=== PATIENT | male | born 1995 | race Caucasian/White ===

== ENCOUNTER 2016-06-28 18:50 | Inpatient (IN) | payer MEDICAID, OTHER ==
[~2016-06-28] VITALS: Ht 175.3 cm; Wt 127.9 kg
[~2016-06-28 18:50] MED LIST: GABA-531 PO; QUET300T2 PO; VENL-68 PO
[2016-06-28 19:35] LABS: BASOPHILS % (AUTO) 0.6 % (0.0-2.0); EOSINOPHILS % (AUTO) 0.8 % (1.0-6.0); HEMATOCRIT 42.2 % (41-53); HEMOGLOBIN 13.8 g/dL (13.5-17.5); LYMPHOCYTES # (AUTO) 1.9 K/uL (1.0-4.8); LYMPHOCYTES % (AUTO) 16.5 % (22.0-44.0); MEAN CORPUSCULAR HEMOGLOBIN 28.5 pg (26.0-34.0); MEAN CORPUSCULAR HGB CONC 32.7 G/dL (31.0-37.0); MEAN CORPUSCULAR VOLUME 87 fL (80-100); MONOCYTES # (AUTO) 0.9 K/uL (0.1-1.0); MONOCYTES % (AUTO) 7.3 % (2.0-9.0); NEUTROPHILS # (AUTO) 8.7 K/uL (1.8-7.7); NEUTROPHILS % (AUTO) 74.8 % (40.0-70.0); PLATELET COUNT (AUTO) 327 K/uL (150-450); RED BLOOD CELL COUNT(AUTO) 4.85 MIL/uL (4.50-5.90); RED CELL DISTRIBUTION WIDTH 14.4 % (11.5-14.5); WHITE BLOOD COUNT (AUTO) 11.7 K/uL (4.5-11.0)
[2016-06-28] MEDS ORDERED: QUEtiapine FUMARATE 100 MG TABLET PO PRN (20:00)
[2016-06-28] MEDS ORDERED: ZOLPIDEM TARTRATE 10 MG TABLET PO PRN (20:00)
[2016-06-28] MEDS: LORazepam 2 MG TABLET PO PRN (20:51)
[2016-06-28 21:17] LABS: ANION GAP 12 mmol/L (8-16); CALCIUM, TOTAL 9.1 mg/dL (8.8-10.5); CARBON DIOXIDE 25 mmol/L (22-29); CHLORIDE 104 mmol/L (98-107); CREATININE 0.79 mg/dL (0.60-1.30); GLOMERULAR FILTR. RATE CALC > 60 mL/min (>60); POTASSIUM 3.8 mmol/L (3.5-5.1); SODIUM SERUM 141 mmol/L (136-145); UREA NITROGEN, BLOOD 13 mg/dL (7-18)
[2016-06-28 21:23] LABS: ALANINE AMINOTRANSFERASE 49 U/L (12-78); ALBUMIN 3.8 g/dL (3.4-5.0); ASPARTATE AMINOTRANSFERASE 19 U/L (15-37); BILIRUBIN,TOTAL 0.1 mg/dL (0.1-1.0)
[2016-06-28] MEDS: GABAPENTIN 300 MG CAPSULE PO SCH (21:26)
[2016-06-28] MEDS: QUEtiapine FUMARATE 300 MG TABLET PO SCH (21:26)
[2016-06-29 01:03] VITALS: BP 116/75
[2016-06-29] MEDS ORDERED: INFLUENZA VIRUS VACCINE QVS 2016-17 (3YR+)/PF 60 MCG/0.5 ML SYRINGE IM ONE (01:45)
[2016-06-29] MEDS: GABAPENTIN 300 MG CAPSULE PO SCH ×3 (09:50→16:03)
[2016-06-29] MEDS: VENLAFAXINE HCL 150 MG ER CAPSULE PO SCH (09:50)
[2016-06-29] MEDS: LORazepam 2 MG TABLET PO PRN ×3 (16:03→20:55)
[2016-06-29 16:15] VITALS: BP 119/87
[2016-06-29] MEDS: QUEtiapine FUMARATE 300 MG TABLET PO SCH (20:02)
[2016-06-30 06:26] VITALS: BP 104/52
[2016-06-30] MEDS ORDERED: ACETAMINOPHEN 325 MG TABLET PO PRN (08:15)
[2016-06-30] MEDS ORDERED: IBUPROFEN 400 MG TABLET PO PRN (08:15)
[2016-06-30 08:32] VITALS: BP 113/71
[2016-06-30] MEDS: VENLAFAXINE HCL 150 MG ER CAPSULE PO SCH (08:56)
[2016-06-30] MEDS: GABAPENTIN 300 MG CAPSULE PO SCH ×3 (08:56→16:25)
[2016-06-30] MEDS: LORazepam 2 MG TABLET PO PRN ×2 (09:31→16:25)
[2016-06-30 16:10] VITALS: BP 137/84
[2016-06-30] MEDS: QUEtiapine FUMARATE 300 MG TABLET PO SCH (20:58)
[2016-07-01 00:24] VITALS: BP 122/66
[2016-07-01 06:43] VITALS: BP 142/89
[2016-07-01] MEDS: LORazepam 2 MG TABLET PO PRN (06:47)
[2016-07-01 08:00] LABS: BASOPHILS # (AUTO) 0.05 K/uL (0.00-0.20); BASOPHILS % (AUTO) 0.5 % (0.0-2.0); EOSINOPHILS # (AUTO) 0.32 K/uL (0.00-0.70); EOSINOPHILS % (AUTO) 3.37 % (1.0-6.0); HEMATOCRIT 41.2 % (41-53); HEMOGLOBIN 13.4 g/dL (13.5-17.5); LYMPHOCYTES # (AUTO) 2.5 K/uL (1.0-4.8); LYMPHOCYTES % (AUTO) 26.2 % (22.0-44.0); MEAN CORPUSCULAR HEMOGLOBIN 28.4 pg (26.0-34.0); MEAN CORPUSCULAR HGB CONC 32.5 G/dL (31.0-37.0); MEAN CORPUSCULAR VOLUME 87 fL (80-100); MONOCYTES # (AUTO) 0.8 K/uL (0.1-1.0); MONOCYTES % (AUTO) 8.6 % (2.0-9.0); NEUTROPHILS # (AUTO) 5.8 K/uL (1.8-7.7); NEUTROPHILS % (AUTO) 61.3 % (40.0-70.0); PLATELET COUNT (AUTO) 276 K/uL (150-450); RED BLOOD CELL COUNT(AUTO) 4.71 MIL/uL (4.50-5.90); RED CELL DISTRIBUTION WIDTH 14.3 % (11.5-14.5); WHITE BLOOD COUNT (AUTO) 9.4 K/uL (4.5-11.0)
[2016-07-01 08:06] VITALS: BP 116/88
[2016-07-01 08:21] LABS: HEMOGLOBIN A1C 5.7 % (4.5-6.2)
[2016-07-01 08:41] LABS: THYROID STIMULATING HORMONE 0.93 uIU/mL (0.36-3.74)
[2016-07-01] MEDS: GABAPENTIN 300 MG CAPSULE PO SCH ×2 (10:03→12:56)
[2016-07-01] MEDS: VENLAFAXINE HCL 150 MG ER CAPSULE PO SCH (10:03)
== END 2016-07-01 14:00 | disposition home or self-care (01) | DRG 750 ==
LOC: EMS 18:54 → B2S 20:30
PROC: 3E0234Z Introduction of Serum, Toxoid and Vaccine into Muscle, Percutaneous Approach (ICD-10-PCS; principal; 2016-06-29)
DX: F25.1 Schizoaffective disorder, depressive type (principal); R45.851 Suicidal ideations; Z68.41 Body mass index [BMI] 40.0-44.9, adult; F41.9 Anxiety disorder, unspecified; F17.210 Nicotine dependence, cigarettes, uncomplicated; F11.10 Opioid abuse, uncomplicated; D72.829 Elevated white blood cell count, unspecified; Z23 Encounter for immunization; Z79.899 Other long term (current) drug therapy; Z71.51 Drug abuse counseling and surveillance of drug abuser; Z91.5 Personal history of self-harm; E66.9 Obesity, unspecified
CPT/HCPCS: 83036; 84443; 90471; 99285; G0480

== ENCOUNTER 2016-07-10 19:10 | Emergency (ER) | payer MEDICAID ==
[~2016-07-10] VITALS: Ht 175.3 cm; Wt 100.0 kg
[2016-07-10 19:34] VITALS: BP 111/60
[2016-07-10 20:23] LABS: BASOPHILS % (AUTO) 0.5 % (0.0-2.0); EOSINOPHILS % (AUTO) 1.9 % (1.0-6.0); HEMOGLOBIN 12.8 g/dL (13.5-17.5); LYMPHOCYTES # (AUTO) 1.6 K/uL (1.0-4.8); LYMPHOCYTES % (AUTO) 11.9 % (22.0-44.0); MEAN CORPUSCULAR HEMOGLOBIN 28.6 pg (26.0-34.0); MEAN CORPUSCULAR HGB CONC 32.8 G/dL (31.0-37.0); MEAN CORPUSCULAR VOLUME 87 fL (80-100); MONOCYTES # (AUTO) 0.9 K/uL (0.1-1.0); MONOCYTES % (AUTO) 6.8 % (2.0-9.0); NEUTROPHILS # (AUTO) 10.4 K/uL (1.8-7.7); NEUTROPHILS % (AUTO) 78.9 % (40.0-70.0); PLATELET COUNT (AUTO) 295 K/uL (150-450); RED BLOOD CELL COUNT(AUTO) 4.47 MIL/uL (4.50-5.90); RED CELL DISTRIBUTION WIDTH 13.9 % (11.5-14.5); WHITE BLOOD COUNT (AUTO) 13.2 K/uL (4.5-11.0)
[2016-07-10 20:37] LABS: ANION GAP 9 mmol/L (8-16); CALCIUM, TOTAL 8.6 mg/dL (8.8-10.5); CARBON DIOXIDE 30 mmol/L (22-29); CHLORIDE 101 mmol/L (98-107); CREATININE 0.93 mg/dL (0.60-1.30); GLOMERULAR FILTR. RATE CALC > 60 mL/min (>60); POTASSIUM 3.8 mmol/L (3.5-5.1); SODIUM SERUM 140 mmol/L (136-145); UREA NITROGEN, BLOOD 10 mg/dL (7-18)
[2016-07-10 20:42] LABS: ALANINE AMINOTRANSFERASE 46 U/L (12-78); ALBUMIN 3.5 g/dL (3.4-5.0); ASPARTATE AMINOTRANSFERASE 23 U/L (15-37); BILIRUBIN,TOTAL 0.2 mg/dL (0.1-1.0); TOTAL PROTEIN, SERUM 7.6 g/dL (6.4-8.2)
== END 2016-07-11 00:48 | disposition left against medical advice (07) ==
LOC: EMS 19:12
DX: F41.9 Anxiety disorder, unspecified (principal); F32.9 Major depressive disorder, single episode, unspecified; F20.9 Schizophrenia, unspecified; F17.210 Nicotine dependence, cigarettes, uncomplicated; F12.90 Cannabis use, unspecified, uncomplicated; F11.90 Opioid use, unspecified, uncomplicated; Z76.0 Encounter for issue of repeat prescription; Z53.21 Procedure and treatment not carried out due to patient leaving prior to being seen by health care provider
CPT/HCPCS: 36415; 80053; 80307; 85025; G0480

== ENCOUNTER 2016-07-21 03:31 | Inpatient (IN) | payer MEDICAID ==
[~2016-07-21] VITALS: Ht 175.3 cm; Wt 126.6 kg
[2016-07-21 04:24] LABS: BASOPHILS # (AUTO) 0.14 K/uL (0.00-0.20); BASOPHILS % (AUTO) 1.1 % (0.0-2.0); EOSINOPHILS # (AUTO) 0.13 K/uL (0.00-0.70); EOSINOPHILS % (AUTO) 1.03 % (1.0-6.0); HEMATOCRIT 41.9 % (41-53); HEMOGLOBIN 13.9 g/dL (13.5-17.5); LYMPHOCYTES # (AUTO) 2.1 K/uL (1.0-4.8); MEAN CORPUSCULAR HEMOGLOBIN 28.5 pg (26.0-34.0); MEAN CORPUSCULAR HGB CONC 33.1 G/dL (31.0-37.0); MEAN CORPUSCULAR VOLUME 86 fL (80-100); MONOCYTES # (AUTO) 0.7 K/uL (0.1-1.0); MONOCYTES % (AUTO) 5.4 % (2.0-9.0); NEUTROPHILS # (AUTO) 9.8 K/uL (1.8-7.7); NEUTROPHILS % (AUTO) 76.5 % (40.0-70.0); PLATELET COUNT (AUTO) 327 K/uL (150-450); RED BLOOD CELL COUNT(AUTO) 4.87 MIL/uL (4.50-5.90); RED CELL DISTRIBUTION WIDTH 13.9 % (11.5-14.5); WHITE BLOOD COUNT (AUTO) 12.8 K/uL (4.5-11.0)
[2016-07-21 04:29] LABS: ANION GAP 7 mmol/L (8-16); CALCIUM, TOTAL 9.5 mg/dL (8.8-10.5); CARBON DIOXIDE 32 mmol/L (22-29); CHLORIDE 102 mmol/L (98-107); CREATININE 0.97 mg/dL (0.60-1.30); GLOMERULAR FILTR. RATE CALC > 60 mL/min (>60); POTASSIUM 4.4 mmol/L (3.5-5.1); SODIUM SERUM 141 mmol/L (136-145); UREA NITROGEN, BLOOD 12 mg/dL (7-18)
[2016-07-21 04:34] LABS: ALANINE AMINOTRANSFERASE 46 U/L (12-78); ALBUMIN 3.9 g/dL (3.4-5.0); ASPARTATE AMINOTRANSFERASE 18 U/L (15-37); BILIRUBIN,TOTAL 0.3 mg/dL (0.1-1.0); TOTAL PROTEIN, SERUM 8.3 g/dL (6.4-8.2)
[2016-07-21] MEDS ORDERED: ZOLPIDEM TARTRATE 10 MG TABLET PO PRN (05:15)
[2016-07-21] MEDS ORDERED: LORazepam 2 MG TABLET PO ONE (06:15)
[2016-07-21 09:00] VITALS: BP 120/70
[2016-07-21] MEDS: LORazepam 2 MG TABLET PO PRN (16:05)
[2016-07-21] MEDS: BACITRACIN 28.4 GM OINTMENT TP SCH (16:06)
[2016-07-21 17:04] VITALS: BP 116/59
[2016-07-21] MEDS: QUEtiapine FUMARATE 300 MG TABLET PO SCH (21:17)
[2016-07-21] MEDS ORDERED: IBUPROFEN 400 MG TABLET PO PRN (22:45)
[2016-07-21] MEDS ORDERED: ACETAMINOPHEN 325 MG TABLET PO PRN (22:45)
[2016-07-22 07:02] VITALS: BP 120/68
[2016-07-22 07:05] LABS: BASOPHILS % (AUTO) 0.2 % (0.0-2.0); HEMATOCRIT 41.7 % (41-53); HEMOGLOBIN 13.7 g/dL (13.5-17.5); LYMPHOCYTES % (AUTO) 21.4 % (22.0-44.0); MEAN CORPUSCULAR HEMOGLOBIN 28.6 pg (26.0-34.0); MEAN CORPUSCULAR HGB CONC 32.9 G/dL (31.0-37.0); MEAN CORPUSCULAR VOLUME 87 fL (80-100); MONOCYTES # (AUTO) 0.6 K/uL (0.1-1.0); MONOCYTES % (AUTO) 6.7 % (2.0-9.0); NEUTROPHILS # (AUTO) 6.5 K/uL (1.8-7.7); NEUTROPHILS % (AUTO) 68.7 % (40.0-70.0); PLATELET COUNT (AUTO) 304 K/uL (150-450); RED CELL DISTRIBUTION WIDTH 13.9 % (11.5-14.5); WHITE BLOOD COUNT (AUTO) 9.5 K/uL (4.5-11.0)
[2016-07-22 07:39] LABS: THYROID STIMULATING HORMONE 1.05 uIU/mL (0.36-3.74)
[2016-07-22 07:56] LABS: HEMOGLOBIN A1C 5.6 % (4.5-6.2)
[2016-07-22 08:30] VITALS: BP 131/91
[2016-07-22] MEDS: VENLAFAXINE HCL 150 MG ER CAPSULE PO SCH (08:53)
[2016-07-22] MEDS: LORazepam 2 MG TABLET PO PRN ×2 (08:54→16:19)
[2016-07-22] MEDS: HALOPERIDOL 5 MG TABLET PO PRN ×2 (08:54→16:19)
[2016-07-22] MEDS ORDERED: VENLAFAXINE HCL 150 MG ER CAPSULE PO SCH (09:00)
[2016-07-22] MEDS: BACITRACIN 28.4 GM OINTMENT TP SCH ×2 (10:23→16:20)
[2016-07-22] MEDS: QUEtiapine FUMARATE 300 MG TABLET PO SCH (20:29)
[2016-07-22 20:37] VITALS: BP 128/71
[2016-07-23 08:07] VITALS: BP 144/86
[2016-07-23] MEDS: HALOPERIDOL 5 MG TABLET PO PRN ×2 (08:53→16:18)
[2016-07-23] MEDS: VENLAFAXINE HCL 150 MG ER CAPSULE PO SCH (08:53)
[2016-07-23] MEDS: LORazepam 2 MG TABLET PO PRN ×2 (08:53→16:18)
[2016-07-23] MEDS: BACITRACIN 28.4 GM OINTMENT TP SCH ×2 (08:58→16:27)
[2016-07-23 16:00] VITALS: BP 132/79
[2016-07-23] MEDS: QUEtiapine FUMARATE 300 MG TABLET PO SCH (21:20)
[2016-07-24] MEDS: LORazepam 2 MG TABLET PO PRN ×2 (08:06→12:06)
[2016-07-24] MEDS: VENLAFAXINE HCL 150 MG ER CAPSULE PO SCH (08:06)
[2016-07-24 09:53] VITALS: BP 119/84
[2016-07-24] MEDS: BACITRACIN 28.4 GM OINTMENT TP SCH (11:55)
[2016-07-24] MEDS ORDERED: BACI120O TP (15:00)
== END 2016-07-24 16:30 | disposition home or self-care (01) | DRG 750 ==
LOC: EMS 03:32 → 3EI 07:50
DX: F25.1 Schizoaffective disorder, depressive type (principal); R45.851 Suicidal ideations; F41.9 Anxiety disorder, unspecified; D72.829 Elevated white blood cell count, unspecified; F17.210 Nicotine dependence, cigarettes, uncomplicated; F11.10 Opioid abuse, uncomplicated; F10.10 Alcohol abuse, uncomplicated; F12.10 Cannabis abuse, uncomplicated; F15.10 Other stimulant abuse, uncomplicated; Z79.899 Other long term (current) drug therapy; Z71.51 Drug abuse counseling and surveillance of drug abuser; Z71.41 Alcohol abuse counseling and surveillance of alcoholic
CPT/HCPCS: 83036; 84443; 87081; 99285; G0480

== ENCOUNTER 2016-07-26 01:41 | Inpatient (IN) | payer MEDICAID ==
[~2016-07-26] VITALS: Ht 175.3 cm; Wt 128.7 kg
[~2016-07-26 01:41] MED LIST changes: +BACI120O TP; -GABA-531 PO
[2016-07-26 02:13] LABS: BASOPHILS # (AUTO) 0.09 K/uL (0.00-0.20); BASOPHILS % (AUTO) 0.7 % (0.0-2.0); EOSINOPHILS # (AUTO) 0.37 K/uL (0.00-0.70); EOSINOPHILS % (AUTO) 2.94 % (1.0-6.0); HEMATOCRIT 43.9 % (41-53); HEMOGLOBIN 14.7 g/dL (13.5-17.5); LYMPHOCYTES # (AUTO) 2.5 K/uL (1.0-4.8); LYMPHOCYTES % (AUTO) 20.3 % (22.0-44.0); MEAN CORPUSCULAR HEMOGLOBIN 28.5 pg (26.0-34.0); MEAN CORPUSCULAR HGB CONC 33.4 G/dL (31.0-37.0); MEAN CORPUSCULAR VOLUME 85 fL (80-100); MONOCYTES % (AUTO) 8.3 % (2.0-9.0); NEUTROPHILS # (AUTO) 8.4 K/uL (1.8-7.7); NEUTROPHILS % (AUTO) 67.7 % (40.0-70.0); PLATELET COUNT (AUTO) 381 K/uL (150-450); RED BLOOD CELL COUNT(AUTO) 5.14 MIL/uL (4.50-5.90); RED CELL DISTRIBUTION WIDTH 14.8 % (11.5-14.5); WHITE BLOOD COUNT (AUTO) 12.5 K/uL (4.5-11.0)
[2016-07-26 02:14] LABS: ANION GAP 8 mmol/L (8-16); CALCIUM, TOTAL 9.4 mg/dL (8.8-10.5); CARBON DIOXIDE 29 mmol/L (22-29); CHLORIDE 102 mmol/L (98-107); CREATININE 0.82 mg/dL (0.60-1.30); GLOMERULAR FILTR. RATE CALC > 60 mL/min (>60); POTASSIUM 4.1 mmol/L (3.5-5.1); SODIUM SERUM 139 mmol/L (136-145); UREA NITROGEN, BLOOD 14 mg/dL (7-18)
[2016-07-26 02:21] LABS: ALANINE AMINOTRANSFERASE 53 U/L (12-78); ALBUMIN 4.1 g/dL (3.4-5.0); ASPARTATE AMINOTRANSFERASE 23 U/L (15-37); BILIRUBIN,TOTAL 0.4 mg/dL (0.1-1.0); TOTAL PROTEIN, SERUM 8.5 g/dL (6.4-8.2)
[2016-07-26] MEDS ORDERED: LORazepam 2 MG TABLET PO ONE (03:45)
[2016-07-26] MEDS ORDERED: PNEUMOCOCCAL VACCINE POLYVALENT 0.5 ML VIAL [PPSV23] IM ONE (04:30)
[2016-07-26] MEDS ORDERED: -PHARMACY VACCINE NOTE- MISC ONE ×2 (04:30)
[2016-07-26 04:42] VITALS: BP 148/76
[2016-07-26] MEDS ORDERED: MAGNESIUM HYDROXIDE SUSPENSION 30 ML UDCUP PO PRN (06:45)
[2016-07-26] MEDS ORDERED: ACETAMINOPHEN 325 MG TABLET PO PRN ×2 (06:45→09:15)
[2016-07-26 08:30] VITALS: BP 118/62
[2016-07-26] MEDS ORDERED: IBUPROFEN 400 MG TABLET PO PRN (09:15)
[2016-07-26] MEDS: LORazepam 2 MG TABLET PO PRN ×2 (11:25→17:51)
[2016-07-26] MEDS: HALOPERIDOL 5 MG TABLET PO PRN ×2 (11:26→17:51)
[2016-07-26 19:34] VITALS: BP 130/74
[2016-07-27] MEDS: LORazepam 2 MG TABLET PO PRN ×2 (08:00→16:03)
[2016-07-27] MEDS: HALOPERIDOL 5 MG TABLET PO PRN ×2 (08:00→16:03)
[2016-07-27 08:43] VITALS: BP 144/62
[2016-07-27] MEDS: VENLAFAXINE HCL 75 MG ER CAPSULE PO SCH (09:01)
[2016-07-27] MEDS: GABAPENTIN 300 MG CAPSULE PO SCH ×3 (09:01→16:02)
[2016-07-27 09:32] LABS: APPEARANCE,URINE CLEAR (CLEAR); GLUCOSE, URINE (UA) NEGATIVE (NEGATIVE); KETONES,URINE NEGATIVE (NEGATIVE); LEUKOCYTE ESTERASE ,URINE NEGATIVE (NEGATIVE); OCCULT BLOOD,URINE NEGATIVE (NEGATIVE); PROTEIN,URINE NEGATIVE (NEGATIVE)
[2016-07-27 09:34] LABS: ADD UA MICROSCOPIC NO
[2016-07-27 16:19] VITALS: BP 109/54
[2016-07-27] MEDS: QUEtiapine FUMARATE 300 MG TABLET PO SCH (20:09)
[2016-07-28 08:00] VITALS: BP 128/78
[2016-07-28] MEDS: HALOPERIDOL 5 MG TABLET PO PRN (08:49)
[2016-07-28] MEDS: LORazepam 2 MG TABLET PO PRN ×3 (08:49→20:08)
[2016-07-28] MEDS: VENLAFAXINE HCL 75 MG ER CAPSULE PO SCH (08:49)
[2016-07-28] MEDS: GABAPENTIN 300 MG CAPSULE PO SCH ×3 (08:49→16:03)
[2016-07-28 17:39] VITALS: BP 134/93
[2016-07-28] MEDS: QUEtiapine FUMARATE 300 MG TABLET PO SCH (20:09)
[2016-07-28] MEDS ORDERED: VENL-67 PO (22:05)
[2016-07-28] MEDS ORDERED: GABA-531 PO (22:05)
[2016-07-29 06:46] VITALS: BP 125/85
== END 2016-07-29 07:30 | disposition home or self-care (01) | DRG 750 ==
LOC: EMS 01:42 → 3EI 02:00
DX: F25.1 Schizoaffective disorder, depressive type (principal); R45.851 Suicidal ideations; Z59.0 Homelessness; F25.0 Schizoaffective disorder, bipolar type; F60.3 Borderline personality disorder; R00.0 Tachycardia, unspecified; F41.9 Anxiety disorder, unspecified; F17.210 Nicotine dependence, cigarettes, uncomplicated; F12.90 Cannabis use, unspecified, uncomplicated; F11.90 Opioid use, unspecified, uncomplicated; Z71.51 Drug abuse counseling and surveillance of drug abuser; Z28.21 Immunization not carried out because of patient refusal; Z79.899 Other long term (current) drug therapy; Z62.819 Personal history of unspecified abuse in childhood; Z81.3 Family history of other psychoactive substance abuse and dependence
CPT/HCPCS: 87081; 99285; G0480

== ENCOUNTER 2016-08-04 21:46 | Inpatient (IN) | payer MEDICAID ==
[~2016-08-04] VITALS: Ht 175.3 cm; Wt 124.6 kg
[~2016-08-04 21:46] MED LIST changes: -BACI120O TP; +GABA-531 PO; +VENL-67 PO; -VENL-68 PO
[2016-08-04 22:34] LABS: BASOPHILS % (AUTO) 0.7 % (0.0-2.0); EOSINOPHILS % (AUTO) 1.3 % (1.0-6.0); HEMATOCRIT 39.8 % (41-53); HEMOGLOBIN 12.8 g/dL (13.5-17.5); LYMPHOCYTES # (AUTO) 2.3 K/uL (1.0-4.8); LYMPHOCYTES % (AUTO) 18.6 % (22.0-44.0); MEAN CORPUSCULAR HEMOGLOBIN 28.1 pg (26.0-34.0); MEAN CORPUSCULAR HGB CONC 32.2 G/dL (31.0-37.0); MEAN CORPUSCULAR VOLUME 87 fL (80-100); MONOCYTES # (AUTO) 0.8 K/uL (0.1-1.0); MONOCYTES % (AUTO) 6.7 % (2.0-9.0); NEUTROPHILS # (AUTO) 8.8 K/uL (1.8-7.7); NEUTROPHILS % (AUTO) 72.7 % (40.0-70.0); PLATELET COUNT (AUTO) 246 K/uL (150-450); RED BLOOD CELL COUNT(AUTO) 4.56 MIL/uL (4.50-5.90); RED CELL DISTRIBUTION WIDTH 14.5 % (11.5-14.5); WHITE BLOOD COUNT (AUTO) 12.1 K/uL (4.5-11.0)
[2016-08-04 22:54] LABS: ANION GAP 11 mmol/L (8-16); CALCIUM, TOTAL 8.3 mg/dL (8.8-10.5); CARBON DIOXIDE 25 mmol/L (22-29); CHLORIDE 105 mmol/L (98-107); GLOMERULAR FILTR. RATE CALC > 60 mL/min (>60); SODIUM SERUM 141 mmol/L (136-145); UREA NITROGEN, BLOOD 13 mg/dL (7-18)
[2016-08-04 22:57] LABS: ALANINE AMINOTRANSFERASE 51 U/L (12-78); ALBUMIN 3.6 g/dL (3.4-5.0); ASPARTATE AMINOTRANSFERASE 23 U/L (15-37); BILIRUBIN,TOTAL 0.5 mg/dL (0.1-1.0); TOTAL PROTEIN, SERUM 7.4 g/dL (6.4-8.2)
[2016-08-04] MEDS ORDERED: ZOLPIDEM TARTRATE 10 MG TABLET PO PRN (23:15)
[2016-08-04] MEDS ORDERED: DiphenhydrAMINE HCL 50 MG/ML VIAL IM ONE (23:30)
[2016-08-04] MEDS ORDERED: LORazepam 2 MG/ML VIAL IM ONE (23:30)
[2016-08-04] MEDS ORDERED: HALOPERIDOL LACTATE 5 MG/ML VIAL IM ONE (23:30)
[2016-08-04 23:38] VITALS: BP 148/72
[2016-08-05] MEDS ORDERED: POTASSIUM CHLORIDE 20 MEQ ER TABLET PO ONE (00:15)
[2016-08-05 01:36] VITALS: BP 120/74
[2016-08-05] MEDS ORDERED: PNEUMOCOCCAL VACCINE POLYVALENT 0.5 ML VIAL [PPSV23] IM ONE (03:15)
[2016-08-05 08:00] VITALS: BP 130/64
[2016-08-05] MEDS: VENLAFAXINE HCL 75 MG ER CAPSULE PO SCH (09:48)
[2016-08-05] MEDS: LORazepam 2 MG TABLET PO PRN ×2 (09:49→17:10)
[2016-08-05] MEDS: GABAPENTIN 300 MG CAPSULE PO SCH ×3 (09:49→17:10)
[2016-08-05 16:58] VITALS: BP 119/70
[2016-08-05] MEDS: QUEtiapine FUMARATE 300 MG TABLET PO SCH (21:23)
[2016-08-05] MEDS ORDERED: POTASSIUM CHLORIDE 10 MEQ ER TABLET PO ONE (23:00)
[2016-08-06 08:00] VITALS: BP 129/83
[2016-08-06] MEDS: GABAPENTIN 300 MG CAPSULE PO SCH ×3 (09:13→17:07)
[2016-08-06] MEDS: LORazepam 2 MG TABLET PO PRN ×2 (09:13→16:19)
[2016-08-06] MEDS: HALOPERIDOL 5 MG TABLET PO PRN ×2 (09:14→16:19)
[2016-08-06] MEDS: VENLAFAXINE HCL 75 MG ER CAPSULE PO SCH (09:14)
[2016-08-06 16:30] VITALS: BP 126/81
[2016-08-06] MEDS: QUEtiapine FUMARATE 300 MG TABLET PO SCH (21:23)
[2016-08-07] MEDS: VENLAFAXINE HCL 75 MG ER CAPSULE PO SCH (08:14)
[2016-08-07] MEDS: GABAPENTIN 300 MG CAPSULE PO SCH ×3 (08:15→16:13)
[2016-08-07] MEDS: LORazepam 2 MG TABLET PO PRN ×3 (08:16→20:21)
[2016-08-07 09:00] VITALS: BP 115/81
[2016-08-07 17:09] VITALS: BP 141/67
[2016-08-07] MEDS: QUEtiapine FUMARATE 300 MG TABLET PO SCH (20:07)
[2016-08-07] MEDS: HALOPERIDOL 5 MG TABLET PO PRN (20:21)
[2016-08-08] MEDS: VENLAFAXINE HCL 75 MG ER CAPSULE PO SCH (07:44)
[2016-08-08] MEDS: GABAPENTIN 300 MG CAPSULE PO SCH (07:45)
== END 2016-08-08 09:35 | disposition home or self-care (01) | DRG 750 ==
LOC: EMS 21:48 → 3EI 08-05 00:07
DX: F25.0 Schizoaffective disorder, bipolar type (principal); R45.851 Suicidal ideations; Z59.0 Homelessness; E87.6 Hypokalemia; F12.90 Cannabis use, unspecified, uncomplicated; F41.9 Anxiety disorder, unspecified; F17.210 Nicotine dependence, cigarettes, uncomplicated; F11.90 Opioid use, unspecified, uncomplicated; D72.829 Elevated white blood cell count, unspecified; Z79.899 Other long term (current) drug therapy; Z28.21 Immunization not carried out because of patient refusal
CPT/HCPCS: 84132; 87081; 96372; 99285; G0480; J1200; J1630; J2060

== ENCOUNTER 2016-08-18 18:02 | Emergency (ER) | payer MEDICAID ==
[~2016-08-18] VITALS: Ht 177.8 cm; Wt 100.0 kg
[2016-08-18 19:00] VITALS: BP 129/97
[2016-08-18 19:14] LABS: BASOPHILS % (AUTO) 0.2 % (0.0-2.0); EOSINOPHILS % (AUTO) 0.4 % (1.0-6.0); HEMATOCRIT 41.2 % (41-53); HEMOGLOBIN 13.3 g/dL (13.5-17.5); LYMPHOCYTES # (AUTO) 2.1 K/uL (1.0-4.8); LYMPHOCYTES % (AUTO) 16.5 % (22.0-44.0); MEAN CORPUSCULAR HEMOGLOBIN 28.3 pg (26.0-34.0); MEAN CORPUSCULAR HGB CONC 32.3 G/dL (31.0-37.0); MEAN CORPUSCULAR VOLUME 88 fL (80-100); MONOCYTES # (AUTO) 0.7 K/uL (0.1-1.0); MONOCYTES % (AUTO) 5.1 % (2.0-9.0); NEUTROPHILS % (AUTO) 77.8 % (40.0-70.0); PLATELET COUNT (AUTO) 353 K/uL (150-450); RED CELL DISTRIBUTION WIDTH 14.6 % (11.5-14.5); WHITE BLOOD COUNT (AUTO) 12.8 K/uL (4.5-11.0)
[2016-08-18 19:24] LABS: ANION GAP 10 mmol/L (8-16); CALCIUM, TOTAL 9.3 mg/dL (8.8-10.5); CARBON DIOXIDE 27 mmol/L (22-29); CHLORIDE 103 mmol/L (98-107); CREATININE 0.89 mg/dL (0.60-1.30); GLOMERULAR FILTR. RATE CALC > 60 mL/min (>60); POTASSIUM 3.8 mmol/L (3.5-5.1); SODIUM SERUM 140 mmol/L (136-145); UREA NITROGEN, BLOOD 8 mg/dL (7-18)
[2016-08-18 19:30] LABS: ALANINE AMINOTRANSFERASE 45 U/L (12-78); ALBUMIN 3.8 g/dL (3.4-5.0); ASPARTATE AMINOTRANSFERASE 20 U/L (15-37); BILIRUBIN,TOTAL 0.4 mg/dL (0.1-1.0); TOTAL PROTEIN, SERUM 7.9 g/dL (6.4-8.2)
== END 2016-08-18 20:02 | disposition left against medical advice (07) ==
LOC: EMS 18:12
DX: Z00.8 Encounter for other general examination (principal); Z53.21 Procedure and treatment not carried out due to patient leaving prior to being seen by health care provider
CPT/HCPCS: 80053; 85025; G0480

== ENCOUNTER 2016-08-24 21:57 | Emergency (ER) | payer MEDICAID, OTHER ==
[~2016-08-24] VITALS: Ht 175.3 cm; Wt 126.0 kg
[2016-08-25] MEDS ORDERED: QUEtiapine FUMARATE 300 MG TABLET PO ONE (00:45)
[2016-08-25] MEDS ORDERED: VENLAFAXINE HCL 75 MG ER CAPSULE PO ONE (00:45)
[2016-08-25] MEDS ORDERED: GABAPENTIN 300 MG CAPSULE PO ONE (00:45)
[2016-08-25 06:42] VITALS: BP 130/84
== END 2016-08-25 06:51 | disposition home or self-care (01) ==
LOC: EMS 21:59
DX: F25.9 Schizoaffective disorder, unspecified (principal); F41.9 Anxiety disorder, unspecified; F32.9 Major depressive disorder, single episode, unspecified; F11.90 Opioid use, unspecified, uncomplicated; F12.90 Cannabis use, unspecified, uncomplicated; F19.90 Other psychoactive substance use, unspecified, uncomplicated; Z91.19 Patient's noncompliance with other medical treatment and regimen
CPT/HCPCS: 99284

== ENCOUNTER 2016-09-12 20:08 | Inpatient (IN) | payer MEDICAID, OTHER ==
[~2016-09-12] VITALS: Ht 175.3 cm; Wt 135.0 kg
[2016-09-12 21:04] LABS: ANION GAP 11 mmol/L (8-16); CALCIUM, TOTAL 8.6 mg/dL (8.8-10.5); CARBON DIOXIDE 27 mmol/L (22-29); CHLORIDE 103 mmol/L (98-107); GLOMERULAR FILTR. RATE CALC > 60 mL/min (>60); POTASSIUM 3.8 mmol/L (3.5-5.1); SODIUM SERUM 141 mmol/L (136-145); UREA NITROGEN, BLOOD 13 mg/dL (7-18)
[2016-09-12 21:05] LABS: BASOPHILS % (AUTO) 0.3 % (0.0-2.0); EOSINOPHILS % (AUTO) 2.9 % (1.0-6.0); HEMATOCRIT 41.8 % (41-53); HEMOGLOBIN 13.6 g/dL (13.5-17.5); LYMPHOCYTES # (AUTO) 2.3 K/uL (1.0-4.8); LYMPHOCYTES % (AUTO) 27.2 % (22.0-44.0); MEAN CORPUSCULAR HEMOGLOBIN 28.1 pg (26.0-34.0); MEAN CORPUSCULAR HGB CONC 32.5 G/dL (31.0-37.0); MEAN CORPUSCULAR VOLUME 86 fL (80-100); MONOCYTES # (AUTO) 0.7 K/uL (0.1-1.0); MONOCYTES % (AUTO) 7.8 % (2.0-9.0); NEUTROPHILS # (AUTO) 5.2 K/uL (1.8-7.7); NEUTROPHILS % (AUTO) 61.8 % (40.0-70.0); PLATELET COUNT (AUTO) 274 K/uL (150-450); RED BLOOD CELL COUNT(AUTO) 4.84 MIL/uL (4.50-5.90); RED CELL DISTRIBUTION WIDTH 15.1 % (11.5-14.5); WHITE BLOOD COUNT (AUTO) 8.4 K/uL (4.5-11.0)
[2016-09-12 21:10] LABS: ALANINE AMINOTRANSFERASE 50 U/L (12-78); ALBUMIN 3.4 g/dL (3.4-5.0); ASPARTATE AMINOTRANSFERASE 21 U/L (15-37); BILIRUBIN,TOTAL 0.2 mg/dL (0.1-1.0); TOTAL PROTEIN, SERUM 7.1 g/dL (6.4-8.2)
[2016-09-12 21:21] LABS: ACETAMINOPHEN < 2 mcg/mL (10-30)
[2016-09-12 21:34] LABS: SALICYLATE < 2.8 mg/dL (2.8-20.0)
[2016-09-12] MEDS ORDERED: ZOLPIDEM TARTRATE 10 MG TABLET PO PRN (22:30)
[2016-09-12] MEDS ORDERED: LORazepam 2 MG TABLET PO PRN (22:30)
[2016-09-12] MEDS ORDERED: HALOPERIDOL 5 MG TABLET PO PRN (22:30)
[2016-09-12 23:07] VITALS: BP 103/57
[2016-09-13 03:30] VITALS: BP 101/64
[2016-09-13 03:40] VITALS: BP 107/65
[2016-09-13 03:55] VITALS: BP 107/54
[2016-09-13 04:05] VITALS: BP 93/58
[2016-09-13 04:27] LABS: GLUCOSE,POINT OF CARE 74 MG/DL (70-110)
[2016-09-13 05:23] LABS: APPEARANCE,URINE TURBID (CLEAR); GLUCOSE, URINE (UA) NEGATIVE (NEGATIVE); KETONES,URINE NEGATIVE (NEGATIVE); LEUKOCYTE ESTERASE ,URINE NEGATIVE (NEGATIVE); OCCULT BLOOD,URINE NEGATIVE (NEGATIVE); PH,URINE 5.5 (5.0-8.0); PROTEIN,URINE NEGATIVE (NEGATIVE)
[2016-09-13 05:25] LABS: ADD UA MICROSCOPIC YES
[2016-09-13 05:57] LABS: CALCIUM OXALATE CRYSTALS,UR Few /LPF (None Seen); RBC,URINE 0-2 /HPF (0-2); SQUAMOUS EPITHELIAL CELL,UR Few /LPF (None Seen); WBC,URINE 0-2 /HPF (0-5)
[2016-09-13] MEDS ORDERED: GABAPENTIN 300 MG CAPSULE PO SCH (09:00)
[2016-09-13] MEDS ORDERED: VENLAFAXINE HCL 75 MG ER CAPSULE PO SCH (09:00)
[2016-09-13] MEDS ORDERED: IBUP-1546 PO (13:33)
[2016-09-13] MEDS ORDERED: ACET-2247 PO (13:33)
[2016-09-13] MEDS ORDERED: QUEtiapine FUMARATE 300 MG TABLET PO SCH (21:00)
== END 2016-09-13 04:41 | disposition short-term general hospital (02) | DRG 750 ==
LOC: EMS 20:10 → 3EI 23:23
PROVIDERS: ADMIT Psychiatry & Neurology Psychiatry; ATTEND Psychiatry & Neurology Psychiatry
DX: F25.9 Schizoaffective disorder, unspecified (principal); R45.851 Suicidal ideations; Z59.0 Homelessness; F31.9 Bipolar disorder, unspecified; F41.9 Anxiety disorder, unspecified; T40.2X2A Poisoning by other opioids, intentional self-harm, initial encounter; T42.6X2A Poisoning by other antiepileptic and sedative-hypnotic drugs, intentional self-harm, initial encounter; T42.4X2A Poisoning by benzodiazepines, intentional self-harm, initial encounter; T43.592A Poisoning by other antipsychotics and neuroleptics, intentional self-harm, initial encounter; F17.210 Nicotine dependence, cigarettes, uncomplicated; F11.90 Opioid use, unspecified, uncomplicated; Z79.899 Other long term (current) drug therapy; Y93.89 Activity, other specified; Y92.89 Other specified places as the place of occurrence of the external cause; Y99.8 Other external cause status
CPT/HCPCS: 82962; 87086; 93005; 99285; G0480; G0481

== ENCOUNTER 2016-09-13 05:00 | Inpatient (IN) | payer OTHER ==
[2016-09-13 05:36] VITALS: BP 109/62
[2016-09-13] MEDS ORDERED: 0.9% SODIUM CHLORIDE 10 ML SYRINGE IVP PRN (06:30)
[2016-09-13] MEDS ORDERED: PANTOPRAZOLE SODIUM 40 MG/VIAL IVP SCH (09:45)
[2016-09-13] MEDS ORDERED: SODIUM CHLORIDE 0.9% 1,000 ML IV SCH (09:45)
[2016-09-13 10:30] VITALS: BP 108/64
[2016-09-13] MEDS ORDERED: SODIUM CHLORIDE 0.9% 500 ML IV ONE (13:30)
[2016-09-13] MEDS ORDERED: IBUP-1546 PO (13:33)
[2016-09-13] MEDS ORDERED: ACET-2247 PO (13:33)
[2016-09-13 14:15] LABS: BASOPHILS % (AUTO) 0.4 % (0.0-2.0); EOSINOPHILS % (AUTO) 1.7 % (1.0-6.0); HEMATOCRIT 41.1 % (41-53); HEMOGLOBIN 13.1 g/dL (13.5-17.5); LYMPHOCYTES # (AUTO) 1.7 K/uL (1.0-4.8); LYMPHOCYTES % (AUTO) 15.9 % (22.0-44.0); MEAN CORPUSCULAR HEMOGLOBIN 28.1 pg (26.0-34.0); MEAN CORPUSCULAR HGB CONC 31.9 G/dL (31.0-37.0); MEAN CORPUSCULAR VOLUME 88 fL (80-100); MONOCYTES # (AUTO) 0.6 K/uL (0.1-1.0); MONOCYTES % (AUTO) 5.4 % (2.0-9.0); NEUTROPHILS # (AUTO) 8.1 K/uL (1.8-7.7); NEUTROPHILS % (AUTO) 76.6 % (40.0-70.0); PLATELET COUNT (AUTO) 269 K/uL (150-450); RED BLOOD CELL COUNT(AUTO) 4.66 MIL/uL (4.50-5.90); RED CELL DISTRIBUTION WIDTH 14.4 % (11.5-14.5); WHITE BLOOD COUNT (AUTO) 10.5 K/uL (4.5-11.0)
[2016-09-13 14:27] LABS: ANION GAP 5 mmol/L (8-16); CALCIUM, TOTAL 8.3 mg/dL (8.8-10.5); CARBON DIOXIDE 32 mmol/L (22-29); CHLORIDE 105 mmol/L (98-107); CREATININE 0.87 mg/dL (0.60-1.30); GLOMERULAR FILTR. RATE CALC > 60 mL/min (>60); POTASSIUM 4.7 mmol/L (3.5-5.1); SODIUM SERUM 142 mmol/L (136-145); UREA NITROGEN, BLOOD 12 mg/dL (7-18)
== END 2016-09-13 15:05 | DRG 812 ==
LOC: 5N 05:00
PROVIDERS: ADMIT Internal Medicine; ATTEND Internal Medicine
DX: T42.6X1A Poisoning by other antiepileptic and sedative-hypnotic drugs, accidental (unintentional), initial encounter (principal); G92 Toxic encephalopathy; R45.851 Suicidal ideations; F31.9 Bipolar disorder, unspecified; T43.211A Poisoning by selective serotonin and norepinephrine reuptake inhibitors, accidental (unintentional), initial encounter; T43.591A Poisoning by other antipsychotics and neuroleptics, accidental (unintentional), initial encounter; F20.9 Schizophrenia, unspecified; F19.90 Other psychoactive substance use, unspecified, uncomplicated; X58.XXXA Exposure to other specified factors, initial encounter; F11.90 Opioid use, unspecified, uncomplicated; Y93.89 Activity, other specified; Z59.0 Homelessness; Y92.89 Other specified places as the place of occurrence of the external cause; Y99.8 Other external cause status
CPT/HCPCS: C9113; J7030; J7040

== ENCOUNTER 2016-09-13 15:30 | Inpatient (IN) | payer MEDICAID ==
[~2016-09-13] VITALS: Ht 177.8 cm; Wt 123.4 kg
[~2016-09-13 15:30] MED LIST changes: +ACET-2247 PO; +IBUP-1546 PO; +ZOLPIDEM TARTRATE 10 MG TABLET PO PRN
[2016-09-13] MEDS ORDERED: IBUPROFEN 400 MG TABLET PO PRN (15:45)
[2016-09-13] MEDS ORDERED: ACETAMINOPHEN 325 MG TABLET PO PRN (15:45)
[2016-09-13 15:55] VITALS: BP 108/71
[2016-09-13 19:43] VITALS: BP 118/79
[2016-09-13] MEDS: LORazepam 2 MG TABLET PO PRN (20:32)
[2016-09-14 06:42] LABS: BASOPHILS % (AUTO) 0.4 % (0.0-2.0); EOSINOPHILS % (AUTO) 2.5 % (1.0-6.0); HEMATOCRIT 42.5 % (41-53); HEMOGLOBIN 13.5 g/dL (13.5-17.5); LYMPHOCYTES # (AUTO) 2.2 K/uL (1.0-4.8); LYMPHOCYTES % (AUTO) 25.2 % (22.0-44.0); MEAN CORPUSCULAR HEMOGLOBIN 27.9 pg (26.0-34.0); MEAN CORPUSCULAR HGB CONC 31.7 G/dL (31.0-37.0); MEAN CORPUSCULAR VOLUME 88 fL (80-100); MONOCYTES # (AUTO) 0.8 K/uL (0.1-1.0); MONOCYTES % (AUTO) 8.9 % (2.0-9.0); NEUTROPHILS # (AUTO) 5.5 K/uL (1.8-7.7); PLATELET COUNT (AUTO) 285 K/uL (150-450); RED BLOOD CELL COUNT(AUTO) 4.83 MIL/uL (4.50-5.90); RED CELL DISTRIBUTION WIDTH 14.8 % (11.5-14.5); WHITE BLOOD COUNT (AUTO) 8.7 K/uL (4.5-11.0)
[2016-09-14 07:11] LABS: ALANINE AMINOTRANSFERASE 47 U/L (12-78); ANION GAP 6 mmol/L (8-16); ASPARTATE AMINOTRANSFERASE 14 U/L (15-37); BILIRUBIN,TOTAL 0.2 mg/dL (0.1-1.0); CALCIUM, TOTAL 8.8 mg/dL (8.8-10.5); CARBON DIOXIDE 32 mmol/L (22-29); CHLORIDE 105 mmol/L (98-107); CREATININE 0.74 mg/dL (0.60-1.30); GLOMERULAR FILTR. RATE CALC > 60 mL/min (>60); POTASSIUM 4.9 mmol/L (3.5-5.1); SODIUM SERUM 143 mmol/L (136-145); TOTAL PROTEIN, SERUM 6.5 g/dL (6.4-8.2); UREA NITROGEN, BLOOD 16 mg/dL (7-18)
[2016-09-14 08:10] VITALS: BP 142/76
[2016-09-14] MEDS: LORazepam 2 MG TABLET PO PRN ×3 (10:14→21:57)
[2016-09-14 16:00] VITALS: BP 132/78
[2016-09-14] MEDS: HALOPERIDOL 5 MG TABLET PO PRN (16:05)
[2016-09-15 00:33] VITALS: BP 131/67
[2016-09-15] MEDS: LORazepam 2 MG TABLET PO PRN ×3 (09:04→22:25)
[2016-09-15 09:28] VITALS: BP 111/65
[2016-09-15 16:00] VITALS: BP 129/74
[2016-09-15] MEDS: DIVALPROEX SODIUM 500 MG DR TABLET PO SCH (16:33)
[2016-09-16 08:00] VITALS: BP 126/81
[2016-09-16] MEDS: HALOPERIDOL 5 MG TABLET PO PRN (08:36)
[2016-09-16] MEDS: LORazepam 2 MG TABLET PO PRN ×3 (08:36→21:35)
[2016-09-16] MEDS: DIVALPROEX SODIUM 500 MG DR TABLET PO SCH ×2 (08:36→15:58)
[2016-09-16] MEDS: NICOTINE 21 MG/24 HOUR PATCH TD SCH (13:08)
[2016-09-16 16:54] VITALS: BP 110/67
[2016-09-17] MEDS: LORazepam 2 MG TABLET PO PRN (07:47)
[2016-09-17 08:03] VITALS: BP 116/77
[2016-09-17] MEDS: NICOTINE 21 MG/24 HOUR PATCH TD SCH (08:03)
[2016-09-17] MEDS: DIVALPROEX SODIUM 500 MG DR TABLET PO SCH (08:03)
[2016-09-17] MEDS ORDERED: DIVA500T35 PO (11:26)
== END 2016-09-17 12:30 | disposition home or self-care (01) | DRG 750 ==
LOC: 3EI 16:05
PROVIDERS: ADMIT Psychiatry & Neurology Psychiatry; ATTEND Psychiatry & Neurology Psychiatry
DX: F25.9 Schizoaffective disorder, unspecified (principal); F32.9 Major depressive disorder, single episode, unspecified; F19.10 Other psychoactive substance abuse, uncomplicated; Z71.51 Drug abuse counseling and surveillance of drug abuser; Z79.899 Other long term (current) drug therapy; Z72.89 Other problems related to lifestyle

== ENCOUNTER 2016-10-17 20:03 | Emergency (ER) | payer MEDICAID, OTHER ==
[~2016-10-17] VITALS: Ht 177.8 cm; Wt 129.6 kg
[~2016-10-17 20:03] MED LIST changes: -ACET-2247 PO; +DIVA500T35 PO; -GABA-531 PO; -IBUP-1546 PO; -QUET300T2 PO; -VENL-67 PO; -ZOLPIDEM TARTRATE 10 MG TABLET PO PRN
[2016-10-17 20:42] LABS: BASOPHILS # (AUTO) 0.07 K/uL (0.00-0.20); BASOPHILS % (AUTO) 0.7 % (0.0-2.0); EOSINOPHILS # (AUTO) 0.31 K/uL (0.00-0.70); EOSINOPHILS % (AUTO) 3.07 % (1.0-6.0); HEMATOCRIT 42.2 % (41-53); HEMOGLOBIN 13.7 g/dL (13.5-17.5); LYMPHOCYTES # (AUTO) 2.7 K/uL (1.0-4.8); LYMPHOCYTES % (AUTO) 26.8 % (22.0-44.0); MEAN CORPUSCULAR HEMOGLOBIN 28.6 pg (26.0-34.0); MEAN CORPUSCULAR HGB CONC 32.5 G/dL (31.0-37.0); MEAN CORPUSCULAR VOLUME 88 fL (80-100); MONOCYTES # (AUTO) 0.6 K/uL (0.1-1.0); MONOCYTES % (AUTO) 6.1 % (2.0-9.0); NEUTROPHILS # (AUTO) 6.4 K/uL (1.8-7.7); NEUTROPHILS % (AUTO) 63.3 % (40.0-70.0); PLATELET COUNT (AUTO) 279 K/uL (150-450); RED BLOOD CELL COUNT(AUTO) 4.79 MIL/uL (4.50-5.90); RED CELL DISTRIBUTION WIDTH 14.7 % (11.5-14.5); WHITE BLOOD COUNT (AUTO) 10.1 K/uL (4.5-11.0)
[2016-10-17 21:35] LABS: ANION GAP 6 mmol/L (8-16); CALCIUM, TOTAL 9.1 mg/dL (8.8-10.5); CARBON DIOXIDE 30 mmol/L (22-29); CHLORIDE 103 mmol/L (98-107); CREATININE 1.06 mg/dL (0.60-1.30); GLOMERULAR FILTR. RATE CALC > 60 mL/min (>60); POTASSIUM 3.8 mmol/L (3.5-5.1); SODIUM SERUM 139 mmol/L (136-145); UREA NITROGEN, BLOOD 12 mg/dL (7-18)
[2016-10-17 21:41] LABS: ALANINE AMINOTRANSFERASE 37 U/L (12-78); ALBUMIN 4.1 g/dL (3.4-5.0); ASPARTATE AMINOTRANSFERASE 17 U/L (15-37); BILIRUBIN,TOTAL 0.2 mg/dL (0.1-1.0); TOTAL PROTEIN, SERUM 7.7 g/dL (6.4-8.2)
[2016-10-18] MEDS ORDERED: LORazepam 2 MG TABLET PO ONE (00:15)
[2016-10-18] MEDS ORDERED: HALOPERIDOL 5 MG TABLET PO ONE (00:15)
[2016-10-18 01:00] VITALS: BP 141/85
== END 2016-10-18 01:30 | disposition home or self-care (01) ==
LOC: EMS 20:06
DX: F22 Delusional disorders (principal); R44.0 Auditory hallucinations; F31.9 Bipolar disorder, unspecified; F20.9 Schizophrenia, unspecified; F17.210 Nicotine dependence, cigarettes, uncomplicated; F11.90 Opioid use, unspecified, uncomplicated; F19.90 Other psychoactive substance use, unspecified, uncomplicated
CPT/HCPCS: 36415; 80053; 85025; 99284; 99406; G0480

== ENCOUNTER 2016-10-18 07:45 | Inpatient (IN) | payer MEDICAID, OTHER ==
[~2016-10-18] VITALS: Ht 177.8 cm; Wt 118.5 kg
[2016-10-18 10:01] LABS: BASOPHILS % (AUTO) 0.4 % (0.0-2.0); EOSINOPHILS % (AUTO) 4.5 % (1.0-6.0); HEMATOCRIT 42.3 % (41-53); HEMOGLOBIN 13.5 g/dL (13.5-17.5); LYMPHOCYTES # (AUTO) 2.7 K/uL (1.0-4.8); LYMPHOCYTES % (AUTO) 29.2 % (22.0-44.0); MEAN CORPUSCULAR HGB CONC 32.1 G/dL (31.0-37.0); MEAN CORPUSCULAR VOLUME 87 fL (80-100); MONOCYTES # (AUTO) 0.8 K/uL (0.1-1.0); MONOCYTES % (AUTO) 8.5 % (2.0-9.0); NEUTROPHILS # (AUTO) 5.2 K/uL (1.8-7.7); NEUTROPHILS % (AUTO) 57.4 % (40.0-70.0); PLATELET COUNT (AUTO) 285 K/uL (150-450); RED BLOOD CELL COUNT(AUTO) 4.84 MIL/uL (4.50-5.90); RED CELL DISTRIBUTION WIDTH 14.7 % (11.5-14.5); WHITE BLOOD COUNT (AUTO) 9.1 K/uL (4.5-11.0)
[2016-10-18 10:14] LABS: ALANINE AMINOTRANSFERASE 36 U/L (12-78); ALBUMIN 3.9 g/dL (3.4-5.0); ANION GAP -5 mmol/L (8-16); ASPARTATE AMINOTRANSFERASE 16 U/L (15-37); BILIRUBIN,TOTAL 0.2 mg/dL (0.1-1.0); CALCIUM, TOTAL 9.2 mg/dL (8.8-10.5); CARBON DIOXIDE 31 mmol/L (22-29); CHLORIDE 98 mmol/L (98-107); CREATININE 0.84 mg/dL (0.60-1.30); GLOMERULAR FILTR. RATE CALC > 60 mL/min (>60); POTASSIUM 3.8 mmol/L (3.5-5.1); TOTAL PROTEIN, SERUM 7.5 g/dL (6.4-8.2); UREA NITROGEN, BLOOD 11 mg/dL (7-18)
[2016-10-18 10:17] LABS: SODIUM SERUM 124 mmol/L (136-145)
[2016-10-18 10:41] LABS: ANION GAP 4 mmol/L (8-16); CARBON DIOXIDE 31 mmol/L (22-29); CHLORIDE 98 mmol/L (98-107); CREATININE 0.82 mg/dL (0.60-1.30); GLOMERULAR FILTR. RATE CALC > 60 mL/min (>60); SODIUM SERUM 133 mmol/L (136-145); UREA NITROGEN, BLOOD 11 mg/dL (7-18)
[2016-10-18] MEDS ORDERED: HALOPERIDOL 5 MG TABLET PO ONE (11:00)
[2016-10-18] MEDS ORDERED: ZOLPIDEM TARTRATE 10 MG TABLET PO PRN (11:30)
[2016-10-18 12:20] VITALS: BP 116/67
[2016-10-18 18:51] VITALS: BP 112/72
[2016-10-19 08:30] VITALS: BP 122/64
[2016-10-19] MEDS: LORazepam 2 MG TABLET PO PRN ×2 (11:31→20:28)
[2016-10-19] MEDS: HALOPERIDOL 5 MG TABLET PO PRN (16:14)
[2016-10-19] MEDS: DIVALPROEX SODIUM 500 MG DR TABLET PO SCH (16:14)
[2016-10-19 17:32] VITALS: BP 100/66
[2016-10-20] MEDS: DIVALPROEX SODIUM 500 MG DR TABLET PO SCH ×2 (09:07→16:26)
[2016-10-20 09:29] VITALS: BP 120/73
[2016-10-20] MEDS: HALOPERIDOL 5 MG TABLET PO PRN (10:52)
[2016-10-20] MEDS: LORazepam 2 MG TABLET PO PRN ×2 (10:52→16:25)
[2016-10-20 16:00] VITALS: BP 132/64
[2016-10-21 06:50] LABS: ANION GAP 8 mmol/L (8-16); CALCIUM, TOTAL 9.1 mg/dL (8.8-10.5); CARBON DIOXIDE 27 mmol/L (22-29); CHLORIDE 102 mmol/L (98-107); CREATININE 0.82 mg/dL (0.60-1.30); GLOMERULAR FILTR. RATE CALC > 60 mL/min (>60); POTASSIUM 4.6 mmol/L (3.5-5.1); SODIUM SERUM 137 mmol/L (136-145); UREA NITROGEN, BLOOD 17 mg/dL (7-18)
[2016-10-21] MEDS: DIVALPROEX SODIUM 500 MG DR TABLET PO SCH ×2 (08:56→16:02)
[2016-10-21 09:00] VITALS: BP 111/75
[2016-10-21] MEDS: LORazepam 2 MG TABLET PO PRN ×2 (12:19→16:03)
[2016-10-21] MEDS: HALOPERIDOL 5 MG TABLET PO PRN (16:02)
[2016-10-21 18:00] VITALS: BP 119/67
[2016-10-22] MEDS ORDERED: DIVA250T4 PO (00:14)
[2016-10-22 06:18] VITALS: BP 140/71
[2016-10-22] MEDS: DIVALPROEX SODIUM 500 MG DR TABLET PO SCH (08:10)
[2016-10-22 08:46] VITALS: BP 110/59
== END 2016-10-22 09:00 | disposition home or self-care (01) | DRG 750 ==
LOC: EMS 07:51 → 3EI 11:50
PROVIDERS: ADMIT Psychiatry & Neurology Child & Adolescent Psychiatry; ATTEND Psychiatry & Neurology Child & Adolescent Psychiatry
DX: F25.0 Schizoaffective disorder, bipolar type (principal); E87.1 Hypo-osmolality and hyponatremia; F19.10 Other psychoactive substance abuse, uncomplicated; E78.5 Hyperlipidemia, unspecified
CPT/HCPCS: 87081; 99285; G0480

== ENCOUNTER 2016-11-21 06:04 | Emergency (ER) | payer MEDICAID, OTHER ==
[~2016-11-21] VITALS: Ht 175.3 cm; Wt 125.5 kg
[~2016-11-21 06:04] MED LIST changes: +DIVA250T4 PO; -DIVA500T35 PO
[2016-11-21] MEDS ORDERED: HALDOL DECANOATE IM (06:11)
[2016-11-21 06:53] LABS: BASOPHILS % (AUTO) 0.3 % (0.0-2.0); EOSINOPHILS % (AUTO) 1.4 % (1.0-6.0); HEMATOCRIT 42.7 % (41-53); HEMOGLOBIN 14.3 g/dL (13.5-17.5); LYMPHOCYTES # (AUTO) 2.4 K/uL (1.0-4.8); LYMPHOCYTES % (AUTO) 22.8 % (22.0-44.0); MEAN CORPUSCULAR HEMOGLOBIN 29.2 pg (26.0-34.0); MEAN CORPUSCULAR HGB CONC 33.5 G/dL (31.0-37.0); MEAN CORPUSCULAR VOLUME 87 fL (80-100); MONOCYTES # (AUTO) 0.9 K/uL (0.1-1.0); MONOCYTES % (AUTO) 8.4 % (2.0-9.0); NEUTROPHILS # (AUTO) 6.9 K/uL (1.8-7.7); NEUTROPHILS % (AUTO) 67.1 % (40.0-70.0); PLATELET COUNT (AUTO) 284 K/uL (150-450); RED CELL DISTRIBUTION WIDTH 14.7 % (11.5-14.5); WHITE BLOOD COUNT (AUTO) 10.4 K/uL (4.5-11.0)
[2016-11-21 07:09] LABS: ANION GAP 10 mmol/L (8-16); CALCIUM, TOTAL 9.4 mg/dL (8.8-10.5); CARBON DIOXIDE 27 mmol/L (22-29); CHLORIDE 104 mmol/L (98-107); CREATININE 0.91 mg/dL (0.60-1.30); GLOMERULAR FILTR. RATE CALC > 60 mL/min (>60); POTASSIUM 3.8 mmol/L (3.5-5.1); SODIUM SERUM 141 mmol/L (136-145); UREA NITROGEN, BLOOD 8 mg/dL (7-18)
[2016-11-21 07:21] LABS: ALANINE AMINOTRANSFERASE 45 U/L (12-78); ALBUMIN 4.1 g/dL (3.4-5.0); ASPARTATE AMINOTRANSFERASE 37 U/L (15-37); BILIRUBIN,TOTAL 0.5 mg/dL (0.1-1.0); TOTAL PROTEIN, SERUM 7.7 g/dL (6.4-8.2)
[2016-11-21] MEDS ORDERED: QUEtiapine FUMARATE 50 MG ER TABLET PO ONE (10:30)
[2016-11-21 12:40] VITALS: BP 127/74
== END 2016-11-21 12:45 | disposition home or self-care (01) ==
LOC: EMS 06:06
DX: F25.9 Schizoaffective disorder, unspecified (principal); F41.9 Anxiety disorder, unspecified; F31.9 Bipolar disorder, unspecified; F17.210 Nicotine dependence, cigarettes, uncomplicated; F12.90 Cannabis use, unspecified, uncomplicated
CPT/HCPCS: 36415; 80053; 80307; 85025; 99284; G0480

== ENCOUNTER 2017-01-12 07:49 | Emergency (ER) | payer OTHER ==
[~2017-01-12] VITALS: Ht 175.3 cm; Wt 116.4 kg
[~2017-01-12 07:49] MED LIST changes: -DIVA250T4 PO; +HALDOL DECANOATE IM
[2017-01-12] MEDS ORDERED: GABA-529 PO (07:53)
[2017-01-12] MEDS ORDERED: QUET25TA PO (07:53)
[2017-01-12] MEDS ORDERED: VENL25TA47 PO (07:53)
[2017-01-12 09:20] VITALS: BP 147/102
[2017-01-12] MEDS ORDERED: QUEtiapine FUMARATE 50 MG ER TABLET PO ONE (09:30)
== END 2017-01-12 09:32 | disposition home or self-care (01) ==
LOC: EMS 07:52
DX: F20.9 Schizophrenia, unspecified (principal); F31.9 Bipolar disorder, unspecified; F41.9 Anxiety disorder, unspecified; F12.90 Cannabis use, unspecified, uncomplicated; F17.210 Nicotine dependence, cigarettes, uncomplicated
CPT/HCPCS: 99284

== ENCOUNTER 2017-01-20 20:13 | Inpatient (IN) | payer MEDICAID, OTHER ==
[~2017-01-20] VITALS: Ht 175.3 cm; Wt 107.0 kg
[~2017-01-20 20:13] MED LIST changes: +GABA-529 PO; -HALDOL DECANOATE IM; +QUET25TA PO; +VENL25TA47 PO
[2017-01-20 20:44] LABS: BASOPHILS # (AUTO) 0.08 K/uL (0.00-0.20); BASOPHILS % (AUTO) 0.9 % (0.0-2.0); EOSINOPHILS # (AUTO) 0.18 K/uL (0.00-0.70); EOSINOPHILS % (AUTO) 1.87 % (1.0-6.0); HEMOGLOBIN 13.8 g/dL (13.5-17.5); LYMPHOCYTES # (AUTO) 2.5 K/uL (1.0-4.8); LYMPHOCYTES % (AUTO) 27.1 % (22.0-44.0); MEAN CORPUSCULAR HEMOGLOBIN 29.7 pg (26.0-34.0); MEAN CORPUSCULAR HGB CONC 32.9 G/dL (31.0-37.0); MEAN CORPUSCULAR VOLUME 90 fL (80-100); MONOCYTES # (AUTO) 0.7 K/uL (0.1-1.0); MONOCYTES % (AUTO) 7.4 % (2.0-9.0); NEUTROPHILS # (AUTO) 5.9 K/uL (1.8-7.7); NEUTROPHILS % (AUTO) 62.8 % (40.0-70.0); PLATELET COUNT (AUTO) 252 K/uL (150-450); RED BLOOD CELL COUNT(AUTO) 4.64 MIL/uL (4.50-5.90); WHITE BLOOD COUNT (AUTO) 9.4 K/uL (4.5-11.0)
[2017-01-20 20:55] LABS: ANION GAP 12 mmol/L (8-16); CARBON DIOXIDE 26 mmol/L (22-29); CHLORIDE 102 mmol/L (98-107); CREATININE 0.87 mg/dL (0.60-1.30); GLOMERULAR FILTR. RATE CALC > 60 mL/min (>60); POTASSIUM 3.5 mmol/L (3.5-5.1); SODIUM SERUM 140 mmol/L (136-145); UREA NITROGEN, BLOOD 11 mg/dL (7-18)
[2017-01-20 21:16] LABS: ALANINE AMINOTRANSFERASE 40 U/L (12-78); ALBUMIN 3.8 g/dL (3.4-5.0); ASPARTATE AMINOTRANSFERASE 18 U/L (15-37); BILIRUBIN,TOTAL 0.2 mg/dL (0.1-1.0); TOTAL PROTEIN, SERUM 7.3 g/dL (6.4-8.2)
[2017-01-20 21:36] LABS: SALICYLATE 1.4 mg/dL (2.8-20.0)
[2017-01-20 21:42] LABS: ACETAMINOPHEN 1 mcg/mL (10-30)
[2017-01-20] MEDS ORDERED: ONDANSETRON HCL 4 MG/2 ML VIAL IVP ONE (21:45)
[2017-01-20] MEDS ORDERED: ONDANSETRON HCL 4 MG TABLET PO ONE (22:00)
[2017-01-21] MEDS ORDERED: HALOPERIDOL 5 MG TABLET PO PRN (02:00)
[2017-01-21] MEDS ORDERED: ZOLPIDEM TARTRATE 10 MG TABLET PO PRN (02:00)
[2017-01-21 02:04] VITALS: BP 133/65
[2017-01-21 02:10] VITALS: BP 128/79
[2017-01-21 02:11] VITALS: BP 128/79
[2017-01-21] MEDS: DIVALPROEX SODIUM 500 MG DR TABLET PO SCH ×2 (12:00→22:03)
[2017-01-21] MEDS: LITHIUM CARBONATE 300 MG CAPSULE PO SCH ×2 (12:33→22:03)
[2017-01-21] MEDS: VENLAFAXINE HCL 75 MG ER CAPSULE PO SCH (12:33)
[2017-01-21 13:19] VITALS: BP 108/61
[2017-01-22] MEDS: DIVALPROEX SODIUM 500 MG DR TABLET PO SCH ×2 (08:11→16:59)
[2017-01-22] MEDS: VENLAFAXINE HCL 75 MG ER CAPSULE PO SCH (08:11)
[2017-01-22] MEDS: LITHIUM CARBONATE 300 MG CAPSULE PO SCH ×2 (08:11→16:59)
[2017-01-22] MEDS: ATORVASTATIN CALCIUM 40 MG TABLET PO SCH (08:12)
[2017-01-22 08:20] VITALS: BP 129/63
[2017-01-22 16:21] VITALS: BP 123/61
[2017-01-22] MEDS: LORazepam 2 MG TABLET PO PRN (16:59)
[2017-01-23] VITALS (8 sets, daily range): BP systolic 103–134; BP diastolic 62–93
[2017-01-23] MEDS: DIVALPROEX SODIUM 500 MG DR TABLET PO SCH ×2 (09:00→16:03)
[2017-01-23] MEDS: ATORVASTATIN CALCIUM 40 MG TABLET PO SCH (09:42)
[2017-01-23] MEDS: VENLAFAXINE HCL 75 MG ER CAPSULE PO SCH (09:42)
[2017-01-23] MEDS: LITHIUM CARBONATE 300 MG CAPSULE PO SCH ×2 (09:42→16:03)
[2017-01-23] MEDS: LORazepam 2 MG TABLET PO PRN ×2 (09:42→16:03)
[2017-01-23] MEDS ORDERED: IBUPROFEN 600 MG TABLET PO PRN (16:15)
[2017-01-23] MEDS ORDERED: PROMETHAZINE HCL 25 MG/ML VIAL IM PRN (16:15)
[2017-01-23] MEDS ORDERED: MAG HYDROX/AL HYDROX/SIMETH ES 30 ML SUSPENSION UDCUP PO PRN (16:15)
[2017-01-24] VITALS: BP 125/86
[2017-01-24] MEDS: LORazepam 2 MG TABLET PO PRN ×3 (00:36→16:15)
[2017-01-24 04:00] VITALS: BP 106/65
[2017-01-24 08:00] VITALS: BP 132/62
[2017-01-24 08:02] VITALS: BP_SYST 132; BP_SYST 71; BP_DIAS 62
[2017-01-24] MEDS: ATORVASTATIN CALCIUM 40 MG TABLET PO SCH (08:41)
[2017-01-24] MEDS: LITHIUM CARBONATE 300 MG CAPSULE PO SCH ×2 (08:41→16:12)
[2017-01-24] MEDS: VENLAFAXINE HCL 75 MG ER CAPSULE PO SCH (08:41)
[2017-01-24] MEDS: DIVALPROEX SODIUM 500 MG DR TABLET PO SCH ×2 (08:41→16:12)
[2017-01-24 13:00] VITALS: BP 119/72
[2017-01-24 17:52] VITALS: BP 115/68
[2017-01-25 01:15] VITALS: BP 108/79
[2017-01-25 06:19] VITALS: BP 108/79
[2017-01-25 08:30] VITALS: BP 123/56
[2017-01-25] MEDS: VENLAFAXINE HCL 75 MG ER CAPSULE PO SCH (09:27)
[2017-01-25] MEDS: ATORVASTATIN CALCIUM 40 MG TABLET PO SCH (09:27)
[2017-01-25] MEDS: DIVALPROEX SODIUM 500 MG DR TABLET PO SCH (09:28)
[2017-01-25] MEDS: LITHIUM CARBONATE 300 MG CAPSULE PO SCH (09:28)
[2017-01-25] MEDS ORDERED: DIVA500T35 PO (10:41)
[2017-01-25] MEDS ORDERED: VENL-67 PO (10:41)
[2017-01-25] MEDS ORDERED: LITH300C3 PO (10:41)
[2017-01-25] MEDS ORDERED: ATOR40TA28 PO (10:41)
== END 2017-01-25 11:45 | disposition home or self-care (01) | DRG 750 ==
LOC: EMS 20:14 → 3EI 23:30 → AHU 01-21 01:09 → B2S 01-22 14:49
DX: F25.1 Schizoaffective disorder, depressive type (principal); Z59.0 Homelessness; E78.5 Hyperlipidemia, unspecified; F12.90 Cannabis use, unspecified, uncomplicated; F31.9 Bipolar disorder, unspecified; T50.902A Poisoning by unspecified drugs, medicaments and biological substances, intentional self-harm, initial encounter; Z79.899 Other long term (current) drug therapy; Z87.891 Personal history of nicotine dependence; Z91.5 Personal history of self-harm
CPT/HCPCS: 93005; 99285; G0480; G0481; J2405; Q0162

== ENCOUNTER 2017-06-16 17:21 | Inpatient (IN) | payer MEDICAID, OTHER ==
[~2017-06-16] VITALS: Ht 175.3 cm; Wt 100.2 kg
[~2017-06-16 17:21] MED LIST changes: +ATOR40TA28 PO; +DIVA500T35 PO; -GABA-529 PO; +LITH300C3 PO; -QUET25TA PO; +VENL-67 PO; -VENL25TA47 PO
[2017-06-16 18:02] LABS: BASOPHILS % (AUTO) 0.5 % (0.0-2.0); HEMATOCRIT 39.3 % (41-53); HEMOGLOBIN 13.3 g/dL (13.5-17.5); LYMPHOCYTES # (AUTO) 2.1 K/uL (1.0-4.8); LYMPHOCYTES % (AUTO) 26.3 % (22.0-44.0); MEAN CORPUSCULAR HEMOGLOBIN 29.8 pg (26.0-34.0); MEAN CORPUSCULAR HGB CONC 33.8 G/dL (31.0-37.0); MEAN CORPUSCULAR VOLUME 88 fL (80-100); MONOCYTES # (AUTO) 0.9 K/uL (0.1-1.0); MONOCYTES % (AUTO) 10.7 % (2.0-9.0); NEUTROPHILS % (AUTO) 61.5 % (40.0-70.0); PLATELET COUNT (AUTO) 278 K/uL (150-450); RED BLOOD CELL COUNT(AUTO) 4.45 MIL/uL (4.50-5.90)
[2017-06-16 18:08] LABS: AMPHET/METH SCREEN,URINE POSITIVE (NEGATIVE); BARBITURATE SCREEN, URINE NEGATIVE (NEGATIVE); BENZODIAZEPINES SCREEN,URINE NEGATIVE (NEGATIVE); CANNABINOID SCREEN,URINE NEGATIVE (NEGATIVE); COCAINE SCREEN,URINE NEGATIVE (NEGATIVE); METHADONE SCREEN, URINE NEGATIVE (NEGATIVE); OPIATE SCREEN,URINE NEGATIVE (NEGATIVE)
[2017-06-16 18:09] LABS: PHENCYCLIDINE SCREEN,URINE NEGATIVE (NEGATIVE)
[2017-06-16 18:11] LABS: ANION GAP 11 mmol/L (8-16); CALCIUM, TOTAL 9.2 mg/dL (8.8-10.5); CARBON DIOXIDE 26 mmol/L (22-29); CHLORIDE 101 mmol/L (98-107); CREATININE 0.99 mg/dL (0.60-1.30); GLOMERULAR FILTR. RATE CALC > 60 mL/min (>60); GLUCOSE,RANDOM 85 mg/dL (70-110); POTASSIUM 3.3 mmol/L (3.5-5.1); SODIUM SERUM 138 mmol/L (136-145); UREA NITROGEN, BLOOD 15 mg/dL (7-18)
[2017-06-16 18:17] LABS: ALANINE AMINOTRANSFERASE 38 U/L (12-78); ALKALINE PHOSPHATASE 142 U/L (46-116); ASPARTATE AMINOTRANSFERASE 23 U/L (15-37); BILIRUBIN,TOTAL 0.4 mg/dL (0.1-1.0)
[2017-06-16] MEDS ORDERED: DiphenhydrAMINE HCL 50 MG CAPSULE PO ONE (19:15)
[2017-06-16] MEDS ORDERED: HALOPERIDOL 5 MG TABLET PO ONE (19:15)
[2017-06-16] MEDS ORDERED: HALOPERIDOL 5 MG TABLET PO PRN (19:45)
[2017-06-16] MEDS ORDERED: ZOLPIDEM TARTRATE 10 MG TABLET PO PRN (19:45)
[2017-06-16] MEDS ORDERED: POTASSIUM CHLORIDE 20 MEQ ER TABLET PO ONE (20:30)
[2017-06-16 21:58] VITALS: BP 124/74
[2017-06-16] MEDS ORDERED: PNEUMOCOCCAL VACCINE POLYVALENT 0.5 ML VIAL [PPSV23] IM ONE (22:00)
[2017-06-17 00:58] VITALS: BP 104/56
[2017-06-17] MEDS ORDERED: INFLUENZA VIRUS VACCINE QVS 2017-18 (3YR+)/PF 60 MCG/0.5 ML SYRINGE IM ONE (05:00)
[2017-06-17] MEDS ORDERED: IBUPROFEN 600 MG TABLET PO PRN (07:15)
[2017-06-17] MEDS ORDERED: MAG HYDROX/AL HYDROX/SIMETH ES 30 ML SUSPENSION UDCUP PO PRN (07:15)
[2017-06-17] MEDS ORDERED: MAGNESIUM HYDROXIDE SUSPENSION 30 ML UDCUP PO PRN (07:15)
[2017-06-17] MEDS ORDERED: BACITRACIN 28.4 GM OINTMENT TP PRN (07:15)
[2017-06-17] MEDS ORDERED: ALBUTEROL SULFATE HFA 90 MCG/PUFF 8 GM INHALER IH PRN (07:15)
[2017-06-17] MEDS ORDERED: CloNIDine HCL 0.1 MG TABLET PO PRN (07:15)
[2017-06-17] MEDS ORDERED: BENZOCAINE/MENTHOL LOZENGE MM PRN (07:15)
[2017-06-17] MEDS ORDERED: PETROLATUM,WHITE 71 GM JELLY TP PRN (07:15)
[2017-06-17] MEDS ORDERED: ONDANSETRON HCL 4 MG TABLET PO PRN (07:15)
[2017-06-17] MEDS ORDERED: ACETAMINOPHEN 325 MG TABLET PO PRN (07:15)
[2017-06-17] MEDS ORDERED: LOPERAMIDE HCL 2 MG CAPSULE PO PRN (07:15)
[2017-06-17 08:45] VITALS: BP 117/56
[2017-06-17] MEDS: NICOTINE 21 MG/24 HOUR PATCH TD SCH (08:53)
[2017-06-17 09:16] LABS: CHOL/HDL RATIO 2.8 (4.2-7.3); POTASSIUM 4.2 mmol/L (3.5-5.1)
[2017-06-17] MEDS: LORazepam 2 MG TABLET PO PRN (13:51)
[2017-06-17 14:05] VITALS: BP 109/76
[2017-06-17 16:00] VITALS: BP 122/70
[2017-06-17] MEDS: OLANZapine 5 MG TABLET PO SCH (20:21)
[2017-06-18 06:43] VITALS: BP 110/62
[2017-06-18 08:47] VITALS: BP 107/62
[2017-06-18] MEDS: FLUoxetine HCL 20 MG CAPSULE PO SCH (09:42)
[2017-06-18] MEDS: NICOTINE 21 MG/24 HOUR PATCH TD SCH (09:42)
[2017-06-18] MEDS: LORazepam 2 MG TABLET PO PRN ×2 (10:34→17:17)
[2017-06-18 16:27] VITALS: BP 105/75
[2017-06-18] MEDS: OLANZapine 5 MG TABLET PO SCH (20:53)
[2017-06-19 06:50] VITALS: BP 121/86
[2017-06-19] MEDS: FLUoxetine HCL 20 MG CAPSULE PO SCH (08:57)
[2017-06-19] MEDS: LORazepam 2 MG TABLET PO PRN (08:57)
[2017-06-19] MEDS: NICOTINE 21 MG/24 HOUR PATCH TD SCH (08:58)
[2017-06-19 09:21] VITALS: BP 124/69
[2017-06-19] MEDS ORDERED: OLAN5TAB2 PO (13:33)
[2017-06-19] MEDS ORDERED: FLUO-191 PO (13:34)
== END 2017-06-19 15:00 | disposition home or self-care (01) | DRG 750 ==
LOC: EMS 17:22 → B2S 20:00
PROVIDERS: ADMIT Psychiatry & Neurology Child & Adolescent Psychiatry; ATTEND Psychiatry & Neurology Child & Adolescent Psychiatry
PROC: 3E0234Z Introduction of Serum, Toxoid and Vaccine into Muscle, Percutaneous Approach (ICD-10-PCS; principal; 2017-06-17)
DX: F25.0 Schizoaffective disorder, bipolar type (principal); R45.851 Suicidal ideations; Z91.19 Patient's noncompliance with other medical treatment and regimen; Z59.0 Homelessness; F15.10 Other stimulant abuse, uncomplicated; E78.5 Hyperlipidemia, unspecified; Z23 Encounter for immunization; E87.6 Hypokalemia; F12.90 Cannabis use, unspecified, uncomplicated; F17.200 Nicotine dependence, unspecified, uncomplicated; F41.9 Anxiety disorder, unspecified; G47.00 Insomnia, unspecified; Z56.0 Unemployment, unspecified; Z71.41 Alcohol abuse counseling and surveillance of alcoholic; Z71.6 Tobacco abuse counseling; Z72.89 Other problems related to lifestyle
CPT/HCPCS: 84132; 90471; 99285; G0480

== ENCOUNTER 2017-07-08 11:46 | Inpatient (IN) | payer MEDICAID, OTHER ==
[~2017-07-08] VITALS: Ht 175.3 cm; Wt 62.0 kg
[~2017-07-08 11:46] MED LIST changes: -ATOR40TA28 PO; -DIVA500T35 PO; +FLUO-191 PO; -LITH300C3 PO; +OLAN5TAB2 PO; -VENL-67 PO
[2017-07-08 12:40] LABS: BASOPHILS % (AUTO) 0.5 % (0.0-2.0); EOSINOPHILS % (AUTO) 1.1 % (1.0-6.0); HEMATOCRIT 43.6 % (41-53); HEMOGLOBIN 14.6 g/dL (13.5-17.5); LYMPHOCYTES # (AUTO) 2.1 K/uL (1.0-4.8); LYMPHOCYTES % (AUTO) 19.5 % (22.0-44.0); MEAN CORPUSCULAR HEMOGLOBIN 29.4 pg (26.0-34.0); MEAN CORPUSCULAR HGB CONC 33.5 G/dL (31.0-37.0); MEAN CORPUSCULAR VOLUME 88 fL (80-100); MONOCYTES % (AUTO) 9.2 % (2.0-9.0); NEUTROPHILS # (AUTO) 7.4 K/uL (1.8-7.7); NEUTROPHILS % (AUTO) 69.7 % (40.0-70.0); PLATELET COUNT (AUTO) 376 K/uL (150-450); RED BLOOD CELL COUNT(AUTO) 4.97 MIL/uL (4.50-5.90); RED CELL DISTRIBUTION WIDTH 13.6 % (11.5-14.5)
[2017-07-08 12:47] LABS: ANION GAP 9 mmol/L (8-16); CALCIUM, TOTAL 9.4 mg/dL (8.8-10.5); CARBON DIOXIDE 31 mmol/L (22-29); CHLORIDE 101 mmol/L (98-107); CREATININE 0.78 mg/dL (0.60-1.30); GLOMERULAR FILTR. RATE CALC > 60 mL/min (>60); GLUCOSE,RANDOM 77 mg/dL (70-110); SODIUM SERUM 141 mmol/L (136-145); UREA NITROGEN, BLOOD 8 mg/dL (7-18)
[2017-07-08 12:50] LABS: ALANINE AMINOTRANSFERASE 38 U/L (12-78); ALBUMIN 3.9 g/dL (3.4-5.0); ALKALINE PHOSPHATASE 157 U/L (46-116); ASPARTATE AMINOTRANSFERASE 18 U/L (15-37); BILIRUBIN,TOTAL 0.2 mg/dL (0.1-1.0); TOTAL PROTEIN, SERUM 7.8 g/dL (6.4-8.2)
[2017-07-08] MEDS ORDERED: HALOPERIDOL 5 MG TABLET PO ONE (16:00)
[2017-07-08] MEDS ORDERED: DiphenhydrAMINE HCL 50 MG CAPSULE PO ONE (16:00)
[2017-07-08] MEDS ORDERED: LORazepam 2 MG TABLET PO ONE (16:00)
[2017-07-08 16:43] LABS: AMPHET/METH SCREEN,URINE NEGATIVE (NEGATIVE); BARBITURATE SCREEN, URINE NEGATIVE (NEGATIVE); BENZODIAZEPINES SCREEN,URINE NEGATIVE (NEGATIVE); CANNABINOID SCREEN,URINE POSITIVE (NEGATIVE); COCAINE SCREEN,URINE NEGATIVE (NEGATIVE); METHADONE SCREEN, URINE NEGATIVE (NEGATIVE); OPIATE SCREEN,URINE NEGATIVE (NEGATIVE)
[2017-07-08 16:44] LABS: PHENCYCLIDINE SCREEN,URINE NEGATIVE (NEGATIVE)
[2017-07-08] MEDS ORDERED: HALOPERIDOL 5 MG TABLET PO PRN (17:00)
[2017-07-08] MEDS ORDERED: ZOLPIDEM TARTRATE 10 MG TABLET PO PRN (17:00)
[2017-07-08 20:16] VITALS: BP 124/85
[2017-07-09 04:11] VITALS: BP 106/67
[2017-07-09] MEDS: LORazepam 2 MG TABLET PO PRN ×2 (08:14→15:11)
[2017-07-09] MEDS: NICOTINE 14 MG/24 HOUR PATCH TD SCH (08:14)
[2017-07-09 08:21] LABS: BASOPHILS % (AUTO) 0.6 % (0.0-2.0); EOSINOPHILS % (AUTO) 3.4 % (1.0-6.0); HEMATOCRIT 42.4 % (41-53); LYMPHOCYTES # (AUTO) 1.9 K/uL (1.0-4.8); LYMPHOCYTES % (AUTO) 28.4 % (22.0-44.0); MEAN CORPUSCULAR HEMOGLOBIN 29.2 pg (26.0-34.0); MEAN CORPUSCULAR VOLUME 89 fL (80-100); MONOCYTES # (AUTO) 0.8 K/uL (0.1-1.0); MONOCYTES % (AUTO) 12.3 % (2.0-9.0); NEUTROPHILS # (AUTO) 3.7 K/uL (1.8-7.7); NEUTROPHILS % (AUTO) 55.3 % (40.0-70.0); PLATELET COUNT (AUTO) 340 K/uL (150-450); RED BLOOD CELL COUNT(AUTO) 4.78 MIL/uL (4.50-5.90); RED CELL DISTRIBUTION WIDTH 14.2 % (11.5-14.5)
[2017-07-09 08:45] VITALS: BP 115/72
[2017-07-09 08:55] LABS: ALANINE AMINOTRANSFERASE 30 U/L (12-78); ALBUMIN 3.5 g/dL (3.4-5.0); ALKALINE PHOSPHATASE 137 U/L (46-116); ANION GAP 7 mmol/L (8-16); ASPARTATE AMINOTRANSFERASE 13 U/L (15-37); BILIRUBIN,TOTAL 0.3 mg/dL (0.1-1.0); CARBON DIOXIDE 30 mmol/L (22-29); CHLORIDE 105 mmol/L (98-107); CREATININE 0.76 mg/dL (0.60-1.30); FREE T4 (FREE THYROXINE) 1.14 ng/dL (0.76-1.46); GLOMERULAR FILTR. RATE CALC > 60 mL/min (>60); GLUCOSE,RANDOM 76 mg/dL (70-110); POTASSIUM 4.5 mmol/L (3.5-5.1); SODIUM SERUM 142 mmol/L (136-145); THYROID STIMULATING HORMONE 0.35 uIU/mL (0.36-3.74); TOTAL PROTEIN, SERUM 6.9 g/dL (6.4-8.2); UREA NITROGEN, BLOOD 10 mg/dL (7-18)
[2017-07-09] MEDS ORDERED: LOPERAMIDE HCL 2 MG CAPSULE PO PRN ×2 (09:00→12:45)
[2017-07-09] MEDS ORDERED: BACITRACIN 28.4 GM OINTMENT TP PRN ×2 (09:00→12:45)
[2017-07-09] MEDS ORDERED: ALBUTEROL SULFATE HFA 90 MCG/PUFF 8 GM INHALER IH PRN ×2 (09:00→12:45)
[2017-07-09] MEDS ORDERED: PETROLATUM,WHITE 71 GM JELLY TP PRN ×2 (09:00→12:45)
[2017-07-09] MEDS ORDERED: ACETAMINOPHEN 325 MG TABLET PO PRN ×2 (09:00→12:45)
[2017-07-09] MEDS ORDERED: BENZOCAINE/MENTHOL LOZENGE MM PRN ×2 (09:00→12:45)
[2017-07-09] MEDS ORDERED: CloNIDine HCL 0.1 MG TABLET PO PRN ×2 (09:00→12:45)
[2017-07-09] MEDS ORDERED: MAGNESIUM HYDROXIDE SUSPENSION 30 ML UDCUP PO PRN ×2 (09:00→12:45)
[2017-07-09] MEDS ORDERED: ONDANSETRON HCL 4 MG TABLET PO PRN ×2 (09:00→12:45)
[2017-07-09] MEDS ORDERED: IBUPROFEN 600 MG TABLET PO PRN ×2 (09:00→12:45)
[2017-07-09] MEDS: FLUoxetine HCL 20 MG CAPSULE PO SCH (10:44)
[2017-07-09] MEDS ORDERED: MAG HYDROX/AL HYDROX/SIMETH ES 30 ML SUSPENSION UDCUP PO PRN (12:45)
[2017-07-09] MEDS: MAG HYDROX/AL HYDROX/SIMETH ES 30 ML SUSPENSION UDCUP PO PRN (14:47)
[2017-07-09 16:39] VITALS: BP 119/63
[2017-07-09] MEDS: OLANZapine 5 MG TABLET PO SCH (20:12)
[2017-07-09] MEDS ORDERED: OLANZapine 5 MG TABLET PO SCH (21:00)
[2017-07-10 02:14] VITALS: BP 108/60
[2017-07-10 08:42] VITALS: BP 123/60
[2017-07-10] MEDS: OLANZapine 5 MG TABLET PO SCH ×2 (08:47→20:16)
[2017-07-10] MEDS: FLUoxetine HCL 20 MG CAPSULE PO SCH (08:47)
[2017-07-10] MEDS: DOCUSATE SODIUM 100 MG CAPSULE PO SCH (08:47)
[2017-07-10] MEDS: NICOTINE 14 MG/24 HOUR PATCH TD SCH (08:47)
[2017-07-10] MEDS: LORazepam 2 MG TABLET PO PRN ×3 (12:55→22:07)
[2017-07-10 16:10] VITALS: BP 114/69
[2017-07-10] MEDS ORDERED: OLAN5TAB2 PO (22:50)
[2017-07-10] MEDS ORDERED: FLUO-191 PO (22:50)
[2017-07-11 01:36] VITALS: BP 104/61
[2017-07-11 08:14] VITALS: BP 110/71
[2017-07-11] MEDS: FLUoxetine HCL 20 MG CAPSULE PO SCH (08:32)
[2017-07-11] MEDS: DOCUSATE SODIUM 100 MG CAPSULE PO SCH (08:32)
[2017-07-11] MEDS: LORazepam 2 MG TABLET PO PRN ×3 (08:32→16:56)
[2017-07-11] MEDS: OLANZapine 5 MG TABLET PO SCH ×2 (08:32→20:47)
[2017-07-11] MEDS: NICOTINE 14 MG/24 HOUR PATCH TD SCH (08:32)
[2017-07-11] MEDS: MAG HYDROX/AL HYDROX/SIMETH ES 30 ML SUSPENSION UDCUP PO PRN (15:52)
[2017-07-11 16:30] VITALS: BP 129/67
[2017-07-12 01:26] VITALS: BP 121/68
[2017-07-12] MEDS: LORazepam 2 MG TABLET PO PRN (07:39)
[2017-07-12] MEDS: NICOTINE 14 MG/24 HOUR PATCH TD SCH (08:29)
[2017-07-12] MEDS: FLUoxetine HCL 20 MG CAPSULE PO SCH (08:29)
[2017-07-12] MEDS: OLANZapine 5 MG TABLET PO SCH (08:30)
[2017-07-12] MEDS: DOCUSATE SODIUM 100 MG CAPSULE PO SCH (08:30)
[2017-07-12 08:41] VITALS: BP 122/68
== END 2017-07-12 09:10 | disposition home or self-care (01) | DRG 750 ==
LOC: EMS 11:47 → B2S 17:25
PROVIDERS: ADMIT Psychiatry & Neurology Child & Adolescent Psychiatry; ATTEND Psychiatry & Neurology Child & Adolescent Psychiatry
DX: F20.0 Paranoid schizophrenia (principal); R45.851 Suicidal ideations; G47.00 Insomnia, unspecified; F12.90 Cannabis use, unspecified, uncomplicated; F15.10 Other stimulant abuse, uncomplicated; F17.210 Nicotine dependence, cigarettes, uncomplicated; Z91.5 Personal history of self-harm; F32.9 Major depressive disorder, single episode, unspecified; R03.0 Elevated blood-pressure reading, without diagnosis of hypertension; Z71.51 Drug abuse counseling and surveillance of drug abuser; Z71.6 Tobacco abuse counseling
CPT/HCPCS: 84439; 84443; 87081; 99285; 99406; G0480

== ENCOUNTER 2017-07-14 14:01 | Emergency (ER) | payer MEDICAID, OTHER ==
[~2017-07-14] VITALS: Ht 175.3 cm; Wt 125.0 kg
[2017-07-14 16:55] LABS: BASOPHILS % (AUTO) 0.3 % (0.0-2.0); HEMATOCRIT 44.2 % (41-53); HEMOGLOBIN 14.6 g/dL (13.5-17.5); LYMPHOCYTES # (AUTO) 2.8 K/uL (1.0-4.8); LYMPHOCYTES % (AUTO) 16.6 % (22.0-44.0); MEAN CORPUSCULAR HEMOGLOBIN 29.2 pg (26.0-34.0); MEAN CORPUSCULAR VOLUME 89 fL (80-100); MONOCYTES # (AUTO) 1.2 K/uL (0.1-1.0); NEUTROPHILS # (AUTO) 12.6 K/uL (1.8-7.7); NEUTROPHILS % (AUTO) 75.1 % (40.0-70.0); PLATELET COUNT (AUTO) 318 K/uL (150-450); RED CELL DISTRIBUTION WIDTH 14.3 % (11.5-14.5)
[2017-07-14 17:14] LABS: ANION GAP 8 mmol/L (8-16); CALCIUM, TOTAL 9.5 mg/dL (8.8-10.5); CARBON DIOXIDE 33 mmol/L (22-29); CHLORIDE 101 mmol/L (98-107); CREATININE 0.81 mg/dL (0.60-1.30); GLOMERULAR FILTR. RATE CALC > 60 mL/min (>60); GLUCOSE,RANDOM 79 mg/dL (70-110); POTASSIUM 4.5 mmol/L (3.5-5.1); SODIUM SERUM 142 mmol/L (136-145); UREA NITROGEN, BLOOD 15 mg/dL (7-18)
[2017-07-14 17:17] LABS: ALANINE AMINOTRANSFERASE 38 U/L (12-78); ALBUMIN 4.2 g/dL (3.4-5.0); ALKALINE PHOSPHATASE 177 U/L (46-116); ASPARTATE AMINOTRANSFERASE 20 U/L (15-37); BILIRUBIN,TOTAL 0.4 mg/dL (0.1-1.0); TOTAL PROTEIN, SERUM 8.2 g/dL (6.4-8.2)
[2017-07-14 19:47] LABS: AMPHET/METH SCREEN,URINE NEGATIVE (NEGATIVE); BARBITURATE SCREEN, URINE NEGATIVE (NEGATIVE); BENZODIAZEPINES SCREEN,URINE NEGATIVE (NEGATIVE); CANNABINOID SCREEN,URINE POSITIVE (NEGATIVE); COCAINE SCREEN,URINE NEGATIVE (NEGATIVE); METHADONE SCREEN, URINE NEGATIVE (NEGATIVE); OPIATE SCREEN,URINE NEGATIVE (NEGATIVE); PHENCYCLIDINE SCREEN,URINE NEGATIVE (NEGATIVE)
[2017-07-14] MEDS ORDERED: HALOPERIDOL 5 MG TABLET PO ONE (21:00)
[2017-07-14] MEDS ORDERED: LORazepam 1 MG TABLET PO ONE (21:00)
[2017-07-14 21:07] VITALS: BP 122/80
== END 2017-07-14 21:24 | disposition home or self-care (01) ==
LOC: EMS 14:02
DX: F25.9 Schizoaffective disorder, unspecified (principal); F41.9 Anxiety disorder, unspecified; F31.9 Bipolar disorder, unspecified; F17.210 Nicotine dependence, cigarettes, uncomplicated; F12.90 Cannabis use, unspecified, uncomplicated; Z71.6 Tobacco abuse counseling; Z79.899 Other long term (current) drug therapy
CPT/HCPCS: 36415; 80053; 80307; 85025; 99284; 99406; G0480

== ENCOUNTER 2017-07-30 16:14 | Inpatient (IN) | payer MEDICAID, OTHER ==
[~2017-07-30] VITALS: Ht 175.3 cm; Wt 95.4 kg
[2017-07-30] MEDS ORDERED: HALOPERIDOL 5 MG TABLET PO PRN (19:15)
[2017-07-30] MEDS ORDERED: ZOLPIDEM TARTRATE 10 MG TABLET PO PRN (19:15)
[2017-07-30] MEDS ORDERED: LORazepam 1 MG TABLET PO ONE (19:45)
[2017-07-30] MEDS ORDERED: OLANZapine 5 MG TABLET PO ONE (19:45)
[2017-07-30] MEDS ORDERED: BACITRACIN 0.9 GM PACKET OINTMENT TP ONE (19:45)
[2017-07-30 20:06] LABS: BASOPHILS % (AUTO) 0.6 % (0.0-2.0); EOSINOPHILS % (AUTO) 1.9 % (1.0-6.0); HEMATOCRIT 41.5 % (41-53); HEMOGLOBIN 13.9 g/dL (13.5-17.5); LYMPHOCYTES # (AUTO) 2.3 K/uL (1.0-4.8); LYMPHOCYTES % (AUTO) 27.6 % (22.0-44.0); MEAN CORPUSCULAR HEMOGLOBIN 29.2 pg (26.0-34.0); MEAN CORPUSCULAR HGB CONC 33.5 G/dL (31.0-37.0); MEAN CORPUSCULAR VOLUME 87 fL (80-100); MONOCYTES # (AUTO) 0.7 K/uL (0.1-1.0); MONOCYTES % (AUTO) 8.8 % (2.0-9.0); NEUTROPHILS # (AUTO) 5.2 K/uL (1.8-7.7); NEUTROPHILS % (AUTO) 61.1 % (40.0-70.0); PLATELET COUNT (AUTO) 290 K/uL (150-450); RED BLOOD CELL COUNT(AUTO) 4.76 MIL/uL (4.50-5.90); RED CELL DISTRIBUTION WIDTH 14.4 % (11.5-14.5)
[2017-07-30 20:24] LABS: ANION GAP 8 mmol/L (8-16); CARBON DIOXIDE 28 mmol/L (22-29); CHLORIDE 105 mmol/L (98-107); CREATININE 0.83 mg/dL (0.60-1.30); GLOMERULAR FILTR. RATE CALC > 60 mL/min (>60); GLUCOSE,RANDOM 103 mg/dL (70-110); POTASSIUM 3.6 mmol/L (3.5-5.1); SODIUM SERUM 141 mmol/L (136-145); UREA NITROGEN, BLOOD 10 mg/dL (7-18)
[2017-07-30 20:29] LABS: ALANINE AMINOTRANSFERASE 32 U/L (12-78); ALBUMIN 3.8 g/dL (3.4-5.0); ALKALINE PHOSPHATASE 141 U/L (46-116); ASPARTATE AMINOTRANSFERASE 20 U/L (15-37); BILIRUBIN,TOTAL 0.4 mg/dL (0.1-1.0); TOTAL PROTEIN, SERUM 7.3 g/dL (6.4-8.2)
[2017-07-30 20:53] LABS: APPEARANCE,URINE CLEAR (CLEAR); GLUCOSE, URINE (UA) NEGATIVE (NEGATIVE); KETONES,URINE NEGATIVE (NEGATIVE); LEUKOCYTE ESTERASE ,URINE NEGATIVE (NEGATIVE); NITRATE,URINE NEGATIVE (NEGATIVE); OCCULT BLOOD,URINE NEGATIVE (NEGATIVE); PH,URINE 5.5 (5.0-8.0); PROTEIN,URINE TRACE (NEGATIVE)
[2017-07-30 20:56] LABS: BILIRUBIN,URINE PRELIM. POSITIVE (NEGATIVE)
[2017-07-30 21:57] VITALS: BP 113/63
[2017-07-30 22:34] LABS: AMPHET/METH SCREEN,URINE POSITIVE (NEGATIVE); BARBITURATE SCREEN, URINE NEGATIVE (NEGATIVE); BENZODIAZEPINES SCREEN,URINE NEGATIVE (NEGATIVE); CANNABINOID SCREEN,URINE POSITIVE (NEGATIVE); COCAINE SCREEN,URINE NEGATIVE (NEGATIVE); METHADONE SCREEN, URINE NEGATIVE (NEGATIVE); OPIATE SCREEN,URINE NEGATIVE (NEGATIVE); PHENCYCLIDINE SCREEN,URINE NEGATIVE (NEGATIVE)
[2017-07-31 03:03] LABS: THYROID STIMULATING HORMONE 0.62 uIU/mL (0.36-3.74)
[2017-07-31 06:17] VITALS: BP 117/65
[2017-07-31] MEDS: LORazepam 2 MG TABLET PO PRN ×2 (08:13→16:07)
[2017-07-31] MEDS: NICOTINE 14 MG/24 HOUR PATCH TD SCH (08:14)
[2017-07-31] MEDS: BACITRACIN 28.4 GM OINTMENT TP SCH (08:14)
[2017-07-31 08:46] VITALS: BP 122/66
[2017-07-31] MEDS: FLUoxetine HCL 20 MG CAPSULE PO SCH (09:52)
[2017-07-31] MEDS ORDERED: ALBUTEROL SULFATE HFA 90 MCG/PUFF 8 GM INHALER IH PRN (10:00)
[2017-07-31] MEDS ORDERED: MAG HYDROX/AL HYDROX/SIMETH ES 30 ML SUSPENSION UDCUP PO PRN (10:00)
[2017-07-31] MEDS ORDERED: MAGNESIUM HYDROXIDE SUSPENSION 30 ML UDCUP PO PRN (10:00)
[2017-07-31] MEDS ORDERED: IBUPROFEN 600 MG TABLET PO PRN (10:00)
[2017-07-31] MEDS ORDERED: ACETAMINOPHEN 325 MG TABLET PO PRN (10:00)
[2017-07-31] MEDS ORDERED: ONDANSETRON HCL 4 MG TABLET PO PRN (10:00)
[2017-07-31] MEDS ORDERED: LOPERAMIDE HCL 2 MG CAPSULE PO PRN (10:00)
[2017-07-31] MEDS ORDERED: BACITRACIN 28.4 GM OINTMENT TP PRN (10:00)
[2017-07-31] MEDS ORDERED: PETROLATUM,WHITE 71 GM JELLY TP PRN (10:00)
[2017-07-31] MEDS ORDERED: BENZOCAINE/MENTHOL LOZENGE MM PRN (10:00)
[2017-07-31] MEDS ORDERED: CloNIDine HCL 0.1 MG TABLET PO PRN (10:00)
[2017-07-31 16:10] VITALS: BP 120/70
[2017-07-31] MEDS: OLANZapine 5 MG TABLET PO SCH (20:26)
[2017-08-01 01:08] VITALS: BP 111/67
[2017-08-01 08:23] VITALS: BP 117/65
[2017-08-01] MEDS: OLANZapine 5 MG TABLET PO SCH ×2 (08:53→21:25)
[2017-08-01] MEDS: FLUoxetine HCL 20 MG CAPSULE PO SCH (08:53)
[2017-08-01] MEDS: NICOTINE 14 MG/24 HOUR PATCH TD SCH (08:54)
[2017-08-01] MEDS: BACITRACIN 28.4 GM OINTMENT TP SCH (08:57)
[2017-08-01] MEDS: LORazepam 2 MG TABLET PO PRN ×2 (16:02→21:29)
[2017-08-01 16:06] VITALS: BP 111/65
[2017-08-02 01:49] VITALS: BP 105/66
[2017-08-02 08:32] VITALS: BP 114/67
[2017-08-02] MEDS: BACITRACIN 28.4 GM OINTMENT TP SCH (08:39)
[2017-08-02] MEDS: FLUoxetine HCL 20 MG CAPSULE PO SCH (08:39)
[2017-08-02] MEDS: NICOTINE 14 MG/24 HOUR PATCH TD SCH (08:39)
[2017-08-02] MEDS: OLANZapine 5 MG TABLET PO SCH ×2 (08:39→20:22)
[2017-08-02] MEDS: LORazepam 2 MG TABLET PO PRN ×2 (09:02→16:01)
[2017-08-02 16:00] VITALS: BP 121/79
[2017-08-03 05:45] VITALS: BP 110/68
[2017-08-03] MEDS: FLUoxetine HCL 20 MG CAPSULE PO SCH (08:14)
[2017-08-03] MEDS: NICOTINE 14 MG/24 HOUR PATCH TD SCH (08:14)
[2017-08-03] MEDS: OLANZapine 5 MG TABLET PO SCH (08:14)
[2017-08-03] MEDS: BACITRACIN 28.4 GM OINTMENT TP SCH (08:15)
[2017-08-03 08:56] VITALS: BP 116/76
== END 2017-08-03 09:50 | disposition home or self-care (01) | DRG 750 ==
LOC: EMS 16:16 → B2S 19:48
PROVIDERS: ATTEND Psychiatry & Neurology Child & Adolescent Psychiatry
DX: F25.1 Schizoaffective disorder, depressive type (principal); R45.851 Suicidal ideations; F15.20 Other stimulant dependence, uncomplicated; F12.20 Cannabis dependence, uncomplicated; F17.200 Nicotine dependence, unspecified, uncomplicated; F41.9 Anxiety disorder, unspecified; G47.00 Insomnia, unspecified; K59.00 Constipation, unspecified; S50.812A Abrasion of left forearm, initial encounter; X58.XXXA Exposure to other specified factors, initial encounter; Y93.89 Activity, other specified; Y92.89 Other specified places as the place of occurrence of the external cause; Y99.8 Other external cause status; Z79.899 Other long term (current) drug therapy; Z91.14 Patient's other noncompliance with medication regimen; Z56.0 Unemployment, unspecified; Z71.6 Tobacco abuse counseling
CPT/HCPCS: 84443; 87081; 99285; G0480

== ENCOUNTER 2017-08-07 15:28 | Inpatient (IN) | payer MEDICAID, OTHER ==
[~2017-08-07] VITALS: Ht 175.3 cm; Wt 95.5 kg
[2017-08-07 16:36] LABS: AMPHET/METH SCREEN,URINE NEGATIVE (NEGATIVE); BARBITURATE SCREEN, URINE NEGATIVE (NEGATIVE); BENZODIAZEPINES SCREEN,URINE NEGATIVE (NEGATIVE); CANNABINOID SCREEN,URINE POSITIVE (NEGATIVE); COCAINE SCREEN,URINE NEGATIVE (NEGATIVE); METHADONE SCREEN, URINE NEGATIVE (NEGATIVE); OPIATE SCREEN,URINE NEGATIVE (NEGATIVE)
[2017-08-07 16:40] LABS: BASOPHILS % (AUTO) 0.5 % (0.0-2.0); EOSINOPHILS % (AUTO) 1.4 % (1.0-6.0); HEMATOCRIT 42.7 % (41-53); HEMOGLOBIN 14.5 g/dL (13.5-17.5); LYMPHOCYTES # (AUTO) 2.4 K/uL (1.0-4.8); LYMPHOCYTES % (AUTO) 32.6 % (22.0-44.0); MEAN CORPUSCULAR HEMOGLOBIN 29.9 pg (26.0-34.0); MEAN CORPUSCULAR HGB CONC 33.9 G/dL (31.0-37.0); MEAN CORPUSCULAR VOLUME 88 fL (80-100); MONOCYTES # (AUTO) 0.6 K/uL (0.1-1.0); NEUTROPHILS # (AUTO) 4.2 K/uL (1.8-7.7); NEUTROPHILS % (AUTO) 57.5 % (40.0-70.0); PLATELET COUNT (AUTO) 308 K/uL (150-450); RED BLOOD CELL COUNT(AUTO) 4.86 MIL/uL (4.50-5.90); RED CELL DISTRIBUTION WIDTH 14.4 % (11.5-14.5)
[2017-08-07 16:43] LABS: PHENCYCLIDINE SCREEN,URINE NEGATIVE (NEGATIVE)
[2017-08-07 16:50] LABS: ANION GAP 12 mmol/L (8-16); CALCIUM, TOTAL 9.3 mg/dL (8.8-10.5); CARBON DIOXIDE 26 mmol/L (22-29); CHLORIDE 104 mmol/L (98-107); CREATININE 1.06 mg/dL (0.60-1.30); GLOMERULAR FILTR. RATE CALC > 60 mL/min (>60); GLUCOSE,RANDOM 78 mg/dL (70-110); POTASSIUM 3.8 mmol/L (3.5-5.1); SODIUM SERUM 142 mmol/L (136-145); UREA NITROGEN, BLOOD 11 mg/dL (7-18)
[2017-08-07 16:57] LABS: ALANINE AMINOTRANSFERASE 36 U/L (12-78); ALBUMIN 4.1 g/dL (3.4-5.0); ALKALINE PHOSPHATASE 136 U/L (46-116); ASPARTATE AMINOTRANSFERASE 20 U/L (15-37); BILIRUBIN,TOTAL 0.4 mg/dL (0.1-1.0); TOTAL PROTEIN, SERUM 7.5 g/dL (6.4-8.2)
[2017-08-07] MEDS ORDERED: LORazepam 2 MG/ML VIAL IM ONE (17:30)
[2017-08-07] MEDS ORDERED: DiphenhydrAMINE HCL 50 MG/ML VIAL IM ONE (17:30)
[2017-08-07] MEDS ORDERED: HALOPERIDOL LACTATE 5 MG/ML VIAL IM ONE (17:30)
[2017-08-07] MEDS ORDERED: ZOLPIDEM TARTRATE 10 MG TABLET PO PRN (18:30)
[2017-08-07] MEDS ORDERED: HALOPERIDOL 5 MG TABLET PO PRN (18:30)
[2017-08-07 19:37] VITALS: BP 126/66
[2017-08-07] MEDS: OLANZapine 5 MG TABLET PO SCH (20:31)
[2017-08-07 21:15] LABS: APPEARANCE,URINE TURBID (CLEAR); GLUCOSE, URINE (UA) NEGATIVE (NEGATIVE); KETONES,URINE TRACE mg/dL (NEGATIVE); LEUKOCYTE ESTERASE ,URINE NEGATIVE (NEGATIVE); NITRATE,URINE NEGATIVE (NEGATIVE); OCCULT BLOOD,URINE NEGATIVE (NEGATIVE); PROTEIN,URINE POS 1+ (NEGATIVE); UROBILINOGEN,URINE 0.2 mg/dL (<=1.0)
[2017-08-07 21:19] LABS: BILIRUBIN,URINE PRELIM. POSITIVE (NEGATIVE)
[2017-08-07 21:37] LABS: BACTERIA,URINE Few /HPF (None Seen); RBC,URINE None Seen /HPF (0-2); WBC,URINE None Seen /HPF (0-5)
[2017-08-07 21:38] LABS: AMORPHOUS SEDIMENT,UR Many /LPF (None Seen); CALCIUM OXALATE CRYSTALS,UR Few /LPF (None Seen); SQUAMOUS EPITHELIAL CELL,UR None Seen /LPF (None Seen)
[2017-08-08 06:39] LABS: CHOL/HDL RATIO 2.5 (4.2-7.3)
[2017-08-08] MEDS ORDERED: MAG HYDROX/AL HYDROX/SIMETH ES 30 ML SUSPENSION UDCUP PO PRN (08:00)
[2017-08-08] MEDS ORDERED: MAGNESIUM HYDROXIDE SUSPENSION 30 ML UDCUP PO PRN (08:00)
[2017-08-08] MEDS ORDERED: LOPERAMIDE HCL 2 MG CAPSULE PO PRN (08:00)
[2017-08-08] MEDS ORDERED: BACITRACIN 28.4 GM OINTMENT TP PRN (08:00)
[2017-08-08] MEDS ORDERED: BENZOCAINE/MENTHOL LOZENGE MM PRN (08:00)
[2017-08-08] MEDS ORDERED: ONDANSETRON HCL 4 MG TABLET PO PRN (08:00)
[2017-08-08] MEDS ORDERED: PETROLATUM,WHITE 71 GM JELLY TP PRN (08:00)
[2017-08-08] MEDS ORDERED: IBUPROFEN 600 MG TABLET PO PRN (08:00)
[2017-08-08] MEDS ORDERED: CloNIDine HCL 0.1 MG TABLET PO PRN (08:00)
[2017-08-08] MEDS ORDERED: ACETAMINOPHEN 325 MG TABLET PO PRN (08:00)
[2017-08-08] MEDS ORDERED: ALBUTEROL SULFATE HFA 90 MCG/PUFF 8 GM INHALER IH PRN (08:00)
[2017-08-08] MEDS: NICOTINE 7 MG/24 HOUR PATCH TD SCH (09:00)
[2017-08-08 09:08] VITALS: BP 109/69
[2017-08-08] MEDS: OLANZapine 5 MG TABLET PO SCH ×2 (09:08→21:06)
[2017-08-08] MEDS: FLUoxetine HCL 20 MG CAPSULE PO SCH (09:08)
[2017-08-08 17:30] VITALS: BP 112/72
[2017-08-09] MEDS: OLANZapine 5 MG TABLET PO SCH ×2 (08:51→20:56)
[2017-08-09] MEDS: FLUoxetine HCL 20 MG CAPSULE PO SCH (08:51)
[2017-08-09] MEDS: NICOTINE 7 MG/24 HOUR PATCH TD SCH (09:02)
[2017-08-09 09:39] VITALS: BP 129/74
[2017-08-09 17:42] VITALS: BP 120/77
[2017-08-10 09:06] VITALS: BP 141/85
[2017-08-10] MEDS: OLANZapine 5 MG TABLET PO SCH ×2 (09:38→20:20)
[2017-08-10] MEDS: FLUoxetine HCL 20 MG CAPSULE PO SCH (09:38)
[2017-08-10] MEDS: NICOTINE 7 MG/24 HOUR PATCH TD SCH (09:39)
[2017-08-10] MEDS: LORazepam 2 MG TABLET PO PRN (16:05)
[2017-08-10 19:02] VITALS: BP 122/72
[2017-08-11] MEDS: NICOTINE 7 MG/24 HOUR PATCH TD SCH (09:00)
[2017-08-11] MEDS: OLANZapine 5 MG TABLET PO SCH (09:02)
[2017-08-11] MEDS: FLUoxetine HCL 20 MG CAPSULE PO SCH (09:02)
[2017-08-11 09:15] VITALS: BP 149/76
[2017-08-11] MEDS: LORazepam 2 MG TABLET PO PRN ×2 (10:06→16:09)
== END 2017-08-11 17:15 | disposition home or self-care (01) | DRG 750 ==
LOC: EMS 15:30 → 3EI 18:33
PROVIDERS: ADMIT Psychiatry & Neurology Psychiatry; ATTEND Psychiatry & Neurology Psychiatry
DX: F25.0 Schizoaffective disorder, bipolar type (principal); R45.851 Suicidal ideations; F12.90 Cannabis use, unspecified, uncomplicated; G47.00 Insomnia, unspecified; F17.210 Nicotine dependence, cigarettes, uncomplicated; F41.9 Anxiety disorder, unspecified; Z71.6 Tobacco abuse counseling; Z79.899 Other long term (current) drug therapy
CPT/HCPCS: 87081; G0480; J1200; J1630; J2060

== ENCOUNTER 2017-11-15 18:47 | Inpatient (IN) | payer MEDICAID, OTHER ==
[~2017-11-15] VITALS: Ht 175.3 cm; Wt 109.2 kg
[2017-11-15] MEDS ORDERED: QUET100T PO (18:53)
[2017-11-15] MEDS ORDERED: VENL50TA44 PO (18:53)
[2017-11-15] MEDS ORDERED: LORA2TAB2 PO (18:53)
[2017-11-15] MEDS ORDERED: GABA-529 PO (18:53)
[2017-11-15 19:15] LABS: BASOPHILS % (AUTO) 0.5 % (0.0-2.0); EOSINOPHILS % (AUTO) 3.7 % (1.0-6.0); HEMATOCRIT 35.2 % (41-53); HEMOGLOBIN 11.9 g/dL (13.5-17.5); LYMPHOCYTES # (AUTO) 3.2 K/uL (1.0-4.8); LYMPHOCYTES % (AUTO) 34.4 % (22.0-44.0); MEAN CORPUSCULAR HEMOGLOBIN 29.6 pg (26.0-34.0); MEAN CORPUSCULAR HGB CONC 33.8 G/dL (31.0-37.0); MEAN CORPUSCULAR VOLUME 88 fL (80-100); MONOCYTES # (AUTO) 0.8 K/uL (0.1-1.0); MONOCYTES % (AUTO) 8.7 % (2.0-9.0); NEUTROPHILS # (AUTO) 4.9 K/uL (1.8-7.7); NEUTROPHILS % (AUTO) 52.7 % (40.0-70.0); PLATELET COUNT (AUTO) 265 K/uL (150-450); RED BLOOD CELL COUNT(AUTO) 4.03 MIL/uL (4.50-5.90); RED CELL DISTRIBUTION WIDTH 15.1 % (11.5-14.5)
[2017-11-15 19:28] LABS: ANION GAP 5 mmol/L (8-16); CALCIUM, TOTAL 8.4 mg/dL (8.8-10.5); CARBON DIOXIDE 31 mmol/L (22-29); CHLORIDE 101 mmol/L (98-107); CREATININE 0.93 mg/dL (0.60-1.30); GLOMERULAR FILTR. RATE CALC > 60 mL/min (>60); GLUCOSE,RANDOM 93 mg/dL (70-110); POTASSIUM 3.9 mmol/L (3.5-5.1); SODIUM SERUM 137 mmol/L (136-145); UREA NITROGEN, BLOOD 17 mg/dL (7-18)
[2017-11-15] MEDS ORDERED: BACITRACIN 0.9 GM PACKET OINTMENT TP ONE (19:30)
[2017-11-15 19:34] LABS: ALANINE AMINOTRANSFERASE 33 U/L (12-78); ALBUMIN 3.3 g/dL (3.4-5.0); ALKALINE PHOSPHATASE 98 U/L (46-116); ASPARTATE AMINOTRANSFERASE 16 U/L (15-37); BILIRUBIN,TOTAL 0.2 mg/dL (0.1-1.0); TOTAL PROTEIN, SERUM 6.6 g/dL (6.4-8.2)
[2017-11-15 19:49] LABS: AMPHET/METH SCREEN,URINE POSITIVE (NEGATIVE); BARBITURATE SCREEN, URINE NEGATIVE (NEGATIVE); BENZODIAZEPINES SCREEN,URINE POSITIVE (NEGATIVE); CANNABINOID SCREEN,URINE POSITIVE (NEGATIVE); COCAINE SCREEN,URINE NEGATIVE (NEGATIVE); METHADONE SCREEN, URINE POSITIVE (NEGATIVE); OPIATE SCREEN,URINE POSITIVE (NEGATIVE)
[2017-11-15 19:50] LABS: PHENCYCLIDINE SCREEN,URINE NEGATIVE (NEGATIVE)
[2017-11-15] MEDS: LORazepam 2 MG TABLET PO PRN (21:17)
[2017-11-15] MEDS: ZOLPIDEM TARTRATE 10 MG TABLET PO PRN (21:17)
[2017-11-15] MEDS: HALOPERIDOL 5 MG TABLET PO PRN (21:17)
[2017-11-15 21:18] VITALS: BP 111/65
[2017-11-16 00:50] VITALS: BP 120/69
[2017-11-16] MEDS ORDERED: PETROLATUM,WHITE 71 GM JELLY TP PRN (07:45)
[2017-11-16] MEDS ORDERED: ACETAMINOPHEN 325 MG TABLET PO PRN (07:45)
[2017-11-16] MEDS ORDERED: DOCUSATE SODIUM 100 MG CAPSULE PO PRN (07:45)
[2017-11-16] MEDS ORDERED: ONDANSETRON HCL 4 MG TABLET PO PRN (07:45)
[2017-11-16] MEDS ORDERED: MAG HYDROX/AL HYDROX/SIMETH ES 30 ML SUSPENSION UDCUP PO PRN (07:45)
[2017-11-16] MEDS ORDERED: IBUPROFEN 400 MG TABLET PO PRN (07:45)
[2017-11-16] MEDS ORDERED: ALBUTEROL SULFATE HFA 90 MCG/PUFF 8 GM INHALER IH PRN (07:45)
[2017-11-16] MEDS ORDERED: MAGNESIUM HYDROXIDE SUSPENSION 30 ML UDCUP PO PRN (07:45)
[2017-11-16] MEDS: NICOTINE 14 MG/24 HOUR PATCH TD SCH (08:28)
[2017-11-16] MEDS: KETOCONAZOLE 2% 120 ML SHAMPOO TP SCH (08:28)
[2017-11-16] MEDS: BACITRACIN 28.4 GM OINTMENT TP SCH ×2 (08:28→17:13)
[2017-11-16] MEDS: HALOPERIDOL 5 MG TABLET PO PRN ×2 (08:37→17:14)
[2017-11-16] MEDS: LORazepam 2 MG TABLET PO PRN ×2 (08:37→17:14)
[2017-11-16 09:51] VITALS: BP 110/51
[2017-11-16] MEDS: FERROUS SULFATE 325 MG EC TABLET PO SCH ×2 (11:15→17:14)
[2017-11-16] MEDS: GABAPENTIN 300 MG CAPSULE PO SCH ×2 (12:03→17:14)
[2017-11-16 16:00] VITALS: BP 114/65
[2017-11-16] MEDS ORDERED: SELENIUM SULFIDE 1% 207 ML SHAMPOO TP ONE (17:00)
[2017-11-16] MEDS: QUEtiapine FUMARATE 300 MG TABLET PO SCH (21:04)
[2017-11-16] MEDS: ZOLPIDEM TARTRATE 10 MG TABLET PO PRN (21:05)
[2017-11-17 05:20] VITALS: BP 106/74
[2017-11-17] MEDS: FERROUS SULFATE 325 MG EC TABLET PO SCH ×2 (06:33→17:03)
[2017-11-17 08:00] VITALS: BP 112/64
[2017-11-17 08:29] LABS: HEMOGLOBIN A1C 5.4 % (4.5-6.2)
[2017-11-17 08:39] LABS: CHOL/HDL RATIO 3.7 (4.2-7.3)
[2017-11-17] MEDS: NICOTINE 14 MG/24 HOUR PATCH TD SCH (09:00)
[2017-11-17] MEDS: KETOCONAZOLE 2% 120 ML SHAMPOO TP SCH (09:00)
[2017-11-17] MEDS: GABAPENTIN 300 MG CAPSULE PO SCH ×3 (09:30→17:03)
[2017-11-17] MEDS: VENLAFAXINE HCL 150 MG ER CAPSULE PO SCH (09:30)
[2017-11-17] MEDS: BACITRACIN 28.4 GM OINTMENT TP SCH ×2 (09:31→17:04)
[2017-11-17 16:00] VITALS: BP 114/69
[2017-11-17] MEDS: LORazepam 2 MG TABLET PO PRN (17:03)
[2017-11-17] MEDS: QUEtiapine FUMARATE 300 MG TABLET PO SCH (21:12)
[2017-11-18 01:25] VITALS: BP 149/82
[2017-11-18] MEDS: FERROUS SULFATE 325 MG EC TABLET PO SCH ×2 (06:16→16:31)
[2017-11-18 08:12] VITALS: BP 129/78
[2017-11-18] MEDS: KETOCONAZOLE 2% 120 ML SHAMPOO TP SCH (08:59)
[2017-11-18] MEDS: BACITRACIN 28.4 GM OINTMENT TP SCH ×2 (08:59→16:32)
[2017-11-18] MEDS: GABAPENTIN 300 MG CAPSULE PO SCH ×3 (08:59→16:31)
[2017-11-18] MEDS: VENLAFAXINE HCL 150 MG ER CAPSULE PO SCH (08:59)
[2017-11-18] MEDS: NICOTINE 14 MG/24 HOUR PATCH TD SCH (08:59)
[2017-11-18] MEDS: LORazepam 2 MG TABLET PO PRN ×2 (09:10→16:31)
[2017-11-18 16:00] VITALS: BP 110/65
[2017-11-18] MEDS: HALOPERIDOL 5 MG TABLET PO PRN (16:32)
[2017-11-18] MEDS: QUEtiapine FUMARATE 300 MG TABLET PO SCH (21:15)
[2017-11-19] MEDS: FERROUS SULFATE 325 MG EC TABLET PO SCH (07:08)
[2017-11-19 08:09] VITALS: BP 117/62
[2017-11-19] MEDS: LORazepam 2 MG TABLET PO PRN (09:07)
[2017-11-19] MEDS: GABAPENTIN 300 MG CAPSULE PO SCH ×2 (09:07→12:06)
[2017-11-19] MEDS: VENLAFAXINE HCL 150 MG ER CAPSULE PO SCH (09:07)
[2017-11-19] MEDS: NICOTINE 14 MG/24 HOUR PATCH TD SCH (09:08)
[2017-11-19] MEDS: BACITRACIN 28.4 GM OINTMENT TP SCH (09:10)
[2017-11-19] MEDS: KETOCONAZOLE 2% 120 ML SHAMPOO TP SCH (09:11)
[2017-11-19] MEDS ORDERED: QUET300T2 PO (11:21)
[2017-11-19] MEDS ORDERED: VENL-68 PO (11:22)
[2017-11-19] MEDS ORDERED: FERR-89 PO (11:22)
[2017-11-19] MEDS ORDERED: GABA-531 PO (11:23)
== END 2017-11-19 13:45 | disposition home or self-care (01) | DRG 750 ==
LOC: EMS 18:49 → B3A 19:57
PROVIDERS: ADMIT Psychiatry & Neurology Psychiatry; ATTEND Psychiatry & Neurology Psychiatry
DX: F20.9 Schizophrenia, unspecified (principal); Z59.0 Homelessness; E78.5 Hyperlipidemia, unspecified; D64.9 Anemia, unspecified; S51.812A Laceration without foreign body of left forearm, initial encounter; F31.9 Bipolar disorder, unspecified; F10.10 Alcohol abuse, uncomplicated; F12.90 Cannabis use, unspecified, uncomplicated; T14.91XA Suicide attempt, initial encounter; X78.8XXA Intentional self-harm by other sharp object, initial encounter; F41.9 Anxiety disorder, unspecified; F17.210 Nicotine dependence, cigarettes, uncomplicated; Y90.9 Presence of alcohol in blood, level not specified; G47.00 Insomnia, unspecified; F19.10 Other psychoactive substance abuse, uncomplicated; R00.0 Tachycardia, unspecified; F15.90 Other stimulant use, unspecified, uncomplicated; Y93.89 Activity, other specified; Y92.89 Other specified places as the place of occurrence of the external cause; Y99.8 Other external cause status; Z79.899 Other long term (current) drug therapy; Z71.6 Tobacco abuse counseling; Z71.51 Drug abuse counseling and surveillance of drug abuser; Z71.41 Alcohol abuse counseling and surveillance of alcoholic
CPT/HCPCS: 83036; 84443; 99285; G0480

== ENCOUNTER 2018-04-21 13:55 | Emergency (ER) | payer MEDICAID, OTHER ==
[~2018-04-21] VITALS: Ht 175.3 cm; Wt 102.7 kg
[~2018-04-21 13:55] MED LIST changes: -FLUO-191 PO; +GABA-531 PO; -OLAN5TAB2 PO; +QUET200T PO; +QUET300T2 PO; +VENL-68 PO
[2018-04-21 15:08] VITALS: BP 115/69
[2018-04-24] MEDS ORDERED: QUET200T PO (17:18)
[2018-04-24] MEDS ORDERED: VENL-67 PO (17:18)
== END 2018-04-21 15:11 | disposition home or self-care (01) ==
LOC: EMS 13:58
DX: F41.9 Anxiety disorder, unspecified (principal); F31.9 Bipolar disorder, unspecified; F20.9 Schizophrenia, unspecified; F17.210 Nicotine dependence, cigarettes, uncomplicated; F15.10 Other stimulant abuse, uncomplicated; F12.90 Cannabis use, unspecified, uncomplicated; Z59.0 Homelessness; Z76.0 Encounter for issue of repeat prescription; Z79.899 Other long term (current) drug therapy
CPT/HCPCS: 99406

== ENCOUNTER 2018-06-11 16:21 | Emergency (ER) | payer MEDICAID, OTHER ==
[~2018-06-11] VITALS: Ht 175.3 cm; Wt 95.5 kg
[~2018-06-11 16:21] MED LIST changes: -QUET300T2 PO; +VENL-67 PO; -VENL-68 PO
[2018-06-11 16:22] VITALS: BP 125/53
== END 2018-06-11 19:30 | disposition left against medical advice (07) ==
LOC: EMS 16:22
DX: K08.89 Other specified disorders of teeth and supporting structures (principal); F41.9 Anxiety disorder, unspecified; F31.9 Bipolar disorder, unspecified; F20.9 Schizophrenia, unspecified; F17.210 Nicotine dependence, cigarettes, uncomplicated; F12.90 Cannabis use, unspecified, uncomplicated; F19.90 Other psychoactive substance use, unspecified, uncomplicated; Z53.21 Procedure and treatment not carried out due to patient leaving prior to being seen by health care provider

== ENCOUNTER 2018-06-17 09:11 | Inpatient (IN) | payer MEDICAID, OTHER ==
[~2018-06-17] VITALS: Ht 175.3 cm; Wt 89.8 kg
[2018-06-17] MEDS ORDERED: DIPH25 PO (09:19)
[2018-06-17 09:54] LABS: BASOPHILS % (AUTO) 0.6 % (0.0-2.0); EOSINOPHILS % (AUTO) 0.9 % (1.0-6.0); HEMATOCRIT 41.2 % (41-53); LYMPHOCYTES # (AUTO) 1.1 K/uL (1.0-4.8); LYMPHOCYTES % (AUTO) 13.7 % (22.0-44.0); MEAN CORPUSCULAR HEMOGLOBIN 31.1 pg (26.0-34.0); MEAN CORPUSCULAR VOLUME 92 fL (80-100); MONOCYTES # (AUTO) 0.4 K/uL (0.1-1.0); MONOCYTES % (AUTO) 5.5 % (2.0-9.0); NEUTROPHILS # (AUTO) 6.2 K/uL (1.8-7.7); NEUTROPHILS % (AUTO) 79.3 % (40.0-70.0); PLATELET COUNT (AUTO) 277 K/uL (150-450); RED CELL DISTRIBUTION WIDTH 14.6 % (11.5-14.5)
[2018-06-17 09:56] LABS: ANION GAP 12 mmol/L (8-16); CARBON DIOXIDE 25 mmol/L (22-29); CHLORIDE 104 mmol/L (98-107); CREATININE 0.76 mg/dL (0.60-1.30); GLOMERULAR FILTR. RATE CALC > 60 mL/min (>60); GLUCOSE,RANDOM 80 mg/dL (70-110); POTASSIUM 4.2 mmol/L (3.5-5.1); SODIUM SERUM 141 mmol/L (136-145); UREA NITROGEN, BLOOD 14 mg/dL (7-18)
[2018-06-17 09:58] LABS: AMPHET/METH SCREEN,URINE NEGATIVE (NEGATIVE); BARBITURATE SCREEN, URINE NEGATIVE (NEGATIVE); BENZODIAZEPINES SCREEN,URINE NEGATIVE (NEGATIVE); CANNABINOID SCREEN,URINE POSITIVE (NEGATIVE); COCAINE SCREEN,URINE NEGATIVE (NEGATIVE); METHADONE SCREEN, URINE NEGATIVE (NEGATIVE); OPIATE SCREEN,URINE NEGATIVE (NEGATIVE); PHENCYCLIDINE SCREEN,URINE NEGATIVE (NEGATIVE)
[2018-06-17 10:05] LABS: ALANINE AMINOTRANSFERASE 35 U/L (12-78); ALBUMIN 3.8 g/dL (3.4-5.0); ALKALINE PHOSPHATASE 126 U/L (46-116); ASPARTATE AMINOTRANSFERASE 19 U/L (15-37); BILIRUBIN,TOTAL 0.4 mg/dL (0.1-1.0); TOTAL PROTEIN, SERUM 7.1 g/dL (6.4-8.2)
[2018-06-17] MEDS ORDERED: QUEtiapine FUMARATE 100 MG TABLET PO ONE (10:45)
[2018-06-17] MEDS ORDERED: ZOLPIDEM TARTRATE 10 MG TABLET PO PRN (11:45)
[2018-06-17] MEDS ORDERED: PNEUMOCOCCAL VACCINE POLYVALENT 0.5 ML VIAL [PPSV23] IM ONE (14:15)
[2018-06-17 14:27] VITALS: BP 123/73
[2018-06-17] MEDS: HALOPERIDOL 5 MG TABLET PO PRN (14:46)
[2018-06-17] MEDS: LORazepam 2 MG TABLET PO PRN (14:46)
[2018-06-17] MEDS ORDERED: NICOTINE 14 MG/24 HOUR PATCH TD PRN (16:00)
[2018-06-17] MEDS ORDERED: MAGNESIUM HYDROXIDE SUSPENSION 30 ML UDCUP PO PRN (16:00)
[2018-06-17] MEDS ORDERED: ONDANSETRON HCL 4 MG TABLET PO PRN (16:00)
[2018-06-17] MEDS ORDERED: DOCUSATE SODIUM 100 MG CAPSULE PO PRN (16:00)
[2018-06-17] MEDS ORDERED: IBUPROFEN 400 MG TABLET PO PRN (16:00)
[2018-06-17] MEDS ORDERED: ALBUTEROL SULFATE HFA 90 MCG/PUFF 8 GM INHALER IH PRN (16:00)
[2018-06-17] MEDS ORDERED: MAG HYDROX/AL HYDROX/SIMETH ES 30 ML SUSPENSION UDCUP PO PRN (16:00)
[2018-06-17] MEDS ORDERED: GuaiFENesin/D-METHORPHAN [SUGAR-FREE] 200-20MG/10 ML SYRUP UDCUP PO PRN (16:00)
[2018-06-17] MEDS ORDERED: LOPERAMIDE HCL 2 MG CAPSULE PO PRN (16:00)
[2018-06-17] MEDS ORDERED: PETROLATUM,WHITE 71 GM JELLY TP PRN (16:00)
[2018-06-17] MEDS ORDERED: CloNIDine HCL 0.1 MG TABLET PO PRN (16:00)
[2018-06-17] MEDS ORDERED: ACETAMINOPHEN 325 MG TABLET PO PRN (16:00)
[2018-06-17 16:16] VITALS: BP 110/68
[2018-06-18 00:23] VITALS: BP 108/64
[2018-06-18] MEDS: LORazepam 2 MG TABLET PO PRN ×2 (02:23→08:38)
[2018-06-18 08:27] VITALS: BP 124/83
[2018-06-18] MEDS: HALOPERIDOL 5 MG TABLET PO PRN (08:38)
[2018-06-18 08:44] LABS: BASOPHILS % (AUTO) 0.7 % (0.0-2.0); EOSINOPHILS % (AUTO) 3.1 % (1.0-6.0); HEMATOCRIT 38.1 % (41-53); HEMOGLOBIN 12.6 g/dL (13.5-17.5); LYMPHOCYTES # (AUTO) 2.1 K/uL (1.0-4.8); LYMPHOCYTES % (AUTO) 43.2 % (22.0-44.0); MEAN CORPUSCULAR HEMOGLOBIN 30.7 pg (26.0-34.0); MEAN CORPUSCULAR VOLUME 93 fL (80-100); MONOCYTES # (AUTO) 0.4 K/uL (0.1-1.0); MONOCYTES % (AUTO) 9.3 % (2.0-9.0); NEUTROPHILS # (AUTO) 2.1 K/uL (1.8-7.7); NEUTROPHILS % (AUTO) 43.7 % (40.0-70.0); PLATELET COUNT (AUTO) 233 K/uL (150-450); RED CELL DISTRIBUTION WIDTH 14.6 % (11.5-14.5)
[2018-06-18 09:01] LABS: ALANINE AMINOTRANSFERASE 27 U/L (12-78); ALBUMIN 3.1 g/dL (3.4-5.0); ALKALINE PHOSPHATASE 101 U/L (46-116); ANION GAP 4 mmol/L (8-16); ASPARTATE AMINOTRANSFERASE 13 U/L (15-37); BILIRUBIN,TOTAL 0.2 mg/dL (0.1-1.0); CALCIUM, TOTAL 8.7 mg/dL (8.8-10.5); CARBON DIOXIDE 31 mmol/L (22-29); CHLORIDE 106 mmol/L (98-107); CHOL/HDL RATIO 2.6 (4.2-7.3); CHOLESTEROL 133 mg/dL (131-200); CREATININE 0.69 mg/dL (0.60-1.30); GLOMERULAR FILTR. RATE CALC > 60 mL/min (>60); GLUCOSE,RANDOM 82 mg/dL (70-110); HDL CHOLESTEROL 52 mg/dL (40-60); LDL CHOL (CALC.) 69 mg/dL (0-130); POTASSIUM 4.3 mmol/L (3.5-5.1); SODIUM SERUM 141 mmol/L (136-145); THYROID STIMULATING HORMONE 0.32 uIU/mL (0.36-3.74); TRIGLYCERIDES 60 mg/dL (15-150); UREA NITROGEN, BLOOD 14 mg/dL (7-18)
[2018-06-18 09:27] LABS: HEMOGLOBIN A1C 5.2 % (4.5-6.2)
[2018-06-18] MEDS: QUEtiapine FUMARATE 200 MG TABLET PO SCH ×2 (10:14→20:12)
[2018-06-18] MEDS: VENLAFAXINE HCL 75 MG ER CAPSULE PO SCH (10:14)
[2018-06-18] MEDS: GABAPENTIN 300 MG CAPSULE PO SCH ×2 (13:03→16:59)
[2018-06-18 16:12] VITALS: BP 119/81
[2018-06-19 00:44] VITALS: BP 120/79
[2018-06-19] MEDS: LORazepam 2 MG TABLET PO PRN ×4 (04:07→20:46)
[2018-06-19] MEDS: GABAPENTIN 300 MG CAPSULE PO SCH ×3 (08:11→16:26)
[2018-06-19] MEDS: QUEtiapine FUMARATE 200 MG TABLET PO SCH ×2 (08:12→20:17)
[2018-06-19] MEDS: VENLAFAXINE HCL 75 MG ER CAPSULE PO SCH (08:12)
[2018-06-19 08:30] VITALS: BP 125/63
[2018-06-19] MEDS: HALOPERIDOL 5 MG TABLET PO PRN ×2 (13:26→20:46)
[2018-06-19 16:11] VITALS: BP 115/73
[2018-06-20 03:07] VITALS: BP 116/76
[2018-06-20] MEDS: LORazepam 2 MG TABLET PO PRN ×3 (07:15→20:13)
[2018-06-20] MEDS: QUEtiapine FUMARATE 200 MG TABLET PO SCH ×2 (08:27→20:13)
[2018-06-20] MEDS: VENLAFAXINE HCL 75 MG ER CAPSULE PO SCH (08:27)
[2018-06-20] MEDS: GABAPENTIN 300 MG CAPSULE PO SCH ×3 (08:27→16:42)
[2018-06-20 08:28] VITALS: BP 117/73
[2018-06-20] MEDS: HALOPERIDOL 5 MG TABLET PO PRN (11:25)
[2018-06-20 16:30] VITALS: BP 111/68
[2018-06-20] MEDS: FERROUS SULFATE 325 MG EC TABLET PO SCH (16:37)
[2018-06-21 00:42] VITALS: BP 130/62
[2018-06-21] MEDS: LORazepam 2 MG TABLET PO PRN (06:42)
[2018-06-21] MEDS: HALOPERIDOL 5 MG TABLET PO PRN (06:42)
[2018-06-21] MEDS: FERROUS SULFATE 325 MG EC TABLET PO SCH (06:56)
[2018-06-21 08:21] VITALS: BP 124/41
[2018-06-21] MEDS: QUEtiapine FUMARATE 200 MG TABLET PO SCH (09:19)
[2018-06-21] MEDS: VENLAFAXINE HCL 75 MG ER CAPSULE PO SCH (09:19)
[2018-06-21] MEDS: GABAPENTIN 300 MG CAPSULE PO SCH (09:20)
[2018-06-21] MEDS ORDERED: QUET200T PO ×2 (09:41)
[2018-06-21] MEDS ORDERED: VENL-67 PO (09:41)
[2018-06-21] MEDS ORDERED: GABA-531 PO (09:41)
== END 2018-06-21 11:20 | disposition home or self-care (01) | DRG 750 ==
LOC: EMS 09:13 → B2S 12:32 → EMS 13:04
PROVIDERS: ADMIT Psychiatry & Neurology Child & Adolescent Psychiatry; ATTEND Psychiatry & Neurology Child & Adolescent Psychiatry
DX: F25.0 Schizoaffective disorder, bipolar type (principal); R45.851 Suicidal ideations; Z59.0 Homelessness; F17.200 Nicotine dependence, unspecified, uncomplicated; D64.9 Anemia, unspecified; E05.90 Thyrotoxicosis, unspecified without thyrotoxic crisis or storm; K21.9 Gastro-esophageal reflux disease without esophagitis; F15.90 Other stimulant use, unspecified, uncomplicated; F41.9 Anxiety disorder, unspecified; Z91.19 Patient's noncompliance with other medical treatment and regimen; Z79.899 Other long term (current) drug therapy; Z71.6 Tobacco abuse counseling
CPT/HCPCS: 83036; 84443; 90686; 90732; G0480

== ENCOUNTER 2018-07-16 18:00 | Emergency (ER) | payer MEDICAID ==
[~2018-07-16] VITALS: Ht 172.7 cm; Wt 90.9 kg
[2018-07-16 18:36] VITALS: BP 133/85
[2018-07-16 19:13] LABS: BASOPHILS % (AUTO) 0.5 % (0.0-2.0); EOSINOPHILS % (AUTO) 1.3 % (1.0-6.0); HEMATOCRIT 41.4 % (41-53); HEMOGLOBIN 13.9 g/dL (13.5-17.5); LYMPHOCYTES # (AUTO) 2.8 K/uL (1.0-4.8); LYMPHOCYTES % (AUTO) 27.9 % (22.0-44.0); MEAN CORPUSCULAR HEMOGLOBIN 30.2 pg (26.0-34.0); MEAN CORPUSCULAR HGB CONC 33.5 G/dL (31.0-37.0); MEAN CORPUSCULAR VOLUME 90 fL (80-100); MONOCYTES # (AUTO) 0.9 K/uL (0.1-1.0); MONOCYTES % (AUTO) 9.3 % (2.0-9.0); NEUTROPHILS # (AUTO) 6.1 K/uL (1.8-7.7); PLATELET COUNT (AUTO) 281 K/uL (150-450); RED BLOOD CELL COUNT(AUTO) 4.59 MIL/uL (4.50-5.90); RED CELL DISTRIBUTION WIDTH 13.5 % (11.5-14.5)
[2018-07-16 19:30] LABS: ANION GAP 13 mmol/L (8-16); CARBON DIOXIDE 27 mmol/L (22-29); CHLORIDE 104 mmol/L (98-107); CREATININE 1.12 mg/dL (0.60-1.30); GLOMERULAR FILTR. RATE CALC > 60 mL/min (>60); GLUCOSE,RANDOM 90 mg/dL (70-110); POTASSIUM 3.6 mmol/L (3.5-5.1); SODIUM SERUM 144 mmol/L (136-145); UREA NITROGEN, BLOOD 20 mg/dL (7-18)
[2018-07-16 19:35] LABS: ALANINE AMINOTRANSFERASE 39 U/L (12-78); ALBUMIN 3.8 g/dL (3.4-5.0); ALKALINE PHOSPHATASE 128 U/L (46-116); ASPARTATE AMINOTRANSFERASE 44 U/L (15-37); BILIRUBIN,TOTAL 0.4 mg/dL (0.1-1.0); TOTAL PROTEIN, SERUM 7.4 g/dL (6.4-8.2)
== END 2018-07-16 20:00 | disposition left against medical advice (07) ==
LOC: EMS 18:01
DX: F41.9 Anxiety disorder, unspecified (principal); R45.1 Restlessness and agitation; F31.9 Bipolar disorder, unspecified; F20.9 Schizophrenia, unspecified; F17.210 Nicotine dependence, cigarettes, uncomplicated; F12.90 Cannabis use, unspecified, uncomplicated; F15.90 Other stimulant use, unspecified, uncomplicated; Z53.21 Procedure and treatment not carried out due to patient leaving prior to being seen by health care provider
CPT/HCPCS: 36415; 80053; 85025; G0480

== ENCOUNTER 2018-07-18 14:48 | Inpatient (IN) | payer MEDICAID, OTHER ==
[~2018-07-18] VITALS: Ht 175.3 cm; Wt 87.4 kg
[2018-07-18] MEDS ORDERED: LORazepam 2 MG/ML VIAL IM ONE (16:30)
[2018-07-18] MEDS ORDERED: DiphenhydrAMINE HCL 50 MG/ML VIAL IM ONE (16:30)
[2018-07-18] MEDS ORDERED: HALOPERIDOL LACTATE 5 MG/ML VIAL IM ONE (16:30)
[2018-07-18 16:43] LABS: BASOPHILS % (AUTO) 0.4 % (0.0-2.0); EOSINOPHILS % (AUTO) 2.3 % (1.0-6.0); HEMATOCRIT 36.9 % (41-53); LYMPHOCYTES # (AUTO) 2.1 K/uL (1.0-4.8); LYMPHOCYTES % (AUTO) 30.3 % (22.0-44.0); MEAN CORPUSCULAR HEMOGLOBIN 31.4 pg (26.0-34.0); MEAN CORPUSCULAR HGB CONC 35.2 G/dL (31.0-37.0); MEAN CORPUSCULAR VOLUME 89 fL (80-100); MONOCYTES # (AUTO) 0.8 K/uL (0.1-1.0); MONOCYTES % (AUTO) 11.3 % (2.0-9.0); NEUTROPHILS # (AUTO) 3.9 K/uL (1.8-7.7); NEUTROPHILS % (AUTO) 55.7 % (40.0-70.0); PLATELET COUNT (AUTO) 216 K/uL (150-450); RED BLOOD CELL COUNT(AUTO) 4.13 MIL/uL (4.50-5.90); RED CELL DISTRIBUTION WIDTH 13.7 % (11.5-14.5)
[2018-07-18 16:54] LABS: ALANINE AMINOTRANSFERASE 47 U/L (12-78); ALBUMIN 3.5 g/dL (3.4-5.0); ALKALINE PHOSPHATASE 109 U/L (46-116); ANION GAP 10 mmol/L (8-16); ASPARTATE AMINOTRANSFERASE 59 U/L (15-37); BILIRUBIN,TOTAL 0.6 mg/dL (0.1-1.0); CALCIUM, TOTAL 8.9 mg/dL (8.8-10.5); CARBON DIOXIDE 27 mmol/L (22-29); CHLORIDE 104 mmol/L (98-107); CREATININE 0.82 mg/dL (0.60-1.30); GLOMERULAR FILTR. RATE CALC > 60 mL/min (>60); GLUCOSE,RANDOM 88 mg/dL (70-110); SODIUM SERUM 141 mmol/L (136-145); TOTAL PROTEIN, SERUM 7.1 g/dL (6.4-8.2); UREA NITROGEN, BLOOD 11 mg/dL (7-18)
[2018-07-18 16:56] LABS: POTASSIUM 2.9 mmol/L (3.5-5.1)
[2018-07-18] MEDS ORDERED: POTASSIUM CHLORIDE 20 MEQ ER TABLET PO ONE (17:00)
[2018-07-18 21:57] LABS: AMPHET/METH SCREEN,URINE POSITIVE (NEGATIVE); BARBITURATE SCREEN, URINE NEGATIVE (NEGATIVE); BENZODIAZEPINES SCREEN,URINE NEGATIVE (NEGATIVE); CANNABINOID SCREEN,URINE POSITIVE (NEGATIVE); COCAINE SCREEN,URINE NEGATIVE (NEGATIVE); METHADONE SCREEN, URINE NEGATIVE (NEGATIVE); OPIATE SCREEN,URINE POSITIVE (NEGATIVE)
[2018-07-18 21:58] LABS: PHENCYCLIDINE SCREEN,URINE NEGATIVE (NEGATIVE)
[2018-07-18] MEDS ORDERED: ZOLPIDEM TARTRATE 10 MG TABLET PO PRN (23:00)
[2018-07-19 00:15] VITALS: BP 128/82
[2018-07-19] MEDS ORDERED: POTASSIUM CHLORIDE 10 MEQ ER TABLET PO ONE (07:15)
[2018-07-19] MEDS ORDERED: IBUPROFEN 400 MG TABLET PO PRN (07:30)
[2018-07-19] MEDS ORDERED: CloNIDine HCL 0.1 MG TABLET PO PRN (07:30)
[2018-07-19] MEDS ORDERED: ALBUTEROL SULFATE HFA 90 MCG/PUFF 8 GM INHALER IH PRN (07:30)
[2018-07-19] MEDS ORDERED: DOCUSATE SODIUM 100 MG CAPSULE PO PRN (07:30)
[2018-07-19] MEDS ORDERED: ACETAMINOPHEN 325 MG TABLET PO PRN (07:30)
[2018-07-19] MEDS ORDERED: ONDANSETRON HCL 4 MG TABLET PO PRN (07:30)
[2018-07-19] MEDS ORDERED: NICOTINE 14 MG/24 HOUR PATCH TD PRN (07:30)
[2018-07-19] MEDS ORDERED: MAGNESIUM HYDROXIDE SUSPENSION 30 ML UDCUP PO PRN (07:30)
[2018-07-19] MEDS ORDERED: LOPERAMIDE HCL 2 MG CAPSULE PO PRN (07:30)
[2018-07-19] MEDS ORDERED: PETROLATUM,WHITE 71 GM JELLY TP PRN (07:30)
[2018-07-19] MEDS ORDERED: GuaiFENesin/D-METHORPHAN [SUGAR-FREE] 200-20MG/10 ML SYRUP UDCUP PO PRN (07:30)
[2018-07-19] MEDS ORDERED: MAG HYDROX/AL HYDROX/SIMETH ES 30 ML SUSPENSION UDCUP PO PRN (07:30)
[2018-07-19 08:22] VITALS: BP 129/89
[2018-07-19 08:26] LABS: BASOPHILS % (AUTO) 0.4 % (0.0-2.0); EOSINOPHILS % (AUTO) 3.3 % (1.0-6.0); HEMATOCRIT 38.9 % (41-53); HEMOGLOBIN 12.9 g/dL (13.5-17.5); LYMPHOCYTES # (AUTO) 2.2 K/uL (1.0-4.8); LYMPHOCYTES % (AUTO) 35.6 % (22.0-44.0); MEAN CORPUSCULAR HEMOGLOBIN 30.5 pg (26.0-34.0); MEAN CORPUSCULAR HGB CONC 33.1 G/dL (31.0-37.0); MEAN CORPUSCULAR VOLUME 92 fL (80-100); MONOCYTES # (AUTO) 0.5 K/uL (0.1-1.0); MONOCYTES % (AUTO) 8.8 % (2.0-9.0); NEUTROPHILS # (AUTO) 3.2 K/uL (1.8-7.7); NEUTROPHILS % (AUTO) 51.9 % (40.0-70.0); PLATELET COUNT (AUTO) 238 K/uL (150-450); RED BLOOD CELL COUNT(AUTO) 4.21 MIL/uL (4.50-5.90); RED CELL DISTRIBUTION WIDTH 13.6 % (11.5-14.5)
[2018-07-19] MEDS ORDERED: POTASSIUM CHLORIDE 10 MEQ ER TABLET PO SCH (09:00)
[2018-07-19 09:26] LABS: ALANINE AMINOTRANSFERASE 42 U/L (12-78); ALBUMIN 3.3 g/dL (3.4-5.0); ALKALINE PHOSPHATASE 103 U/L (46-116); ANION GAP 7 mmol/L (8-16); ASPARTATE AMINOTRANSFERASE 45 U/L (15-37); BILIRUBIN,TOTAL 0.4 mg/dL (0.1-1.0); CALCIUM, TOTAL 9.2 mg/dL (8.8-10.5); CARBON DIOXIDE 30 mmol/L (22-29); CHLORIDE 104 mmol/L (98-107); CHOL/HDL RATIO 2.5 (4.2-7.3); CHOLESTEROL 158 mg/dL (131-200); CREATININE 0.85 mg/dL (0.60-1.30); GLOMERULAR FILTR. RATE CALC > 60 mL/min (>60); GLUCOSE,RANDOM 128 mg/dL (70-110); HDL CHOLESTEROL 64 mg/dL (40-60); LDL CHOL (CALC.) 81 mg/dL (0-130); POTASSIUM 3.6 mmol/L (3.5-5.1); SODIUM SERUM 141 mmol/L (136-145); THYROID STIMULATING HORMONE 0.92 uIU/mL (0.36-3.74); TOTAL PROTEIN, SERUM 6.9 g/dL (6.4-8.2); TRIGLYCERIDES 63 mg/dL (15-150); UREA NITROGEN, BLOOD 12 mg/dL (7-18)
[2018-07-19] MEDS: QUEtiapine FUMARATE 200 MG TABLET PO SCH ×2 (11:30→20:48)
[2018-07-19] MEDS: VENLAFAXINE HCL 75 MG ER CAPSULE PO SCH (11:30)
[2018-07-19] MEDS: GABAPENTIN 300 MG CAPSULE PO SCH ×2 (12:44→16:25)
[2018-07-19 16:06] VITALS: BP 123/75
[2018-07-19] MEDS: HALOPERIDOL 5 MG TABLET PO PRN (16:25)
[2018-07-19] MEDS: LORazepam 2 MG TABLET PO PRN (16:25)
[2018-07-20 06:38] VITALS: BP 125/72
[2018-07-20] MEDS: GABAPENTIN 300 MG CAPSULE PO SCH ×3 (08:23→16:05)
[2018-07-20] MEDS: VENLAFAXINE HCL 75 MG ER CAPSULE PO SCH (08:23)
[2018-07-20] MEDS: QUEtiapine FUMARATE 200 MG TABLET PO SCH ×2 (08:24→20:14)
[2018-07-20 08:33] VITALS: BP 115/66
[2018-07-20] MEDS: LORazepam 2 MG TABLET PO PRN ×2 (09:42→18:15)
[2018-07-20 16:00] VITALS: BP 129/75
[2018-07-20] MEDS: HALOPERIDOL 5 MG TABLET PO PRN (16:05)
[2018-07-21 06:08] VITALS: BP 118/78
[2018-07-21 08:17] VITALS: BP 138/87
[2018-07-21] MEDS: QUEtiapine FUMARATE 200 MG TABLET PO SCH ×2 (08:37→20:02)
[2018-07-21] MEDS: GABAPENTIN 300 MG CAPSULE PO SCH ×3 (08:37→16:26)
[2018-07-21] MEDS: LORazepam 2 MG TABLET PO PRN ×2 (08:37→16:26)
[2018-07-21] MEDS: VENLAFAXINE HCL 75 MG ER CAPSULE PO SCH (08:37)
[2018-07-21 16:10] VITALS: BP 115/72
[2018-07-21] MEDS: HALOPERIDOL 5 MG TABLET PO PRN (16:26)
[2018-07-22 00:30] VITALS: BP 111/62
[2018-07-22] MEDS ORDERED: QUET200T PO ×2 (01:37→01:38)
[2018-07-22] MEDS ORDERED: VENL-67 PO (01:38)
[2018-07-22] MEDS ORDERED: GABA600T PO (01:39)
[2018-07-22 08:27] VITALS: BP 135/85
[2018-07-22] MEDS: GABAPENTIN 300 MG CAPSULE PO SCH (08:37)
[2018-07-22] MEDS: VENLAFAXINE HCL 75 MG ER CAPSULE PO SCH (08:46)
[2018-07-22] MEDS: QUEtiapine FUMARATE 200 MG TABLET PO SCH (08:51)
== END 2018-07-22 11:29 | disposition home or self-care (01) | DRG 750 ==
LOC: EMS 14:49 → B3A 20:52
PROVIDERS: ADMIT Psychiatry & Neurology Child & Adolescent Psychiatry; ATTEND Psychiatry & Neurology Child & Adolescent Psychiatry
DX: F25.0 Schizoaffective disorder, bipolar type (principal); Z78.1 Physical restraint status; D64.9 Anemia, unspecified; E05.90 Thyrotoxicosis, unspecified without thyrotoxic crisis or storm; F17.200 Nicotine dependence, unspecified, uncomplicated; K21.9 Gastro-esophageal reflux disease without esophagitis; F15.90 Other stimulant use, unspecified, uncomplicated; F41.9 Anxiety disorder, unspecified; Z59.0 Homelessness; Z91.14 Patient's other noncompliance with medication regimen; Z71.6 Tobacco abuse counseling
CPT/HCPCS: 83036; 84132; 84443; 87081; 96372; 99291; G0480; J1200; J1630; J2060

== ENCOUNTER 2018-07-25 09:28 | Emergency (ER) | payer MEDICAID, OTHER ==
[~2018-07-25] VITALS: Ht 170.2 cm; Wt 77.3 kg
[~2018-07-25 09:28] MED LIST changes: -GABA-531 PO; +GABA600T PO
[2018-07-25 10:54] LABS: BASOPHILS % (AUTO) 0.5 % (0.0-2.0); EOSINOPHILS % (AUTO) 0.4 % (1.0-6.0); HEMATOCRIT 42.2 % (41-53); HEMOGLOBIN 14.1 g/dL (13.5-17.5); LYMPHOCYTES # (AUTO) 1.3 K/uL (1.0-4.8); LYMPHOCYTES % (AUTO) 15.9 % (22.0-44.0); MEAN CORPUSCULAR HEMOGLOBIN 30.4 pg (26.0-34.0); MEAN CORPUSCULAR HGB CONC 33.4 G/dL (31.0-37.0); MEAN CORPUSCULAR VOLUME 91 fL (80-100); MONOCYTES # (AUTO) 0.6 K/uL (0.1-1.0); MONOCYTES % (AUTO) 6.7 % (2.0-9.0); NEUTROPHILS # (AUTO) 6.5 K/uL (1.8-7.7); NEUTROPHILS % (AUTO) 76.5 % (40.0-70.0); PLATELET COUNT (AUTO) 292 K/uL (150-450); RED BLOOD CELL COUNT(AUTO) 4.64 MIL/uL (4.50-5.90); RED CELL DISTRIBUTION WIDTH 13.9 % (11.5-14.5)
[2018-07-25 11:12] LABS: ANION GAP 8 mmol/L (8-16); CALCIUM, TOTAL 9.3 mg/dL (8.8-10.5); CARBON DIOXIDE 30 mmol/L (22-29); CHLORIDE 102 mmol/L (98-107); CREATININE 0.77 mg/dL (0.60-1.30); GLOMERULAR FILTR. RATE CALC > 60 mL/min (>60); GLUCOSE,RANDOM 97 mg/dL (70-110); SODIUM SERUM 140 mmol/L (136-145); UREA NITROGEN, BLOOD 12 mg/dL (7-18)
[2018-07-25 11:16] LABS: ALANINE AMINOTRANSFERASE 35 U/L (12-78); ALBUMIN 3.8 g/dL (3.4-5.0); ALKALINE PHOSPHATASE 119 U/L (46-116); ASPARTATE AMINOTRANSFERASE 22 U/L (15-37); BILIRUBIN,TOTAL 0.4 mg/dL (0.1-1.0); TOTAL PROTEIN, SERUM 7.6 g/dL (6.4-8.2)
[2018-07-25 11:36] VITALS: BP 134/66
[2018-07-25] MEDS ORDERED: IBUPROFEN 600 MG TABLET PO ONE (12:15)
[2018-07-25] MEDS ORDERED: QUEtiapine FUMARATE 100 MG TABLET PO ONE (12:15)
== END 2018-07-25 12:15 | disposition home or self-care (01) ==
LOC: EMS 09:29
DX: M79.671 Pain in right foot (principal); M79.672 Pain in left foot; F25.9 Schizoaffective disorder, unspecified; F69 Unspecified disorder of adult personality and behavior; F31.9 Bipolar disorder, unspecified; F20.9 Schizophrenia, unspecified; F17.210 Nicotine dependence, cigarettes, uncomplicated; F12.90 Cannabis use, unspecified, uncomplicated; F15.90 Other stimulant use, unspecified, uncomplicated; Z59.0 Homelessness
CPT/HCPCS: 36415; 80053; 85025; 99283; G0480

== ENCOUNTER 2018-12-07 22:55 | Emergency (ER) | payer OTHER ==
[~2018-12-07] VITALS: Ht 175.3 cm; Wt 121.8 kg
[2018-12-08] MEDS ORDERED: LORazepam 1 MG TABLET PO ONE (02:30)
[2018-12-08 03:19] LABS: BASOPHILS % (AUTO) 0.3 % (0.0-2.0); EOSINOPHILS % (AUTO) 3.7 % (1.0-6.0); HEMATOCRIT 43.1 % (41-53); HEMOGLOBIN 14.3 g/dL (13.5-17.5); LYMPHOCYTES # (AUTO) 2.7 K/uL (1.0-4.8); LYMPHOCYTES % (AUTO) 28.9 % (22.0-44.0); MEAN CORPUSCULAR HEMOGLOBIN 30.9 pg (26.0-34.0); MEAN CORPUSCULAR HGB CONC 33.1 G/dL (31.0-37.0); MEAN CORPUSCULAR VOLUME 93 fL (80-100); MONOCYTES # (AUTO) 0.6 K/uL (0.1-1.0); MONOCYTES % (AUTO) 6.5 % (2.0-9.0); NEUTROPHILS # (AUTO) 5.7 K/uL (1.8-7.7); NEUTROPHILS % (AUTO) 60.6 % (40.0-70.0); PLATELET COUNT (AUTO) 249 K/uL (150-450); RED BLOOD CELL COUNT(AUTO) 4.62 MIL/uL (4.50-5.90); RED CELL DISTRIBUTION WIDTH 12.5 % (11.5-14.5)
[2018-12-08 03:24] LABS: ANION GAP 9 mmol/L (8-16); CALCIUM, TOTAL 9.5 mg/dL (8.8-10.5); CARBON DIOXIDE 29 mmol/L (22-29); CHLORIDE 104 mmol/L (98-107); CREATININE 1.07 mg/dL (0.60-1.30); GLOMERULAR FILTR. RATE CALC > 60 mL/min (>60); GLUCOSE,RANDOM 102 mg/dL (70-110); POTASSIUM 3.4 mmol/L (3.5-5.1); SODIUM SERUM 142 mmol/L (136-145); UREA NITROGEN, BLOOD 16 mg/dL (7-18)
[2018-12-08 03:30] LABS: ALANINE AMINOTRANSFERASE 29 U/L (12-78); ALBUMIN 3.5 g/dL (3.4-5.0); ALKALINE PHOSPHATASE 106 U/L (46-116); ASPARTATE AMINOTRANSFERASE 13 U/L (15-37); BILIRUBIN,TOTAL 0.2 mg/dL (0.1-1.0); TOTAL PROTEIN, SERUM 7.2 g/dL (6.4-8.2)
[2018-12-08 05:07] LABS: AMPHET/METH SCREEN,URINE NEGATIVE (NEGATIVE); BARBITURATE SCREEN, URINE NEGATIVE (NEGATIVE); BENZODIAZEPINES SCREEN,URINE NEGATIVE (NEGATIVE); CANNABINOID SCREEN,URINE NEGATIVE (NEGATIVE); COCAINE SCREEN,URINE NEGATIVE (NEGATIVE); METHADONE SCREEN, URINE NEGATIVE (NEGATIVE); OPIATE SCREEN,URINE NEGATIVE (NEGATIVE)
[2018-12-08 05:08] LABS: PHENCYCLIDINE SCREEN,URINE NEGATIVE (NEGATIVE)
[2018-12-08 07:40] VITALS: BP 111/82
== END 2018-12-08 02:55 ==
LOC: EMS 22:58
DX: F41.9 Anxiety disorder, unspecified (principal); F31.9 Bipolar disorder, unspecified; F20.9 Schizophrenia, unspecified; F17.210 Nicotine dependence, cigarettes, uncomplicated; F12.90 Cannabis use, unspecified, uncomplicated; F15.90 Other stimulant use, unspecified, uncomplicated; Z59.0 Homelessness

== ENCOUNTER 2018-12-22 11:55 | Emergency (ER) | payer OTHER ==
[~2018-12-22] VITALS: Ht 175.3 cm; Wt 104.5 kg
[2018-12-22] MEDS ORDERED: ERGO2000 PO (12:27)
[2018-12-22] MEDS ORDERED: QUET300T2 PO (12:27)
[2018-12-22] MEDS ORDERED: LITH600 PO (12:27)
[2018-12-22] MEDS ORDERED: DIPH25 PO (12:27)
[2018-12-22] MEDS ORDERED: LORazepam 2 MG TABLET PO ONE (12:45)
[2018-12-22 12:46] LABS: BASOPHILS % (AUTO) 0.4 % (0.0-2.0); EOSINOPHILS % (AUTO) 2.4 % (1.0-6.0); HEMATOCRIT 40.7 % (41-53); HEMOGLOBIN 13.6 g/dL (13.5-17.5); LYMPHOCYTES # (AUTO) 1.8 K/uL (1.0-4.8); LYMPHOCYTES % (AUTO) 24.4 % (22.0-44.0); MEAN CORPUSCULAR HGB CONC 33.4 G/dL (31.0-37.0); MEAN CORPUSCULAR VOLUME 93 fL (80-100); MONOCYTES # (AUTO) 0.5 K/uL (0.1-1.0); MONOCYTES % (AUTO) 6.1 % (2.0-9.0); NEUTROPHILS % (AUTO) 66.7 % (40.0-70.0); PLATELET COUNT (AUTO) 279 K/uL (150-450); RED BLOOD CELL COUNT(AUTO) 4.38 MIL/uL (4.50-5.90); RED CELL DISTRIBUTION WIDTH 12.3 % (11.5-14.5)
[2018-12-22 12:55] LABS: AMPHET/METH SCREEN,URINE NEGATIVE (NEGATIVE); BARBITURATE SCREEN, URINE NEGATIVE (NEGATIVE); BENZODIAZEPINES SCREEN,URINE NEGATIVE (NEGATIVE); CANNABINOID SCREEN,URINE NEGATIVE (NEGATIVE); COCAINE SCREEN,URINE NEGATIVE (NEGATIVE); METHADONE SCREEN, URINE NEGATIVE (NEGATIVE); OPIATE SCREEN,URINE NEGATIVE (NEGATIVE); PHENCYCLIDINE SCREEN,URINE NEGATIVE (NEGATIVE)
[2018-12-22 12:56] LABS: ANION GAP 11 mmol/L (8-16); CARBON DIOXIDE 25 mmol/L (22-29); CHLORIDE 103 mmol/L (98-107); CREATININE 0.83 mg/dL (0.60-1.30); GLUCOSE,RANDOM 91 mg/dL (70-110); POTASSIUM 4.1 mmol/L (3.5-5.1); SODIUM SERUM 139 mmol/L (136-145); UREA NITROGEN, BLOOD 12 mg/dL (7-18)
[2018-12-22 12:57] LABS: CALCIUM, TOTAL 9.5 mg/dL (8.8-10.5); GLOMERULAR FILTR. RATE CALC > 60 mL/min (>60)
[2018-12-22] MEDS ORDERED: HALOPERIDOL 5 MG TABLET PO ONE (13:00)
[2018-12-22 13:02] LABS: ALANINE AMINOTRANSFERASE 32 U/L (12-78); ALBUMIN 4.1 g/dL (3.4-5.0); ALKALINE PHOSPHATASE 117 U/L (46-116); ASPARTATE AMINOTRANSFERASE 18 U/L (15-37); BILIRUBIN,TOTAL 0.3 mg/dL (0.1-1.0); TOTAL PROTEIN, SERUM 7.4 g/dL (6.4-8.2)
[2018-12-22 13:08] LABS: LITHIUM 0.57 mmol/L (0.60-1.20)
[2018-12-22 15:25] VITALS: BP 121/68
== END 2018-12-22 17:01 | disposition home or self-care (01) ==
LOC: EMS 11:57
DX: F31.9 Bipolar disorder, unspecified (principal); F41.9 Anxiety disorder, unspecified; F20.9 Schizophrenia, unspecified; F17.210 Nicotine dependence, cigarettes, uncomplicated; F12.90 Cannabis use, unspecified, uncomplicated; F11.90 Opioid use, unspecified, uncomplicated; F15.90 Other stimulant use, unspecified, uncomplicated; Z59.0 Homelessness
CPT/HCPCS: 36415; 80053; 80178; 80307; 85025; 99284; 99406; G0480

== ENCOUNTER 2018-12-24 20:05 | Emergency (ER) | payer OTHER ==
[~2018-12-24] VITALS: Ht 175.3 cm; Wt 107.7 kg
[~2018-12-24 20:05] MED LIST changes: +DIPH25 PO; +ERGO2000 PO; -GABA600T PO; +LITH600 PO; -QUET200T PO; +QUET300T2 PO; -VENL-67 PO
[2018-12-24] MEDS ORDERED: QUET200T PO (20:21)
[2018-12-24] MEDS ORDERED: HALO10 PO (20:21)
[2018-12-24] MEDS ORDERED: CHLO50I IM (20:21)
[2018-12-24] MEDS ORDERED: CHLO100T24 PO (20:21)
[2018-12-24 21:06] LABS: AMPHET/METH SCREEN,URINE NEGATIVE (NEGATIVE); BARBITURATE SCREEN, URINE NEGATIVE (NEGATIVE); BENZODIAZEPINES SCREEN,URINE NEGATIVE (NEGATIVE); CANNABINOID SCREEN,URINE NEGATIVE (NEGATIVE); COCAINE SCREEN,URINE NEGATIVE (NEGATIVE); METHADONE SCREEN, URINE NEGATIVE (NEGATIVE); OPIATE SCREEN,URINE NEGATIVE (NEGATIVE)
[2018-12-24 21:07] LABS: PHENCYCLIDINE SCREEN,URINE NEGATIVE (NEGATIVE)
[2018-12-24 21:27] LABS: BASOPHILS % (AUTO) 0.3 % (0.0-2.0); EOSINOPHILS % (AUTO) 2.2 % (1.0-6.0); HEMATOCRIT 40.1 % (41-53); HEMOGLOBIN 13.4 g/dL (13.5-17.5); LYMPHOCYTES # (AUTO) 2.4 K/uL (1.0-4.8); LYMPHOCYTES % (AUTO) 26.7 % (22.0-44.0); MEAN CORPUSCULAR HEMOGLOBIN 31.1 pg (26.0-34.0); MEAN CORPUSCULAR HGB CONC 33.5 G/dL (31.0-37.0); MEAN CORPUSCULAR VOLUME 93 fL (80-100); MONOCYTES # (AUTO) 0.6 K/uL (0.1-1.0); NEUTROPHILS # (AUTO) 5.6 K/uL (1.8-7.7); NEUTROPHILS % (AUTO) 63.8 % (40.0-70.0); PLATELET COUNT (AUTO) 270 K/uL (150-450); RED BLOOD CELL COUNT(AUTO) 4.32 MIL/uL (4.50-5.90); RED CELL DISTRIBUTION WIDTH 12.7 % (11.5-14.5)
[2018-12-24 21:45] LABS: LITHIUM 0.57 mmol/L (0.60-1.20)
[2018-12-24 21:51] LABS: ALANINE AMINOTRANSFERASE 33 U/L (12-78); ALBUMIN 3.9 g/dL (3.4-5.0); ALKALINE PHOSPHATASE 110 U/L (46-116); ANION GAP 7 mmol/L (8-16); ASPARTATE AMINOTRANSFERASE 13 U/L (15-37); BILIRUBIN,TOTAL 0.1 mg/dL (0.1-1.0); CALCIUM, TOTAL 9.4 mg/dL (8.8-10.5); CARBON DIOXIDE 28 mmol/L (22-29); CHLORIDE 105 mmol/L (98-107); CREATININE 0.95 mg/dL (0.60-1.30); GLOMERULAR FILTR. RATE CALC > 60 mL/min (>60); GLUCOSE,RANDOM 98 mg/dL (70-110); SODIUM SERUM 140 mmol/L (136-145); TOTAL PROTEIN, SERUM 7.4 g/dL (6.4-8.2); UREA NITROGEN, BLOOD 17 mg/dL (7-18)
[2018-12-25 00:50] VITALS: BP 122/75
== END 2018-12-25 01:02 | disposition home or self-care (01) ==
LOC: EMS 20:07
DX: T18.9XXA Foreign body of alimentary tract, part unspecified, initial encounter (principal); F20.0 Paranoid schizophrenia; F17.210 Nicotine dependence, cigarettes, uncomplicated; F41.9 Anxiety disorder, unspecified; F31.9 Bipolar disorder, unspecified; F11.90 Opioid use, unspecified, uncomplicated; F12.90 Cannabis use, unspecified, uncomplicated; F15.90 Other stimulant use, unspecified, uncomplicated; Z59.0 Homelessness; X58.XXXA Exposure to other specified factors, initial encounter; Y93.89 Activity, other specified; Y92.89 Other specified places as the place of occurrence of the external cause; Y99.8 Other external cause status
CPT/HCPCS: 36415; 74022; 80053; 80178; 80307; 85025; 99284; 99406; G0480

== ENCOUNTER 2018-12-29 19:09 | Emergency (ER) | payer OTHER ==
[~2018-12-29] VITALS: Ht 175.3 cm; Wt 107.3 kg
[~2018-12-29 19:09] MED LIST changes: +CHLO100T24 PO; +CHLO50I IM; +HALO10 PO; +QUET200T PO; -QUET300T2 PO
[2018-12-29 21:06] LABS: BASOPHILS % (AUTO) 0.4 % (0.0-2.0); EOSINOPHILS % (AUTO) 1.8 % (1.0-6.0); HEMATOCRIT 41.2 % (41-53); HEMOGLOBIN 13.6 g/dL (13.5-17.5); LYMPHOCYTES # (AUTO) 2.3 K/uL (1.0-4.8); LYMPHOCYTES % (AUTO) 27.7 % (22.0-44.0); MEAN CORPUSCULAR HEMOGLOBIN 30.7 pg (26.0-34.0); MEAN CORPUSCULAR VOLUME 93 fL (80-100); MONOCYTES # (AUTO) 0.7 K/uL (0.1-1.0); MONOCYTES % (AUTO) 8.1 % (2.0-9.0); NEUTROPHILS # (AUTO) 5.2 K/uL (1.8-7.7); PLATELET COUNT (AUTO) 262 K/uL (150-450); RED BLOOD CELL COUNT(AUTO) 4.43 MIL/uL (4.50-5.90); RED CELL DISTRIBUTION WIDTH 12.5 % (11.5-14.5)
[2018-12-29 21:20] LABS: ANION GAP 7 mmol/L (8-16); CARBON DIOXIDE 28 mmol/L (22-29); CHLORIDE 105 mmol/L (98-107); CREATININE 0.99 mg/dL (0.60-1.30); GLOMERULAR FILTR. RATE CALC > 60 mL/min (>60); GLUCOSE,RANDOM 97 mg/dL (70-110); POTASSIUM 3.9 mmol/L (3.5-5.1); SODIUM SERUM 140 mmol/L (136-145); UREA NITROGEN, BLOOD 19 mg/dL (7-18)
[2018-12-29 21:26] LABS: ALANINE AMINOTRANSFERASE 30 U/L (12-78); ALBUMIN 3.8 g/dL (3.4-5.0); ALKALINE PHOSPHATASE 125 U/L (46-116); ASPARTATE AMINOTRANSFERASE 25 U/L (15-37); BILIRUBIN,TOTAL 0.2 mg/dL (0.1-1.0); TOTAL PROTEIN, SERUM 7.3 g/dL (6.4-8.2)
[2018-12-29] MEDS ORDERED: LORazepam 1 MG TABLET PO ONE (21:30)
[2018-12-29] MEDS ORDERED: HALOPERIDOL 5 MG TABLET PO ONE (21:30)
[2018-12-29] MEDS ORDERED: QUEtiapine FUMARATE 200 MG TABLET PO ONE (21:30)
[2018-12-29 23:40] VITALS: BP 124/58
== END 2018-12-29 23:50 | disposition home or self-care (01) ==
LOC: EMS 19:10
DX: F25.9 Schizoaffective disorder, unspecified (principal); F41.9 Anxiety disorder, unspecified; T18.4XXA Foreign body in colon, initial encounter; F31.9 Bipolar disorder, unspecified; F11.90 Opioid use, unspecified, uncomplicated; F12.90 Cannabis use, unspecified, uncomplicated; F15.90 Other stimulant use, unspecified, uncomplicated; F17.210 Nicotine dependence, cigarettes, uncomplicated; Z59.0 Homelessness; Z79.899 Other long term (current) drug therapy; X58.XXXA Exposure to other specified factors, initial encounter; Y93.89 Activity, other specified; Y92.89 Other specified places as the place of occurrence of the external cause; Y99.8 Other external cause status
CPT/HCPCS: 74019

== ENCOUNTER 2019-01-02 15:07 | Inpatient (IN) | payer MEDICAID, OTHER ==
[~2019-01-02] VITALS: Ht 172.7 cm; Wt 106.3 kg
[~2019-01-02 15:07] MED LIST changes: -CHLO100T24 PO; -CHLO50I IM; -LITH600 PO
[2019-01-02] MEDS ORDERED: HALOPERIDOL 5 MG TABLET PO PRN (17:00)
[2019-01-02] MEDS ORDERED: ACETAMINOPHEN 325 MG TABLET PO PRN ×2 (17:15→23:00)
[2019-01-02] MEDS ORDERED: IBUPROFEN 400 MG TABLET PO PRN ×2 (17:15→23:00)
[2019-01-02 17:48] LABS: BASOPHILS % (AUTO) 0.1 % (0.0-2.0); EOSINOPHILS % (AUTO) 1.1 % (1.0-6.0); HEMOGLOBIN 13.9 g/dL (13.5-17.5); LYMPHOCYTES # (AUTO) 1.5 K/uL (1.0-4.8); LYMPHOCYTES % (AUTO) 20.8 % (22.0-44.0); MEAN CORPUSCULAR HEMOGLOBIN 30.8 pg (26.0-34.0); MEAN CORPUSCULAR HGB CONC 33.2 G/dL (31.0-37.0); MEAN CORPUSCULAR VOLUME 93 fL (80-100); MONOCYTES # (AUTO) 0.3 K/uL (0.1-1.0); MONOCYTES % (AUTO) 4.6 % (2.0-9.0); NEUTROPHILS # (AUTO) 5.4 K/uL (1.8-7.7); NEUTROPHILS % (AUTO) 73.4 % (40.0-70.0); PLATELET COUNT (AUTO) 250 K/uL (150-450); RED BLOOD CELL COUNT(AUTO) 4.53 MIL/uL (4.50-5.90); RED CELL DISTRIBUTION WIDTH 12.2 % (11.5-14.5)
[2019-01-02 17:56] LABS: ANION GAP 6 mmol/L (8-16); CALCIUM, TOTAL 9.4 mg/dL (8.8-10.5); CARBON DIOXIDE 30 mmol/L (22-29); CHLORIDE 101 mmol/L (98-107); GLOMERULAR FILTR. RATE CALC > 60 mL/min (>60); GLUCOSE,RANDOM 159 mg/dL (70-110); POTASSIUM 4.2 mmol/L (3.5-5.1); SODIUM SERUM 137 mmol/L (136-145); UREA NITROGEN, BLOOD 14 mg/dL (7-18)
[2019-01-02 18:02] LABS: ALANINE AMINOTRANSFERASE 33 U/L (12-78); ALBUMIN 3.8 g/dL (3.4-5.0); ALKALINE PHOSPHATASE 138 U/L (46-116); ASPARTATE AMINOTRANSFERASE 15 U/L (15-37); BILIRUBIN,TOTAL 0.2 mg/dL (0.1-1.0); TOTAL PROTEIN, SERUM 7.3 g/dL (6.4-8.2)
[2019-01-02] MEDS: LORazepam 2 MG TABLET PO PRN (18:32)
[2019-01-02] MEDS: ZOLPIDEM TARTRATE 10 MG TABLET PO PRN (21:01)
[2019-01-02 21:06] VITALS: BP 106/64
[2019-01-02] MEDS ORDERED: ALBUTEROL SULFATE HFA 90 MCG/PUFF 8 GM INHALER IH PRN (23:00)
[2019-01-02] MEDS ORDERED: DOCUSATE SODIUM 100 MG CAPSULE PO PRN (23:00)
[2019-01-02] MEDS ORDERED: GuaiFENesin/D-METHORPHAN [SUGAR-FREE] 200-20MG/10 ML SYRUP UDCUP PO PRN (23:00)
[2019-01-02] MEDS ORDERED: MAGNESIUM HYDROXIDE SUSPENSION 30 ML UDCUP PO PRN (23:00)
[2019-01-02] MEDS ORDERED: NICOTINE 14 MG/24 HOUR PATCH TD PRN (23:00)
[2019-01-02] MEDS ORDERED: ONDANSETRON HCL 4 MG TABLET PO PRN (23:00)
[2019-01-02] MEDS ORDERED: PETROLATUM,WHITE 28 GM JELLY TP PRN (23:00)
[2019-01-02] MEDS ORDERED: LOPERAMIDE HCL 2 MG CAPSULE PO PRN (23:00)
[2019-01-02] MEDS ORDERED: CloNIDine HCL 0.1 MG TABLET PO PRN (23:00)
[2019-01-03] MEDS: LORazepam 2 MG TABLET PO PRN ×3 (03:23→16:18)
[2019-01-03 03:24] VITALS: BP 105/69
[2019-01-03 08:09] LABS: BASOPHILS % (AUTO) 0.4 % (0.0-2.0); EOSINOPHILS % (AUTO) 1.4 % (1.0-6.0); HEMATOCRIT 41.8 % (41-53); HEMOGLOBIN 14.1 g/dL (13.5-17.5); LYMPHOCYTES % (AUTO) 29.2 % (22.0-44.0); MEAN CORPUSCULAR HEMOGLOBIN 31.1 pg (26.0-34.0); MEAN CORPUSCULAR HGB CONC 33.7 G/dL (31.0-37.0); MEAN CORPUSCULAR VOLUME 92 fL (80-100); MONOCYTES # (AUTO) 0.6 K/uL (0.1-1.0); MONOCYTES % (AUTO) 8.5 % (2.0-9.0); NEUTROPHILS # (AUTO) 4.1 K/uL (1.8-7.7); NEUTROPHILS % (AUTO) 60.5 % (40.0-70.0); PLATELET COUNT (AUTO) 243 K/uL (150-450); RED BLOOD CELL COUNT(AUTO) 4.54 MIL/uL (4.50-5.90); RED CELL DISTRIBUTION WIDTH 12.3 % (11.5-14.5)
[2019-01-03 08:41] LABS: HEMOGLOBIN A1C 5.3 % (4.5-6.2)
[2019-01-03 08:42] LABS: ALANINE AMINOTRANSFERASE 42 U/L (12-78); ALBUMIN 3.8 g/dL (3.4-5.0); ALKALINE PHOSPHATASE 131 U/L (46-116); ANION GAP 10 mmol/L (8-16); ASPARTATE AMINOTRANSFERASE 20 U/L (15-37); BILIRUBIN,TOTAL 0.3 mg/dL (0.1-1.0); CALCIUM, TOTAL 9.2 mg/dL (8.8-10.5); CARBON DIOXIDE 26 mmol/L (22-29); CHLORIDE 100 mmol/L (98-107); CHOL/HDL RATIO 4.8 (4.2-7.3); CHOLESTEROL 187 mg/dL (131-200); CREATININE 0.95 mg/dL (0.60-1.30); GLOMERULAR FILTR. RATE CALC > 60 mL/min (>60); GLUCOSE,RANDOM 107 mg/dL (70-110); HDL CHOLESTEROL 39 mg/dL (40-60); LDL CHOL (CALC.) 110 mg/dL (0-130); SODIUM SERUM 136 mmol/L (136-145); THYROID STIMULATING HORMONE 3.49 uIU/mL (0.36-3.74); TOTAL PROTEIN, SERUM 7.4 g/dL (6.4-8.2); TRIGLYCERIDES 191 mg/dL (15-150); UREA NITROGEN, BLOOD 15 mg/dL (7-18)
[2019-01-03 09:11] VITALS: BP 115/57
[2019-01-03] MEDS: HALOPERIDOL 10 MG TABLET PO SCH ×2 (12:41→16:18)
[2019-01-03 16:00] VITALS: BP 114/80
[2019-01-03] MEDS: BENZTROPINE MESYLATE 2 MG TABLET PO SCH (16:18)
[2019-01-03] MEDS: LACTULOSE 20 GM/30 ML SOLUTION UDCUP PO SCH (16:19)
[2019-01-03] MEDS: ZOLPIDEM TARTRATE 10 MG TABLET PO PRN (20:21)
[2019-01-03] MEDS: QUEtiapine FUMARATE 200 MG TABLET PO SCH (20:21)
[2019-01-04 07:10] VITALS: BP 123/78
[2019-01-04 08:44] VITALS: BP 134/74
[2019-01-04] MEDS: HALOPERIDOL 10 MG TABLET PO SCH (09:22)
[2019-01-04] MEDS: BENZTROPINE MESYLATE 2 MG TABLET PO SCH ×2 (09:22→16:36)
[2019-01-04] MEDS: LACTULOSE 20 GM/30 ML SOLUTION UDCUP PO SCH ×2 (09:22→16:37)
[2019-01-04] MEDS: LORazepam 2 MG TABLET PO PRN ×3 (09:22→17:44)
[2019-01-04] MEDS: OLANZapine 10 MG TABLET PO SCH ×2 (12:00→16:36)
[2019-01-04] MEDS ORDERED: LACTULOSE 20 GM/30 ML SOLUTION UDCUP PO PRN (15:00)
[2019-01-04 16:00] VITALS: BP 119/88
[2019-01-04] MEDS: OXcarbazepine 300 MG TABLET PO SCH (16:36)
[2019-01-04] MEDS: NICOTINE POLACRILEX 2 MG LOZENGE PO PRN (16:37)
[2019-01-04] MEDS: ZOLPIDEM TARTRATE 10 MG TABLET PO PRN (20:24)
[2019-01-04] MEDS: QUEtiapine FUMARATE 200 MG TABLET PO SCH (20:24)
[2019-01-05 00:27] VITALS: BP 118/86
[2019-01-05] MEDS: MAG HYDROX/AL HYDROX/SIMETH ES 30 ML SUSPENSION UDCUP PO PRN (04:22)
[2019-01-05] MEDS: NICOTINE POLACRILEX 2 MG LOZENGE PO PRN ×4 (04:32→20:36)
[2019-01-05 08:39] VITALS: BP 137/89
[2019-01-05] MEDS: OXcarbazepine 300 MG TABLET PO SCH ×2 (09:29→16:15)
[2019-01-05] MEDS: OLANZapine 10 MG TABLET PO SCH ×3 (09:29→16:15)
[2019-01-05] MEDS: BENZTROPINE MESYLATE 2 MG TABLET PO SCH ×2 (09:29→16:15)
[2019-01-05] MEDS: LACTULOSE 20 GM/30 ML SOLUTION UDCUP PO SCH ×2 (09:29→16:15)
[2019-01-05] MEDS: LORazepam 2 MG TABLET PO PRN ×3 (09:29→17:58)
[2019-01-05 16:37] VITALS: BP 112/76
[2019-01-05] MEDS ORDERED: OXCA300T29 PO (20:12)
[2019-01-05] MEDS ORDERED: OLAN10TA3 PO ×2 (20:12)
[2019-01-05] MEDS ORDERED: BENZ2TAB10 PO (20:12)
[2019-01-05] MEDS: ZOLPIDEM TARTRATE 10 MG TABLET PO PRN (20:36)
[2019-01-05] MEDS: QUEtiapine FUMARATE 200 MG TABLET PO SCH (20:36)
[2019-01-06 00:33] VITALS: BP 99/63
[2019-01-06] MEDS: LORazepam 2 MG TABLET PO PRN (03:06)
[2019-01-06 08:11] VITALS: BP 100/65
[2019-01-06] MEDS ORDERED: LACT30L PO (08:41)
[2019-01-06] MEDS: MAG HYDROX/AL HYDROX/SIMETH ES 30 ML SUSPENSION UDCUP PO PRN (09:36)
[2019-01-06] MEDS: BENZTROPINE MESYLATE 2 MG TABLET PO SCH (09:36)
[2019-01-06] MEDS: OLANZapine 10 MG TABLET PO SCH (09:36)
[2019-01-06] MEDS: OXcarbazepine 300 MG TABLET PO SCH (09:36)
[2019-01-06] MEDS: LACTULOSE 20 GM/30 ML SOLUTION UDCUP PO SCH (09:36)
[2019-01-06] MEDS: NICOTINE POLACRILEX 2 MG LOZENGE PO PRN (09:36)
== END 2019-01-06 10:51 | DRG 750 ==
LOC: EMS 15:08 → B3A 18:23
PROVIDERS: ADMIT Psychiatry & Neurology Psychiatry; ATTEND Psychiatry & Neurology Psychiatry
DX: F25.9 Schizoaffective disorder, unspecified (principal); T18.4XXA Foreign body in colon, initial encounter; R45.851 Suicidal ideations; G47.00 Insomnia, unspecified; E55.9 Vitamin D deficiency, unspecified; E66.9 Obesity, unspecified; E78.5 Hyperlipidemia, unspecified; F12.90 Cannabis use, unspecified, uncomplicated; F31.9 Bipolar disorder, unspecified; X58.XXXA Exposure to other specified factors, initial encounter; F15.90 Other stimulant use, unspecified, uncomplicated; K21.9 Gastro-esophageal reflux disease without esophagitis; Z91.5 Personal history of self-harm; Z68.35 Body mass index [BMI] 35.0-35.9, adult; Y93.89 Activity, other specified; Y92.89 Other specified places as the place of occurrence of the external cause; Y99.8 Other external cause status; Z72.89 Other problems related to lifestyle
CPT/HCPCS: 74019; 74022; 83036; 84443; G0480

== ENCOUNTER 2019-02-21 21:47 | Emergency (ER) | payer MEDICAID, OTHER ==
[~2019-02-21] VITALS: Ht 175.3 cm; Wt 52.3 kg
[~2019-02-21 21:47] MED LIST changes: +BENZ2TAB10 PO; -DIPH25 PO; -ERGO2000 PO; -HALO10 PO; +LACT30L PO; +OLAN10TA3 PO; +OXCA300T29 PO
[2019-02-21 23:30] LABS: BASOPHILS % (AUTO) 0.4 % (0.0-2.0); EOSINOPHILS % (AUTO) 1.5 % (1.0-6.0); HEMATOCRIT 40.2 % (41-53); HEMOGLOBIN 13.4 g/dL (13.5-17.5); LYMPHOCYTES # (AUTO) 2.5 K/uL (1.0-4.8); MEAN CORPUSCULAR HEMOGLOBIN 29.4 pg (26.0-34.0); MEAN CORPUSCULAR HGB CONC 33.3 G/dL (31.0-37.0); MEAN CORPUSCULAR VOLUME 89 fL (80-100); MONOCYTES # (AUTO) 0.6 K/uL (0.1-1.0); MONOCYTES % (AUTO) 8.2 % (2.0-9.0); NEUTROPHILS # (AUTO) 4.5 K/uL (1.8-7.7); NEUTROPHILS % (AUTO) 57.9 % (40.0-70.0); PLATELET COUNT (AUTO) 282 K/uL (150-450); RED BLOOD CELL COUNT(AUTO) 4.54 MIL/uL (4.50-5.90)
[2019-02-21 23:36] LABS: ANION GAP 9 mmol/L (8-16); CALCIUM, TOTAL 9.2 mg/dL (8.8-10.5); CARBON DIOXIDE 28 mmol/L (22-29); CHLORIDE 103 mmol/L (98-107); CREATININE 0.86 mg/dL (0.60-1.30); GLOMERULAR FILTR. RATE CALC > 60 mL/min (>60); GLUCOSE,RANDOM 107 mg/dL (70-110); POTASSIUM 3.7 mmol/L (3.5-5.1); SODIUM SERUM 140 mmol/L (136-145); UREA NITROGEN, BLOOD 18 mg/dL (7-18)
[2019-02-21 23:42] LABS: ACETAMINOPHEN < 2 mcg/mL (10-30); ALANINE AMINOTRANSFERASE 42 U/L (12-78); ALBUMIN 3.7 g/dL (3.4-5.0); ALKALINE PHOSPHATASE 121 U/L (46-116); ASPARTATE AMINOTRANSFERASE 12 U/L (15-37); BILIRUBIN,TOTAL 0.2 mg/dL (0.1-1.0); TOTAL PROTEIN, SERUM 7.2 g/dL (6.4-8.2)
[2019-02-21 23:43] LABS: SALICYLATE 1.2 mg/dL (2.8-20.0)
[2019-02-21 23:51] LABS: AMPHET/METH SCREEN,URINE NEGATIVE (NEGATIVE); BARBITURATE SCREEN, URINE NEGATIVE (NEGATIVE); BENZODIAZEPINES SCREEN,URINE NEGATIVE (NEGATIVE); CANNABINOID SCREEN,URINE NEGATIVE (NEGATIVE); COCAINE SCREEN,URINE NEGATIVE (NEGATIVE); METHADONE SCREEN, URINE NEGATIVE (NEGATIVE); OPIATE SCREEN,URINE NEGATIVE (NEGATIVE); PHENCYCLIDINE SCREEN,URINE NEGATIVE (NEGATIVE)
[2019-02-22 08:50] VITALS: BP 109/84
== END 2019-02-22 08:52 | disposition home or self-care (01) ==
LOC: EMS 21:48
DX: T18.9XXA Foreign body of alimentary tract, part unspecified, initial encounter (principal); F20.9 Schizophrenia, unspecified; R45.851 Suicidal ideations; F32.9 Major depressive disorder, single episode, unspecified; F41.9 Anxiety disorder, unspecified; F11.90 Opioid use, unspecified, uncomplicated; F12.90 Cannabis use, unspecified, uncomplicated; F15.90 Other stimulant use, unspecified, uncomplicated; F17.210 Nicotine dependence, cigarettes, uncomplicated; Z59.0 Homelessness; Z79.899 Other long term (current) drug therapy; X58.XXXA Exposure to other specified factors, initial encounter; Y93.89 Activity, other specified; Y92.89 Other specified places as the place of occurrence of the external cause; Y99.8 Other external cause status
CPT/HCPCS: 36415; 74022; 80053; 80307; 85025; 99284; G0480; G0481

== ENCOUNTER 2019-02-26 20:52 | Inpatient (IN) | payer MEDICAID, OTHER ==
[~2019-02-26] VITALS: Ht 175.3 cm; Wt 239.0 kg
[2019-02-26] MEDS ORDERED: CHLO100T24 PO (21:26)
[2019-02-26] MEDS ORDERED: DIPH25 PO (21:26)
[2019-02-26] MEDS ORDERED: SENN-187 PO (21:26)
[2019-02-26] MEDS ORDERED: CHOL100018 PO (21:26)
[2019-02-26] MEDS ORDERED: OXCA300T29 PO (21:26)
[2019-02-27] MEDS ORDERED: QUEtiapine FUMARATE 100 MG TABLET PO ONE (01:30)
[2019-02-27 01:31] LABS: BASOPHILS % (AUTO) 0.4 % (0.0-2.0); EOSINOPHILS % (AUTO) 1.5 % (1.0-6.0); HEMATOCRIT 43.5 % (41-53); HEMOGLOBIN 14.6 g/dL (13.5-17.5); LYMPHOCYTES # (AUTO) 2.1 K/uL (1.0-4.8); LYMPHOCYTES % (AUTO) 29.6 % (22.0-44.0); MEAN CORPUSCULAR HEMOGLOBIN 29.9 pg (26.0-34.0); MEAN CORPUSCULAR HGB CONC 33.5 G/dL (31.0-37.0); MEAN CORPUSCULAR VOLUME 89 fL (80-100); MONOCYTES # (AUTO) 0.5 K/uL (0.1-1.0); MONOCYTES % (AUTO) 7.6 % (2.0-9.0); NEUTROPHILS # (AUTO) 4.3 K/uL (1.8-7.7); NEUTROPHILS % (AUTO) 60.9 % (40.0-70.0); PLATELET COUNT (AUTO) 262 K/uL (150-450); RED BLOOD CELL COUNT(AUTO) 4.87 MIL/uL (4.50-5.90); RED CELL DISTRIBUTION WIDTH 13.1 % (11.5-14.5)
[2019-02-27 01:40] LABS: ANION GAP 6 mmol/L (8-16); CALCIUM, TOTAL 9.7 mg/dL (8.8-10.5); CARBON DIOXIDE 31 mmol/L (22-29); CHLORIDE 103 mmol/L (98-107); GLOMERULAR FILTR. RATE CALC > 60 mL/min (>60); GLUCOSE,RANDOM 94 mg/dL (70-110); POTASSIUM 4.3 mmol/L (3.5-5.1); SODIUM SERUM 140 mmol/L (136-145); UREA NITROGEN, BLOOD 17 mg/dL (7-18)
[2019-02-27] MEDS ORDERED: QUEtiapine FUMARATE 200 MG TABLET PO ONE (01:45)
[2019-02-27 01:46] LABS: ALANINE AMINOTRANSFERASE 47 U/L (12-78); ALKALINE PHOSPHATASE 134 U/L (46-116); ASPARTATE AMINOTRANSFERASE 18 U/L (15-37); BILIRUBIN,TOTAL 0.2 mg/dL (0.1-1.0); TOTAL PROTEIN, SERUM 7.7 g/dL (6.4-8.2)
[2019-02-27 02:09] LABS: AMPHET/METH SCREEN,URINE NEGATIVE (NEGATIVE); BARBITURATE SCREEN, URINE NEGATIVE (NEGATIVE); BENZODIAZEPINES SCREEN,URINE NEGATIVE (NEGATIVE); CANNABINOID SCREEN,URINE NEGATIVE (NEGATIVE); COCAINE SCREEN,URINE NEGATIVE (NEGATIVE); METHADONE SCREEN, URINE NEGATIVE (NEGATIVE); OPIATE SCREEN,URINE NEGATIVE (NEGATIVE); PHENCYCLIDINE SCREEN,URINE NEGATIVE (NEGATIVE)
[2019-02-27] MEDS ORDERED: HALOPERIDOL 5 MG TABLET PO PRN (08:45)
[2019-02-27] MEDS ORDERED: ZOLPIDEM TARTRATE 10 MG TABLET PO PRN (08:45)
[2019-02-27 11:13] VITALS: BP 118/77
[2019-02-27] MEDS ORDERED: ChlorproMAZINE HCL 100 MG TABLET PO PRN (11:30)
[2019-02-27] MEDS: LORazepam 2 MG TABLET PO PRN ×2 (11:58→17:10)
[2019-02-27] MEDS: OLANZapine 10 MG TABLET PO SCH ×2 (12:10→16:25)
[2019-02-27 16:07] VITALS: BP 106/60
[2019-02-27] MEDS: BENZTROPINE MESYLATE 2 MG TABLET PO SCH (16:25)
[2019-02-27] MEDS: OXcarbazepine 300 MG TABLET PO SCH (16:25)
[2019-02-27] MEDS: QUEtiapine FUMARATE 200 MG TABLET PO SCH (20:16)
[2019-02-28 01:42] VITALS: BP 122/80
[2019-02-28] MEDS ORDERED: INFLUENZA VIRUS VACCINE QVS 2019-20 (3YR+)/PF 60 MCG/0.5 ML SYRINGE IM ONE (04:30)
[2019-02-28] MEDS: LORazepam 2 MG TABLET PO PRN ×3 (06:39→19:03)
[2019-02-28 08:20] VITALS: BP 139/87
[2019-02-28 08:38] LABS: CHOL/HDL RATIO 4.4 (4.2-7.3)
[2019-02-28] MEDS: OLANZapine 10 MG TABLET PO SCH ×3 (08:40→16:42)
[2019-02-28] MEDS: OXcarbazepine 300 MG TABLET PO SCH ×2 (08:40→16:42)
[2019-02-28] MEDS: NICOTINE 14 MG/24 HOUR PATCH TD SCH ×2 (08:40→09:00)
[2019-02-28] MEDS: BENZTROPINE MESYLATE 2 MG TABLET PO SCH ×2 (08:40→16:42)
[2019-02-28] MEDS: VENLAFAXINE HCL 75 MG ER CAPSULE PO SCH (08:41)
[2019-02-28] MEDS ORDERED: NICOTINE POLACRILEX 2 MG LOZENGE PO PRN (11:00)
[2019-02-28] MEDS ORDERED: GuaiFENesin/D-METHORPHAN [SUGAR-FREE] 200-20MG/10 ML SYRUP UDCUP PO PRN (12:00)
[2019-02-28] MEDS ORDERED: ONDANSETRON HCL 4 MG TABLET PO PRN (12:00)
[2019-02-28] MEDS ORDERED: IBUPROFEN 400 MG TABLET PO PRN (12:00)
[2019-02-28] MEDS ORDERED: PETROLATUM,WHITE 28 GM JELLY TP PRN (12:00)
[2019-02-28] MEDS ORDERED: MAGNESIUM HYDROXIDE SUSPENSION 30 ML UDCUP PO PRN (12:00)
[2019-02-28] MEDS ORDERED: CloNIDine HCL 0.1 MG TABLET PO PRN (12:00)
[2019-02-28] MEDS ORDERED: ALBUTEROL SULFATE HFA 90 MCG/PUFF 8 GM INHALER IH PRN (12:00)
[2019-02-28] MEDS ORDERED: ACETAMINOPHEN 325 MG TABLET PO PRN (12:00)
[2019-02-28] MEDS ORDERED: NICOTINE 14 MG/24 HOUR PATCH TD PRN (12:00)
[2019-02-28] MEDS ORDERED: MAG HYDROX/AL HYDROX/SIMETH ES 30 ML SUSPENSION UDCUP PO PRN (12:00)
[2019-02-28] MEDS ORDERED: LOPERAMIDE HCL 2 MG CAPSULE PO PRN (12:00)
[2019-02-28] MEDS ORDERED: DOCUSATE SODIUM 100 MG CAPSULE PO PRN (12:00)
[2019-02-28 16:12] VITALS: BP 118/79
[2019-02-28] MEDS ORDERED: NICOTINE POLACRILEX 2 MG LOZENGE PO SCH (17:00)
[2019-02-28] MEDS: NICOTINE POLACRILEX 2 MG LOZENGE PO PRN (18:21)
[2019-02-28] MEDS: QUEtiapine FUMARATE 200 MG TABLET PO SCH (20:32)
[2019-03-01 00:39] VITALS: BP 116/71
[2019-03-01] MEDS: NICOTINE POLACRILEX 2 MG LOZENGE PO PRN ×2 (04:54→14:08)
[2019-03-01] MEDS: LORazepam 2 MG TABLET PO PRN ×3 (05:37→16:15)
[2019-03-01 08:14] VITALS: BP 119/66
[2019-03-01] MEDS: OLANZapine 10 MG TABLET PO SCH ×3 (08:27→16:15)
[2019-03-01] MEDS: OXcarbazepine 300 MG TABLET PO SCH ×2 (08:27→16:15)
[2019-03-01] MEDS: VENLAFAXINE HCL 75 MG ER CAPSULE PO SCH (08:27)
[2019-03-01] MEDS: BENZTROPINE MESYLATE 2 MG TABLET PO SCH ×2 (08:27→16:15)
[2019-03-01 08:33] LABS: ALANINE AMINOTRANSFERASE 36 U/L (12-78); ALBUMIN 3.4 g/dL (3.4-5.0); ALKALINE PHOSPHATASE 116 U/L (46-116); ANION GAP 5 mmol/L (8-16); ASPARTATE AMINOTRANSFERASE 17 U/L (15-37); BILIRUBIN,TOTAL 0.2 mg/dL (0.1-1.0); CALCIUM, TOTAL 8.4 mg/dL (8.8-10.5); CARBON DIOXIDE 33 mmol/L (22-29); CHLORIDE 106 mmol/L (98-107); CHOLESTEROL 213 mg/dL (131-200); CREATININE 0.71 mg/dL (0.60-1.30); GLOMERULAR FILTR. RATE CALC > 60 mL/min (>60); GLUCOSE,RANDOM 59 mg/dL (70-110); HDL CHOLESTEROL 43 mg/dL (40-60); LDL CHOL (CALC.) 137 mg/dL (0-130); POTASSIUM 4.4 mmol/L (3.5-5.1); SODIUM SERUM 144 mmol/L (136-145); TOTAL PROTEIN, SERUM 6.6 g/dL (6.4-8.2); TRIGLYCERIDES 166 mg/dL (15-150); UREA NITROGEN, BLOOD 13 mg/dL (7-18)
[2019-03-01 16:11] VITALS: BP 119/73
[2019-03-01] MEDS: QUEtiapine FUMARATE 200 MG TABLET PO SCH (20:35)
[2019-03-02 00:50] VITALS: BP 131/79
[2019-03-02] MEDS: NICOTINE POLACRILEX 2 MG LOZENGE PO PRN ×4 (02:35→19:59)
[2019-03-02 08:22] VITALS: BP 126/74
[2019-03-02] MEDS: OLANZapine 10 MG TABLET PO SCH ×3 (08:26→16:59)
[2019-03-02] MEDS: BENZTROPINE MESYLATE 2 MG TABLET PO SCH ×2 (08:26→17:00)
[2019-03-02] MEDS: OXcarbazepine 300 MG TABLET PO SCH ×2 (08:26→16:59)
[2019-03-02] MEDS: VENLAFAXINE HCL 75 MG ER CAPSULE PO SCH (08:26)
[2019-03-02] MEDS: LORazepam 2 MG TABLET PO PRN ×2 (12:27→16:59)
[2019-03-02 16:00] VITALS: BP 110/69
[2019-03-02] MEDS: QUEtiapine FUMARATE 200 MG TABLET PO SCH (20:47)
[2019-03-03 00:40] VITALS: BP 108/79
[2019-03-03] MEDS: NICOTINE POLACRILEX 2 MG LOZENGE PO PRN ×2 (02:09→09:08)
[2019-03-03] MEDS: LORazepam 2 MG TABLET PO PRN (06:48)
[2019-03-03] MEDS ORDERED: VENL-67 PO (08:03)
[2019-03-03 08:19] VITALS: BP 105/62
[2019-03-03] MEDS: OXcarbazepine 300 MG TABLET PO SCH (08:46)
[2019-03-03] MEDS: VENLAFAXINE HCL 75 MG ER CAPSULE PO SCH (08:46)
[2019-03-03] MEDS: BENZTROPINE MESYLATE 2 MG TABLET PO SCH (08:47)
[2019-03-03] MEDS: OLANZapine 10 MG TABLET PO SCH ×2 (08:47→12:27)
== END 2019-03-03 13:55 | disposition home or self-care (01) | DRG 750 ==
LOC: EMS 20:53 → B2S 02-27 09:22
PROVIDERS: ADMIT Psychiatry & Neurology Psychiatry; ATTEND Psychiatry & Neurology Psychiatry
DX: F25.0 Schizoaffective disorder, bipolar type (principal); T18.2XXA Foreign body in stomach, initial encounter; Z59.0 Homelessness; Z91.19 Patient's noncompliance with other medical treatment and regimen; E55.9 Vitamin D deficiency, unspecified; E78.00 Pure hypercholesterolemia, unspecified; E78.5 Hyperlipidemia, unspecified; F12.90 Cannabis use, unspecified, uncomplicated; F17.200 Nicotine dependence, unspecified, uncomplicated; F41.9 Anxiety disorder, unspecified; K21.9 Gastro-esophageal reflux disease without esophagitis; K59.00 Constipation, unspecified; Z91.5 Personal history of self-harm; X58.XXXA Exposure to other specified factors, initial encounter; Y93.89 Activity, other specified; Y92.89 Other specified places as the place of occurrence of the external cause; Y99.8 Other external cause status; Z28.21 Immunization not carried out because of patient refusal
CPT/HCPCS: 74018; 87081; G0480

== ENCOUNTER 2019-03-04 18:27 | Emergency (ER) | payer MEDICAID, OTHER ==
[~2019-03-04] VITALS: Ht 175.3 cm; Wt 113.6 kg
[~2019-03-04 18:27] MED LIST changes: +CHLO100T24 PO; +CHOL100018 PO; +DIPH25 PO; +SENN-187 PO; +VENL-67 PO
[2019-03-04 18:59] LABS: BASOPHILS % (AUTO) 0.4 % (0.0-2.0); EOSINOPHILS % (AUTO) 0.7 % (1.0-6.0); HEMATOCRIT 40.4 % (41-53); HEMOGLOBIN 13.4 g/dL (13.5-17.5); LYMPHOCYTES # (AUTO) 1.7 K/uL (1.0-4.8); LYMPHOCYTES % (AUTO) 20.7 % (22.0-44.0); MEAN CORPUSCULAR HEMOGLOBIN 29.6 pg (26.0-34.0); MEAN CORPUSCULAR HGB CONC 33.1 G/dL (31.0-37.0); MEAN CORPUSCULAR VOLUME 90 fL (80-100); MONOCYTES # (AUTO) 0.6 K/uL (0.1-1.0); MONOCYTES % (AUTO) 6.9 % (2.0-9.0); NEUTROPHILS # (AUTO) 5.8 K/uL (1.8-7.7); NEUTROPHILS % (AUTO) 71.3 % (40.0-70.0); PLATELET COUNT (AUTO) 234 K/uL (150-450); RED BLOOD CELL COUNT(AUTO) 4.51 MIL/uL (4.50-5.90); RED CELL DISTRIBUTION WIDTH 13.3 % (11.5-14.5)
[2019-03-04 19:12] LABS: ANION GAP 9 mmol/L (8-16); CARBON DIOXIDE 27 mmol/L (22-29); CHLORIDE 102 mmol/L (98-107); CREATININE 0.81 mg/dL (0.60-1.30); GLOMERULAR FILTR. RATE CALC > 60 mL/min (>60); GLUCOSE,RANDOM 128 mg/dL (70-110); POTASSIUM 3.7 mmol/L (3.5-5.1); SODIUM SERUM 138 mmol/L (136-145); UREA NITROGEN, BLOOD 14 mg/dL (7-18)
[2019-03-04 19:27] LABS: ALANINE AMINOTRANSFERASE 61 U/L (12-78); ALBUMIN 3.6 g/dL (3.4-5.0); ALKALINE PHOSPHATASE 129 U/L (46-116); ASPARTATE AMINOTRANSFERASE 22 U/L (15-37); BILIRUBIN,TOTAL 0.1 mg/dL (0.1-1.0); TOTAL PROTEIN, SERUM 7.5 g/dL (6.4-8.2)
[2019-03-04 19:45] LABS: ACETAMINOPHEN < 2 mcg/mL (10-30)
[2019-03-04 19:48] LABS: SALICYLATE 5.6 mg/dL (2.8-20.0)
[2019-03-04 20:15] LABS: AMPHET/METH SCREEN,URINE NEGATIVE (NEGATIVE); BARBITURATE SCREEN, URINE NEGATIVE (NEGATIVE); BENZODIAZEPINES SCREEN,URINE NEGATIVE (NEGATIVE); CANNABINOID SCREEN,URINE NEGATIVE (NEGATIVE); COCAINE SCREEN,URINE NEGATIVE (NEGATIVE); METHADONE SCREEN, URINE NEGATIVE (NEGATIVE); OPIATE SCREEN,URINE NEGATIVE (NEGATIVE)
[2019-03-04 20:16] LABS: PHENCYCLIDINE SCREEN,URINE NEGATIVE (NEGATIVE)
[2019-03-04 21:47] VITALS: BP 124/83
== END 2019-03-04 22:16 | disposition home or self-care (01) ==
LOC: EMS 18:28
DX: T18.4XXA Foreign body in colon, initial encounter (principal); E78.00 Pure hypercholesterolemia, unspecified; F41.9 Anxiety disorder, unspecified; F31.9 Bipolar disorder, unspecified; F20.9 Schizophrenia, unspecified; F17.210 Nicotine dependence, cigarettes, uncomplicated; F19.10 Other psychoactive substance abuse, uncomplicated; Z59.0 Homelessness; Z79.899 Other long term (current) drug therapy; X58.XXXA Exposure to other specified factors, initial encounter; Y93.89 Activity, other specified; Y92.89 Other specified places as the place of occurrence of the external cause; Y99.8 Other external cause status
CPT/HCPCS: 36415; 71045; 74018; 80053; 80307; 85025; 99284; G0480; G0481

== ENCOUNTER 2019-03-14 12:50 | Inpatient (IN) | payer MEDICAID, OTHER ==
[~2019-03-14] VITALS: Ht 175.3 cm; Wt 113.1 kg
[~2019-03-14 12:50] MED LIST changes: -CHLO100T24 PO; -CHOL100018 PO; -DIPH25 PO; -LACT30L PO; -SENN-187 PO
[2019-03-14 14:39] LABS: AMPHET/METH SCREEN,URINE NEGATIVE (NEGATIVE); BARBITURATE SCREEN, URINE NEGATIVE (NEGATIVE); BENZODIAZEPINES SCREEN,URINE NEGATIVE (NEGATIVE); CANNABINOID SCREEN,URINE NEGATIVE (NEGATIVE); COCAINE SCREEN,URINE NEGATIVE (NEGATIVE); METHADONE SCREEN, URINE NEGATIVE (NEGATIVE); OPIATE SCREEN,URINE NEGATIVE (NEGATIVE)
[2019-03-14 14:41] LABS: PHENCYCLIDINE SCREEN,URINE NEGATIVE (NEGATIVE)
[2019-03-14 14:54] LABS: BASOPHILS % (AUTO) 0.2 % (0.0-2.0); HEMATOCRIT 42.4 % (41-53); HEMOGLOBIN 14.1 g/dL (13.5-17.5); LYMPHOCYTES # (AUTO) 1.7 K/uL (1.0-4.8); MEAN CORPUSCULAR HEMOGLOBIN 29.9 pg (26.0-34.0); MEAN CORPUSCULAR HGB CONC 33.4 G/dL (31.0-37.0); MEAN CORPUSCULAR VOLUME 90 fL (80-100); MONOCYTES # (AUTO) 0.5 K/uL (0.1-1.0); MONOCYTES % (AUTO) 6.5 % (2.0-9.0); NEUTROPHILS # (AUTO) 4.9 K/uL (1.8-7.7); NEUTROPHILS % (AUTO) 68.3 % (40.0-70.0); PLATELET COUNT (AUTO) 272 K/uL (150-450); RED BLOOD CELL COUNT(AUTO) 4.72 MIL/uL (4.50-5.90); RED CELL DISTRIBUTION WIDTH 13.7 % (11.5-14.5)
[2019-03-14 15:08] LABS: ANION GAP 9 mmol/L (8-16); CALCIUM, TOTAL 9.4 mg/dL (8.8-10.5); CARBON DIOXIDE 29 mmol/L (22-29); CHLORIDE 100 mmol/L (98-107); CREATININE 0.79 mg/dL (0.60-1.30); GLOMERULAR FILTR. RATE CALC > 60 mL/min (>60); GLUCOSE,RANDOM 92 mg/dL (70-110); POTASSIUM 4.3 mmol/L (3.5-5.1); SODIUM SERUM 138 mmol/L (136-145); UREA NITROGEN, BLOOD 13 mg/dL (7-18)
[2019-03-14 15:16] LABS: ALANINE AMINOTRANSFERASE 65 U/L (12-78); ALBUMIN 3.8 g/dL (3.4-5.0); ALKALINE PHOSPHATASE 137 U/L (46-116); ASPARTATE AMINOTRANSFERASE 24 U/L (15-37); BILIRUBIN,TOTAL 0.3 mg/dL (0.1-1.0); TOTAL PROTEIN, SERUM 8.2 g/dL (6.4-8.2)
[2019-03-14] MEDS ORDERED: LORazepam 2 MG TABLET PO ONE (15:45)
[2019-03-14] MEDS ORDERED: OLANZapine 5 MG TABLET PO ONE (15:45)
[2019-03-14] MEDS ORDERED: ZOLPIDEM TARTRATE 10 MG TABLET PO PRN (16:15)
[2019-03-14] MEDS ORDERED: HALOPERIDOL 5 MG TABLET PO PRN (16:15)
[2019-03-14 19:56] VITALS: BP 132/83
[2019-03-14] MEDS: OXcarbazepine 300 MG TABLET PO SCH (19:56)
[2019-03-14] MEDS: BENZTROPINE MESYLATE 2 MG TABLET PO SCH (19:57)
[2019-03-14] MEDS: OLANZapine 10 MG TABLET PO SCH (20:35)
[2019-03-14] MEDS: QUEtiapine FUMARATE 200 MG TABLET PO SCH (21:49)
[2019-03-14] MEDS: LORazepam 2 MG TABLET PO PRN (21:49)
[2019-03-15] MEDS ORDERED: INFLUENZA VIRUS VACCINE QVS 2019-20 (3YR+)/PF 60 MCG/0.5 ML SYRINGE IM ONE (05:00)
[2019-03-15] MEDS ORDERED: PNEUMOCOCCAL VACCINE POLYVALENT 0.5 ML VIAL [PPSV23] IM ONE (05:00)
[2019-03-15] MEDS: LORazepam 2 MG TABLET PO PRN ×3 (05:43→16:41)
[2019-03-15 05:54] VITALS: BP 134/86
[2019-03-15] MEDS: OLANZapine 10 MG TABLET PO SCH ×3 (08:17→16:41)
[2019-03-15] MEDS: VENLAFAXINE HCL 75 MG ER CAPSULE PO SCH (08:17)
[2019-03-15] MEDS: OXcarbazepine 300 MG TABLET PO SCH ×2 (08:17→16:41)
[2019-03-15] MEDS: BENZTROPINE MESYLATE 2 MG TABLET PO SCH ×2 (08:17→16:41)
[2019-03-15] MEDS: NICOTINE 21 MG/24 HOUR PATCH TD SCH (08:17)
[2019-03-15 08:20] VITALS: BP 114/80
[2019-03-15 08:38] LABS: CHOL/HDL RATIO 5.2 (4.2-7.3); FREE T4 (FREE THYROXINE) 0.75 ng/dL (0.76-1.46); THYROID STIMULATING HORMONE 1.89 uIU/mL (0.36-3.74)
[2019-03-15 16:38] VITALS: BP 126/74
[2019-03-15] MEDS: QUEtiapine FUMARATE 200 MG TABLET PO SCH (20:32)
[2019-03-16 05:52] VITALS: BP 120/81
[2019-03-16] MEDS: LORazepam 2 MG TABLET PO PRN ×3 (06:33→16:48)
[2019-03-16 08:20] VITALS: BP 124/71
[2019-03-16] MEDS: OLANZapine 10 MG TABLET PO SCH ×3 (08:20→16:05)
[2019-03-16] MEDS: BENZTROPINE MESYLATE 2 MG TABLET PO SCH ×2 (08:20→16:04)
[2019-03-16] MEDS: OXcarbazepine 300 MG TABLET PO SCH ×2 (08:20→16:04)
[2019-03-16] MEDS: VENLAFAXINE HCL 75 MG ER CAPSULE PO SCH (08:20)
[2019-03-16] MEDS: NICOTINE 21 MG/24 HOUR PATCH TD SCH (08:20)
[2019-03-16 16:00] VITALS: BP 136/75
[2019-03-16] MEDS: QUEtiapine FUMARATE 200 MG TABLET PO SCH (20:03)
[2019-03-17 02:05] VITALS: BP 114/90
[2019-03-17] MEDS: LORazepam 2 MG TABLET PO PRN ×4 (02:05→23:03)
[2019-03-17 08:16] VITALS: BP 120/69
[2019-03-17] MEDS: BENZTROPINE MESYLATE 2 MG TABLET PO SCH ×2 (08:25→16:17)
[2019-03-17] MEDS: VENLAFAXINE HCL 75 MG ER CAPSULE PO SCH (08:25)
[2019-03-17] MEDS: OXcarbazepine 300 MG TABLET PO SCH ×2 (08:25→16:17)
[2019-03-17] MEDS: OLANZapine 10 MG TABLET PO SCH ×3 (08:26→16:17)
[2019-03-17] MEDS: NICOTINE 21 MG/24 HOUR PATCH TD SCH (08:26)
[2019-03-17 16:04] VITALS: BP 129/85
[2019-03-17] MEDS: QUEtiapine FUMARATE 200 MG TABLET PO SCH (20:17)
[2019-03-18 00:55] VITALS: BP 102/63
[2019-03-18 04:20] VITALS: BP 115/79
[2019-03-18] MEDS: LORazepam 2 MG TABLET PO PRN ×3 (04:29→17:00)
[2019-03-18 08:09] VITALS: BP 114/72
[2019-03-18] MEDS: BENZTROPINE MESYLATE 2 MG TABLET PO SCH ×2 (08:33→16:05)
[2019-03-18] MEDS: OLANZapine 10 MG TABLET PO SCH ×3 (08:33→16:05)
[2019-03-18] MEDS: OXcarbazepine 300 MG TABLET PO SCH ×2 (08:33→16:05)
[2019-03-18] MEDS: VENLAFAXINE HCL 75 MG ER CAPSULE PO SCH (08:33)
[2019-03-18] MEDS: NICOTINE 21 MG/24 HOUR PATCH TD SCH (08:34)
[2019-03-18 16:11] VITALS: BP 116/80
[2019-03-18] MEDS: QUEtiapine FUMARATE 200 MG TABLET PO SCH (20:07)
[2019-03-19 00:16] VITALS: BP 112/72
[2019-03-19] MEDS: LORazepam 2 MG TABLET PO PRN ×2 (00:55→05:26)
[2019-03-19 08:00] VITALS: BP 144/89
[2019-03-19] MEDS: BENZTROPINE MESYLATE 2 MG TABLET PO SCH (08:09)
[2019-03-19] MEDS: OXcarbazepine 300 MG TABLET PO SCH (08:09)
[2019-03-19] MEDS: VENLAFAXINE HCL 75 MG ER CAPSULE PO SCH (08:09)
[2019-03-19] MEDS: OLANZapine 10 MG TABLET PO SCH ×2 (08:09→12:10)
[2019-03-19] MEDS: NICOTINE 21 MG/24 HOUR PATCH TD SCH (09:00)
== END 2019-03-19 12:40 | disposition home or self-care (01) | DRG 750 ==
LOC: EMS 12:51 → B2S 17:36
PROVIDERS: ADMIT Psychiatry & Neurology Psychiatry; ATTEND Psychiatry & Neurology Psychiatry
DX: F25.0 Schizoaffective disorder, bipolar type (principal); R45.851 Suicidal ideations; Z59.0 Homelessness; K21.9 Gastro-esophageal reflux disease without esophagitis; K59.00 Constipation, unspecified; F17.200 Nicotine dependence, unspecified, uncomplicated; F12.90 Cannabis use, unspecified, uncomplicated; E78.5 Hyperlipidemia, unspecified; E78.00 Pure hypercholesterolemia, unspecified; E55.9 Vitamin D deficiency, unspecified; Z91.19 Patient's noncompliance with other medical treatment and regimen; Z91.5 Personal history of self-harm
CPT/HCPCS: 74018; 84439; 84443; 87081; G0480

== ENCOUNTER 2019-03-20 19:12 | Inpatient (IN) | payer MEDICAID, OTHER ==
[~2019-03-20] VITALS: Ht 175.3 cm; Wt 119.3 kg
[2019-03-20 20:16] LABS: BASOPHILS % (AUTO) 0.4 % (0.0-2.0); EOSINOPHILS % (AUTO) 0.8 % (1.0-6.0); HEMATOCRIT 41.7 % (41-53); HEMOGLOBIN 13.8 g/dL (13.5-17.5); LYMPHOCYTES # (AUTO) 1.9 K/uL (1.0-4.8); LYMPHOCYTES % (AUTO) 21.7 % (22.0-44.0); MEAN CORPUSCULAR HEMOGLOBIN 29.4 pg (26.0-34.0); MEAN CORPUSCULAR HGB CONC 33.1 G/dL (31.0-37.0); MEAN CORPUSCULAR VOLUME 89 fL (80-100); MONOCYTES # (AUTO) 0.6 K/uL (0.1-1.0); MONOCYTES % (AUTO) 6.6 % (2.0-9.0); NEUTROPHILS # (AUTO) 6.3 K/uL (1.8-7.7); NEUTROPHILS % (AUTO) 70.5 % (40.0-70.0); PLATELET COUNT (AUTO) 267 K/uL (150-450); RED BLOOD CELL COUNT(AUTO) 4.68 MIL/uL (4.50-5.90); RED CELL DISTRIBUTION WIDTH 13.7 % (11.5-14.5)
[2019-03-20 20:20] LABS: AMPHET/METH SCREEN,URINE NEGATIVE (NEGATIVE); BARBITURATE SCREEN, URINE NEGATIVE (NEGATIVE); BENZODIAZEPINES SCREEN,URINE NEGATIVE (NEGATIVE); CANNABINOID SCREEN,URINE NEGATIVE (NEGATIVE); COCAINE SCREEN,URINE NEGATIVE (NEGATIVE); METHADONE SCREEN, URINE NEGATIVE (NEGATIVE); OPIATE SCREEN,URINE NEGATIVE (NEGATIVE)
[2019-03-20 20:21] LABS: PHENCYCLIDINE SCREEN,URINE NEGATIVE (NEGATIVE)
[2019-03-20 20:23] LABS: ANION GAP 8 mmol/L (8-16); CALCIUM, TOTAL 9.1 mg/dL (8.8-10.5); CARBON DIOXIDE 30 mmol/L (22-29); CHLORIDE 100 mmol/L (98-107); CREATININE 0.86 mg/dL (0.60-1.30); GLOMERULAR FILTR. RATE CALC > 60 mL/min (>60); GLUCOSE,RANDOM 88 mg/dL (70-110); POTASSIUM 4.5 mmol/L (3.5-5.1); SODIUM SERUM 138 mmol/L (136-145); UREA NITROGEN, BLOOD 15 mg/dL (7-18)
[2019-03-20 20:29] LABS: ALANINE AMINOTRANSFERASE 66 U/L (12-78); ALBUMIN 3.6 g/dL (3.4-5.0); ALKALINE PHOSPHATASE 131 U/L (46-116); ASPARTATE AMINOTRANSFERASE 27 U/L (15-37); BILIRUBIN,TOTAL 0.2 mg/dL (0.1-1.0); TOTAL PROTEIN, SERUM 7.8 g/dL (6.4-8.2)
[2019-03-20] MEDS ORDERED: ZOLPIDEM TARTRATE 10 MG TABLET PO PRN (23:00)
[2019-03-20] MEDS ORDERED: LORazepam 2 MG TABLET PO PRN (23:00)
[2019-03-20] MEDS ORDERED: HALOPERIDOL 5 MG TABLET PO PRN (23:00)
[2019-03-20] MEDS ORDERED: QUEtiapine FUMARATE 100 MG TABLET PO ONE (23:45)
[2019-03-21 01:21] VITALS: BP 130/82
[2019-03-21 03:33] LABS: APPEARANCE,URINE CLEAR (CLEAR); BILIRUBIN,URINE NEGATIVE (NEGATIVE); GLUCOSE, URINE (UA) NEGATIVE (NEGATIVE); KETONES,URINE NEGATIVE (NEGATIVE); LEUKOCYTE ESTERASE ,URINE NEGATIVE (NEGATIVE); NITRATE,URINE NEGATIVE (NEGATIVE); OCCULT BLOOD,URINE NEGATIVE (NEGATIVE); PH,URINE 5.5 (5.0-8.0); PROTEIN,URINE NEGATIVE (NEGATIVE); UROBILINOGEN,URINE 0.2 mg/dL (<=1.0)
[2019-03-21 04:24] LABS: CHOL/HDL RATIO 4.3 (4.2-7.3); CHOLESTEROL 275 mg/dL (131-200); HDL CHOLESTEROL 64 mg/dL (40-60); LDL CHOL (CALC.) 173 mg/dL (0-130); TRIGLYCERIDES 192 mg/dL (15-150)
[2019-03-21] MEDS ORDERED: ZOLPIDEM TARTRATE 10 MG TABLET PO PRN (07:45)
[2019-03-21 08:14] VITALS: BP 121/93
[2019-03-21] MEDS: LORazepam 2 MG TABLET PO PRN ×2 (09:10→13:45)
[2019-03-21] MEDS: HALOPERIDOL 5 MG TABLET PO PRN ×2 (09:10→13:45)
[2019-03-21] MEDS: NICOTINE 21 MG/24 HOUR PATCH TD SCH (10:06)
[2019-03-21] MEDS: OLANZapine 10 MG TABLET PO SCH ×2 (13:44→16:16)
[2019-03-21] MEDS: VENLAFAXINE HCL 150 MG ER CAPSULE PO SCH (14:43)
[2019-03-21] MEDS: OXcarbazepine 300 MG TABLET PO SCH (16:16)
[2019-03-21] MEDS: BENZTROPINE MESYLATE 2 MG TABLET PO SCH (16:16)
[2019-03-21 16:59] VITALS: BP 111/70
[2019-03-21] MEDS ORDERED: QUEtiapine FUMARATE 200 MG TABLET PO SCH (21:00)
[2019-03-22 07:40] LABS: CHOL/HDL RATIO 4.2 (4.2-7.3)
[2019-03-22 08:35] VITALS: BP 110/75
[2019-03-22] MEDS ORDERED: NICOTINE 21 MG/24 HOUR PATCH TD SCH (09:00)
[2019-03-22] MEDS: VENLAFAXINE HCL 150 MG ER CAPSULE PO SCH (10:00)
[2019-03-22] MEDS: HALOPERIDOL 5 MG TABLET PO PRN (10:02)
[2019-03-22] MEDS: OXcarbazepine 300 MG TABLET PO SCH (10:02)
[2019-03-22] MEDS: NICOTINE 21 MG/24 HOUR PATCH TD SCH (10:03)
[2019-03-22] MEDS: LORazepam 2 MG TABLET PO PRN (10:03)
[2019-03-22] MEDS: OLANZapine 10 MG TABLET PO SCH ×3 (10:03→13:38)
[2019-03-22] MEDS: BENZTROPINE MESYLATE 2 MG TABLET PO SCH (10:03)
[2019-03-22] MEDS ORDERED: VENL-67 PO (12:30)
[2019-03-23] MEDS ORDERED: VENLAFAXINE HCL 75 MG ER CAPSULE PO SCH (09:00)
== END 2019-03-22 13:00 | DRG 750 ==
LOC: EMS 19:16 → 3EC 03-21 00:19
PROVIDERS: ADMIT Psychiatry & Neurology Psychiatry; ATTEND Psychiatry & Neurology Psychiatry
DX: F25.0 Schizoaffective disorder, bipolar type (principal); T18.9XXA Foreign body of alimentary tract, part unspecified, initial encounter; Z59.0 Homelessness; E66.9 Obesity, unspecified; Z91.19 Patient's noncompliance with other medical treatment and regimen; E78.00 Pure hypercholesterolemia, unspecified; Z68.38 Body mass index [BMI] 38.0-38.9, adult; E78.5 Hyperlipidemia, unspecified; F17.200 Nicotine dependence, unspecified, uncomplicated; F19.90 Other psychoactive substance use, unspecified, uncomplicated; F41.9 Anxiety disorder, unspecified; Z91.5 Personal history of self-harm; X58.XXXA Exposure to other specified factors, initial encounter; Y93.89 Activity, other specified; Y92.89 Other specified places as the place of occurrence of the external cause; Y99.8 Other external cause status; X78.9XXA Intentional self-harm by unspecified sharp object, initial encounter
CPT/HCPCS: 74022; 87081; G0480